=== PATIENT | male | born 1945 | race Caucasian/White ===

== ENCOUNTER 2016-05-19 05:06 | Day surgery (SDC) | payer OTHER ==
[2016-05-18 12:37] VITALS: BMI 29.7
[2016-05-19] MEDS ORDERED: MIDAZOLAM HCL 2 MG/2 ML SINGLE DOSE VIAL ONE ×2 (09:03→09:29)
[2016-05-19] MEDS ORDERED: BUPIVACAINE HCL/PF 0.5% (5MG/ML) 10 ML VIAL ONE (09:15)
[2016-05-19] MEDS ORDERED: CLINDAMYCIN 600 MG PREMIX BAG IVPB ONE (09:31)
[2016-05-19] MEDS ORDERED: BUPIVACAINE HCL/PF 0.5% (5MG/ML) 10 ML VIAL IJ ONE (09:42)
[2016-05-19] MEDS ORDERED: ONDANSETRON 4 MG/2 ML VIAL IVPUSH PRN (10:14)
[2016-05-19] MEDS ORDERED: PROMETHAZINE HCL 25 MG/1 ML VIAL IVPUSH PRN (10:14)
[2016-05-19] MEDS ORDERED: oxyCODONE HCL 5 MG TABLET PO PRN (10:14)
--- NOTE | 2016-05-19 10:20 | HP ---
Admitting History and Physical - Primary Care Physician PCP: David Gill ([employer]) - Admission Chief Complaint: chronic ulceration distal right 2nd toe History of Present Illness: Right 2nd toe is rigidly hammered and patient has suffered from chronic pressure ulceration on the tip of the digit for many months. The wound has been successfully treated with padding and topical wound care and is currently healed. We plan to perform distal amputation electively to prevent pressure wound from recurring. History Source: Medical Record (History deferred to PCP) - Past Medical History Cardiovascular: Yes: HTN, Hyperlipdemia Endocrine: Yes: Diabetes Mellitus (on insulin pump) - Past Surgical History Past Surgical History: Yes: Amputation (tip of right first toe), CABG (in 12/31) - Smoking History Smoking history: Former smoker Have you smoked in the past 12 months: No Aproximately how many cigarettes per day: 4 If you are a former smoker, when did you quit?: 25 YRS AGO - Alcohol/Substance Use Hx Alcohol Use: Yes (occas) History of Substance Use: reports: None - Social History ADL: Independent History of Recent Travel: No Home Medications - Allergies Allergies/Adverse Reactions: Allergies Allergy/AdvReac Type Severity Reaction Status Date / Time Penicillins Allergy Swelling Verified 05/19/16 07:42 Sulfa (Sulfonamide Allergy Swelling Verified 05/19/16 07:42 Antibiotics) - Home Medications Home Medications: Ambulatory Orders Subcutaneous Insulin Pump [Insulin Pump] 1 each MC QID 07/21/11 Atorvastatin Ca [Lipitor] 40 mg PO DAILY 05/12/15 Metoprolol Tartrate [Lopressor -] 25 mg PO BID 06/23/15 Aspirin Coated [Ecotrin -] 81 mg PO DAILY 05/18/16 Clindamycin [Cleocin -] 300 mg PO TID 05/18/16 Ergocalciferol (Vitamin D2) [Vitamin D2] 2,000 unit PO DAILY 05/18/16 Physical Examination Vital Signs: Vital Signs Temperature 96.3 F L 05/19/16 07:38 Pulse Rate 79 05/19/16 07:38 Respiratory Rate 20 05/19/16 07:38 Blood Pressure 161/72 05/19/16 07:38 O2 Sat by Pulse Oximetry (%) 99 05/19/16 07:38 Extremities: Yes: Other (Right 2nd toe is rigidly hammered with chronic cutaneous and naild dystrophy from pressure exerted on these structures. No wound is currently present on the distal aspect of the right 2nd toe.) Peripheral Pulses: Left Doralis Pedis: 2+, Right Dorsalis Pedis: 2+ Assessment/Plan Assessment Right 2nd toe is currently not ulcerated but because of rigid hammering deformity it will reulcerate of not corrected. No cutaneous infection or ulceration is currently present. Plan Distal phalangeal amputation is planned to prevent distal skin damage. I consider this approach to be most conservative while at the same time preventing distal pressure to the toe.
[2016-05-19 10:54] VITALS: TEMP 98.2
--- NOTE | 2016-05-19 10:55 | OP ---
DATE OF OPERATION: 05/19/2016 PREOPERATIVE DIAGNOSIS: Chronic rigid hammertoe, right 2nd, with history of chronic distal toe ulceration. POSTOPERATIVE DIAGNOSIS: Chronic rigid hammertoe, right 2nd, with history of chronic distal toe ulceration. PROCEDURE: Distal amputation of the right 2nd toe at the distal interphalangeal joint on an elective basis. Under fractional anesthesia and a surgical scrub with Betadine scrub and solution x2, the patient was draped using sterile technique. Inspection of the right 2nd toe showed a distal dystrophic nail and skin area from the chronic ulceration that was present previously. Note that there was no erythema, edema, ulceration, or sign of infection at the distal phalanx currently. The proximal interphalangeal joint and the distal interphalangeal joint were rigidly plantarflexed, allowing the toe no range of motion. Following injection of 3 mL of Marcaine 0.5 plain, a curvilinear incision was made around the distal aspect of the toe surrounding the toenail, preserving the plantar fat pad of the digit. The distal phalanx was disarticulated from the middle phalanx using sharp dissection and the entire soft tissue and bony segment, including the distal phalanx, was resected from the toe. The plantar fat pad was carefully preserved, and the plantar flap was reapproximated into a normal anatomic position to cover the amputation site. It was found that the skin flap had to be pulled under slight tension in order to close the wound, so it was decided that a small amount of additional bone could be removed from the distal aspect of the middle phalanx. Using a bone-cutting forceps, this was achieved and then a rongeur was used to round the edges. The wound was copiously irrigated with sterile saline, and then the plantar skin flap was approximated over the distal aspect of the toe and carefully sutured with 3-0 Prolene simple interrupted sutures. The toe now anatomically reduced or should I say the distal skin flap properly placed on the distal aspect of the toe and no excessive bleeding was noted and vascular perfusion to the flap was noted, so an Adaptic and sterile dressing were applied to the toe and the right foot. The patient tolerated surgical procedure well and left the operating room stable, alert, awake, and in no pain. JATINDER OLVERA/[id number]
[2016-05-19 13:00] VITALS: BP 159/94; PULSE 77
--- NOTE | 2016-05-23 13:41 | PATH ---
Surgical Pathology Report Patient Name: MATILDA [place] [facility]. Rec. #: [id number] /Age/Gender: 1945 (Age: 71) / M Account: [id number] Location: [facility] Taken: 05/19/2016 Received: 05/19/2016 Reported: 05/23/2016 Physicians: David Gill M.D. Specimen(s) Received DISTAL PHALANX AMPUTATION RIGHT TOE Clinical History Right foot hammertoe Final Diagnosis DISTAL PHALANX, RIGHT TOE, AMPUTATION: BONE AND CARTILAGE WITH DEGENERATIVE CHANGES. BONE AND SOFT TISSUE AT THE RESECTION MARGIN APPEAR VIABLE. Electronically Signed Khari De La Garza M.D. Gross Description Received in formalin, labeled "distal phalanx amputation right toe" is a 1.9 x 1.4 x 1.1 cm portion of a distal toe amputation specimen. The epidermal surface displays a 1.3 x 0.9 cm garcia unguis. Separately received within the same container are 2 garcia bone fragments averaging 0.7 cm in greatest dimension. Home [facility]osp[facility] Rn sections are submitted in 4 cassettes as follows: 1-bone margin, following decalcification; 2-skin and soft tissue margin; 3-full thickness sections of specimen, following decalcification; 4-separately received bone fragments, following decalcification. 05/22/201605/22/2016
== END 2016-05-19 12:15 | disposition home or self-care (01) ==
LOC: JASU-SURG 05:06
PROVIDERS: ATTEND Podiatrist Foot Surgery
PROC: 0Y6R0Z3 Detachment at Right 2nd Toe, Low, Open Approach (ICD-10-PCS; principal; 2016-05-19 09:00)
DX: M20.41 Other hammer toe(s) (acquired), right foot (principal); E11.622 Type 2 diabetes mellitus with other skin ulcer; L97.519 Non-pressure chronic ulcer of other part of right foot with unspecified severity; Z96.41 Presence of insulin pump (external) (internal); I10 Essential (primary) hypertension
CPT/HCPCS: 73630-TC-RT; 88304-TC; 88311-TC; 94760

== ENCOUNTER 2016-09-20 16:35 | Emergency (ER) | payer OTHER ==
[2016-09-20 16:41] VITALS: BP 149/82; PULSE 99; TEMP 97; BMI 28.8
--- NOTE | 2016-09-20 18:48 | PDOC ---
History of Present Illness - History of Present Illness Initial Comments: 09/20/16 18:42 The patient is a 71 year old male, with a significant past medical history of HTN, DM, CVA, CABG, PVD, and DVT who presents to the emergency department with swelling of right lower extremity. Reports progressive reddening, skin discoloration, and swelling of right lower extremity/ankle of 1 month duration. Currently being treated with antibiotics by Dr. Gill at [facility] for infection of right-sided big toe. Follows Dr. Preston [facility] surgery for PVD. Diagnosed with DVT of right lower extremity by ultrasound 1 month ago. Denies heparin/warfarin anticoagulation. Currently on Aspirin. Reports applying two medicated ointments to right lower leg. Denies calf tenderness, recent traveling, or trauma to leg. Right leg is non weight bearing d/t pain. Reports chronic diabetic neuropathy of BL LE, and denies warm/cold sensations. The patient denies chest pain, shortness of breath, hemoptysis, headache and dizziness. Denies fever, chills, nausea, vomit, diarrhea and constipation. Denies dysuria, frequency, urgency and hematuria. 09/20/16 19:05 <Adiel Stafford - Last Filed: 09/20/16 19:24> <Bam Aviles - Last Filed: 09/21/16 00:55> - General Chief Complaint: Redness To Affected Area Stated Complaint: PCP SENT/RT LEG PAIN Time Seen by Provider: 09/20/16 17:01 Past History - Past Medical History Anemia: No Asthma: No Cancer: No Cardiac Disorders: Yes (CAD) CVA: No COPD: No Dementia: No Diabetes: Yes (iddm on unsulin pump) GI Disorders: No Disorders: No HTN: Yes Hypercholesterolemia: Yes Liver Disease: No Seizures: No Thyroid Disease: No - Surgical History Abdominal Surgery: No Appendectomy: No Cardiac Surgery: Yes (BYPASS 12/31) Cholecystectomy: No Lung Surgery: No Neurologic Surgery: No Orthopedic Surgery: No (Right 1st Toe Debridement) - Psycho/Social/Smoking Cessation Hx Anxiety: No Suicidal Ideation: No Smoking Status: No Smoking History: Former smoker Years of Tobacco Use: 22 Have you smoked in the past 12 months: No Number of Cigarettes Smoked Daily: 4 If you are a former smoker, when did you quit?: 25 YRS Information on smoking cessation initiated: No Hx Alcohol Use: Yes (SOCIAL) Drug/Substance Use Hx: No Substance Use Type: None Hx Substance Use Treatment: No <Adiel Stafford - Last Filed: 09/20/16 19:24> <Bam Aviles - Last Filed: 09/21/16 00:55> - Past Medical History Allergies/Adverse Reactions: Allergies Allergy/AdvReac Type Severity Reaction Status Date / Time Penicillins Allergy Swelling Verified 09/20/16 16:41 Sulfa (Sulfonamide Allergy Swelling Verified 09/20/16 16:41 Antibiotics) Home Medications: Ambulatory Orders Subcutaneous Insulin Pump [Insulin Pump] 1 each MC QID 07/21/11 Atorvastatin Ca [Lipitor] 40 mg PO DAILY 05/12/15 Metoprolol Tartrate [Lopressor -] 25 mg PO BID 06/23/15 Aspirin Coated [Ecotrin -] 81 mg PO DAILY 05/18/16 Clindamycin [Cleocin -] 300 mg PO TID 05/18/16 Review of Systems - Review of Systems Comments:: 09/20/16 18:56 GENERAL/CONSTITUTIONAL: No fever or chills. No weakness. HEAD, EYES, EARS, NOSE AND THROAT: No change in vision. No ear pain or discharge. No sore throat. CARDIOVASCULAR: No chest pain or shortness of breath RESPIRATORY: No cough, wheezing, or hemoptysis. GASTROINTESTINAL: No nausea, vomiting, diarrhea or constipation. GENITOURINARY: No dysuria, frequency, or change in urination. MUSCULOSKELETAL: No joint or muscle swelling or pain. No neck or back pain. Lower right extremity 5/5 strength. SKIN: + bluish/purplish circumferential stasis dermatitis of right lower extremity 2 inches above medial and lateral malleolus extending 4 inches porixmally. Skin is eczematous. Absent drainage and ecchymosis. Palpable dorsal pedal pulses bilaterally. Lower right extremity is TTP, warm, and erythematous. NEUROLOGIC: No headache, vertigo, loss of consciousness, or change in strength. Diminished sensation to pinprick throughout distal BL LE. ENDOCRINE: No increased thirst. No abnormal weight change HEMATOLOGIC/LYMPHATIC: No anemia, easy bleeding, or history of blood clots. ALLERGIC/IMMUNOLOGIC: No hives or skin allergy. <Adiel Stafford - Last Filed: 09/20/16 19:24> *Physical Exam - Vital Signs Last Vital Signs Temp Pulse Resp BP Pulse Ox 97.0 F L 99 H 20 149/82 99 09/20/16 16:37 09/20/16 16:37 09/20/16 16:37 09/20/16 16:37 09/20/16 16:37 <Adiel Stafford - Last Filed: 09/20/16 19:24> - Vital Signs Last Vital Signs Temp Pulse Resp BP Pulse Ox 97.0 F L 99 H 20 149/82 99 09/20/16 16:37 09/20/16 16:37 09/20/16 16:37 09/20/16 16:37 09/20/16 16:37 - Physical Exam Comments: 09/20/16 23:08 EXAMINATION CONSTITUTIONAL: Well-appearing; well-nourished; in no apparent distress HEAD: Normocephalic; atraumatic EYES: PERRL; EOM intact ENMT: External appears normal; normal oropharynx NECK: Supple; non-tender; no cervical lymphadenopathy CARD: Normal S1, S2; no murmurs, rubs, or gallops RESP: Normal chest excursion with respiration; breath sounds clear and equal bilaterally; no wheezes, rhonchi, or rales ABD: Soft, non-distended; non-tender; no palpable organomegaly, no palpable hernias EXT: RLE: + well demarcated area of erythema (approx 46rit0ol) to the distal 1/ 3 of the lower extr, warm to touch, with several plaque like lessions along the periphery of the lession, with +3 pitting edema c/w cellulitis. + stage 3 ulcer to the plantar aspect of the distal phalnge of the right great toe w/o surrounding erythema/purulence. LLE: 2cm plaque like lession to the lateral aspect of mid lower extr; with +2 pitting edema. SKIN: Warm, dry, see above. NEURO: No focal neurological deficiencies. <Bam Aviles - Last Filed: 09/21/16 00:55> ED Treatment Course - RADIOLOGY Radiology Studies Ordered: Category Date Time Status DUPLEX VASCUL US-1 LEG [US] Stat Ultrasound 09/20/16 18:20 Ordered <Adiel Stafford - Last Filed: 09/20/16 19:24> - LABORATORY CBC & Chemistry Diagram: 09/20/16 19:19 09/20/16 19:19 - ADDITIONAL ORDERS Additional order review: Laboratory Results 09/20/16 09/20/16 19:19 19:19 INR 1.04 Sodium 137 Potassium 4.5 Chloride 104 Carbon Dioxide 28 Anion Gap 5 L BUN 24 H D Creatinine 1.2 Creat Clearance w eGFR 59.68 Random Glucose 60 L D Calcium 8.9 Total Bilirubin 1.4 H D AST 21 ALT 19 D Alkaline Phosphatase 85 Total Protein 7.2 Albumin 3.6 09/20/16 19:19 RBC 4.37 MCV 83.4 MCHC 34.0 RDW 12.8 MPV 8.6 Neutrophils % 76.0 D Lymphocytes % 13.2 D Monocytes % 8.9 Eosinophils % 1.4 Basophils % 0.5 - Medications Given in the ED: ED Medications Discontinued Medications Generic Name Dose Route Start Last Admin Trade Name Freq PRN Reason Stop Dose Admin Dalbavancin 1,500 mg/ Dextrose 500 mls @ 1,000 mls/hr 09/20/16 22:14 09/20/16 23:05 IVPB 09/20/16 22:43 1,000 mls/hr ONCE ONE Administration <Bam Aviles - Last Filed: 09/21/16 00:55> Medical Decision Making - Medical Decision Making 09/20/16 19:05 71 yo male with h/o PVD, DVT, DM, CVA, and CABG who presents with redness and swelling of RL extremity Recently dx. with DVT on U/S 1 month ago. ED Course: - CBC - PT/INR - Blood Culture - Venous ultrasound right LE 09/20/16 19:15 <Adiel Stafford - Last Filed: 09/20/16 19:24> *DC/Admit/Observation/Transfer - Attestations Physician Attestion: 09/20/16 19:25 I, Dr. Adiel Stafford, attest that this document has been prepared under my direction and personally reviewed by me in its entirety. I further attest, that it accurately reflects all work, treatment, procedures and medical decision -making performed by me. <Adiel Stafford - Last Filed: 09/20/16 19:24> <aBm Aviles - Last Filed: 09/21/16 00:55> Diagnosis at time of Disposition: Cellulitis Qualifiers: Site of cellulitis: extremity Site of cellulitis of extremity: lower extremity Laterality: right Qualified Code(s): L03.115 - Cellulitis of right lower limb - Discharge Dispostion Disposition: HOME Condition at time of disposition: Stable - Referrals Referrals: Cas Rollins MD [Primary Care Provider] - - Patient Instructions Printed Discharge Instructions: DI for Cellulitis -- Adult
[2016-09-20 20:17] LABS: ALBUMIN 3.6 g/dl (3.4-5.0); ANION GAP 5 (8-16); BILIRUBIN,TOTAL 1.4 mg/dL (0.2-1.0); CALCIUM 8.9 mg/dL (8.5-10.1); CO2 28 mmol/L (21-32); CREATININE 1.2 mg/dL (0.7-1.3); GLUCOSE,RANDOM 60 mg/dL (74-106); SGOT/AST 21 U/L (15-37); SGPT/ALT 19 U/L (12-78); TOT PROT 7.2 g/dl (6.4-8.2)
[2016-09-20 20:18] LABS: ALK PHOS 85 U/L (45-117); INR 1.04 (0.82-1.09); PROTHROMBIN TIME (PATIENT) 11.5 SEC (9.98-11.88)
[2016-09-20 20:29] LABS: BASOPHIL 0.5 % (0-2.0); EOSINOPHIL 1.4 % (0-4.5); MCH 28.3 pg (25.7-33.7); MEAN CELL VOLUME 83.4 fl (80-96); MEAN PLT VOLUME 8.6 fl (7.5-11.1); PLATELET COUNT 226 K/MM3 (134-434); RDW 12.8 % (11.9-15.9); WHITE BLOOD COUNT 7.8 K/mm3 (4.0-10.0)
[2016-09-20] MEDS ORDERED: DALBAVANCIN HCL 1,500 MG in DEXTROSE 5%-WATER - 500 ML IVPB ONE (22:14)
[2016-09-20] MEDS ORDERED: DALBAVANCIN HCL 500 MG VIAL (RESTRICTED TO ID ONLY) IVPB ONE ×2 (22:47→22:49)
--- NOTE | 2016-09-20 23:46 | PDOC ---
Attending Attestation - Resident Resident Name: Adiel Stafford - ED Attending Attestation I have performed the following: I have examined & evaluated the patient, The case was reviewed & discussed with the resident, I agree w/resident's findings & plan, Exceptions are as noted - HPI HPI: 09/20/16 23:44 71-year-old male with history of diabetes and peripheral vascular disease presents with worsening right lower extremity erythema over the past several weeks that has failed outpatient therapy with clindamycin, with associated generalized weakness, malaise, elevated blood sugar despite compliance with hypoglycemic medication regimen and chills. - Physicial Exam PE: 09/20/16 23:45 Patient is awake and alert, nontoxic-appearing, afebrile in the ED. Right lower extremity reveals an approximately 10 x 8 cm area of well demarcated erythema which is warm to touch with several plaque-like lesions along the periphery of the lesion consistent with cellulitis. Right great toe also reveals a 0.5 cm stage III ulceration to the plantar aspect of distal phalanx. - Medical Decision Making 09/20/16 23:46 Patient is a well-appearing 71-year-old male with history diabetes and peripheral vascular disease who presents with right lower extremity edema and erythema. Doppler ultrasound shows no evidence of DVT. CBC/CMP within normal limit. A discussed the case with Dr. Jax jacobsen. We'll administer Fritch's and will discharge with outpatient follow-up.
== END 2016-09-21 00:55 | disposition home or self-care (01) ==
LOC: JER 16:35
DX: L03.115 Cellulitis of right lower limb (principal); I10 Essential (primary) hypertension; E11.9 Type 2 diabetes mellitus without complications; Z86.73 Personal history of transient ischemic attack (TIA), and cerebral infarction without residual deficits; Z95.1 Presence of aortocoronary bypass graft; Z86.718 Personal history of other venous thrombosis and embolism; Z79.4 Long term (current) use of insulin; E78.00 Pure hypercholesterolemia, unspecified
CPT/HCPCS: 36415; 80053; 85025; 85610; 87040; 93971-TC; 99283-25; J0875

== ENCOUNTER 2016-10-04 16:20 | Inpatient (IN) | payer OTHER ==
--- NOTE | 2016-10-04 16:51 | PDOC ---
History of Present Illness <Bam Aviles - Last Filed: 10/04/16 18:38> - History of Present Illness Initial Comments: 10/04/16 17:17 Patient is a 71 year old male with significant medical hx of HTN, DM, CVA, CABG , PVD, and DVT who is presenting to the ED with elevated blood sugar measurements for the past two days. Patient reports having blood sugar measurement of 384 several hours after having a bowl of cereal with a banana this morning. He states that he the same thing happened to him yesterday. Patient notes that he is on an insulin pump and that his sugar read 87 in the ED. Patient began treatment with dalvance ten days ago when he was last seen in the ED for right leg cellulitis. He notes that he recently began clindamycin again in addition for treatment. He reports improvement since his last visit. The patient is followed by Dr. Gill for podiatry and today the patient was x- rayed which revealed erosion of the right toe and he is scheduled for amputation of the toe this Sunday. PCP: Cas Rollins MD Allergies: Penicillins, Sulfa <Gilda Syed - Last Filed: 10/04/16 21:17> - General Chief Complaint: Blood Sugar Problem Stated Complaint: PCP SENT Time Seen by Provider: 10/04/16 16:50 Past History - Past Medical History Anemia: No Asthma: No Cancer: No Cardiac Disorders: Yes (CAD) CVA: No COPD: No Dementia: No Diabetes: Yes (iddm on unsulin pump) GI Disorders: No Disorders: No HTN: Yes Hypercholesterolemia: Yes Liver Disease: No Seizures: No Thyroid Disease: No - Surgical History Abdominal Surgery: No Appendectomy: No Cardiac Surgery: Yes (BYPASS 12/31) Cholecystectomy: No Lung Surgery: No Neurologic Surgery: No Orthopedic Surgery: No (Right 1st Toe Debridement) - Psycho/Social/Smoking Cessation Hx Anxiety: No Suicidal Ideation: No Smoking Status: No Smoking History: Never smoked Years of Tobacco Use: 22 Have you smoked in the past 12 months: No Number of Cigarettes Smoked Daily: 4 If you are a former smoker, when did you quit?: 25 YRS Hx Alcohol Use: No Drug/Substance Use Hx: No Substance Use Type: None Hx Substance Use Treatment: No <Bam Aviles - Last Filed: 10/04/16 18:38> <Gilda Syed - Last Filed: 10/04/16 21:17> - Past Medical History Allergies/Adverse Reactions: Allergies Allergy/AdvReac Type Severity Reaction Status Date / Time Penicillins Allergy Swelling Verified 10/04/16 16:31 Sulfa (Sulfonamide Allergy Swelling Verified 10/04/16 16:31 Antibiotics) Home Medications: Ambulatory Orders Subcutaneous Insulin Pump [Insulin Pump] 1 each MC QID 07/21/11 Atorvastatin Ca [Lipitor] 40 mg PO DAILY 05/12/15 Metoprolol Tartrate [Lopressor -] 25 mg PO BID 06/23/15 Aspirin Coated [Ecotrin -] 81 mg PO DAILY 05/18/16 Clindamycin [Cleocin -] 300 mg PO TID 05/18/16 Bactroban Ointment (For Decolonization) - 1 applic TT BID 10/04/16 Clobetasol Prop 0.05% Top Cr 1 applic TP BID 10/04/16 Review of Systems - Review of Systems Comments:: 10/04/16 17:18 CONSTITUTIONAL: No fever, no chills, no fatigue EYES: No visual changes ENT: No ear pain, no sore throat CARDIOVASCULAR: No chest pain, no palpitations RESPIRATORY: No cough, no SOB GI: No abdominal pain, no nausea, no vomiting, no constipation, no diarrhea GENITOURINARY: No dysuria, no frequency, no hematuria MUSKULOSKELETAL: Right leg cellulitis. No backpain, no joint pain, no myalgias ENDOCRINE: Hyperglycemia SKIN: No rash NEURO: No headache <Gilda Syed - Last Filed: 10/04/16 21:17> *Physical Exam - Vital Signs Last Vital Signs Temp Pulse Resp BP Pulse Ox 98.1 F 84 20 113/50 98 10/04/16 16:27 10/04/16 16:27 10/04/16 16:27 10/04/16 16:27 10/04/16 16:27 - Physical Exam Comments: 10/04/16 18:38 EXTR: Right lower extremity: Minimal erythema to the medial aspect of the distal third of the lower extremity, well demarcated, warm to touch; great toe is erythematous with a stage IV ulceration noted with bone exposed consistent with osteomyelitis; dorsalis pedis and tibialis posterior are dopplerable bilaterally. <Bam Aviles - Last Filed: 10/04/16 18:38> - Vital Signs Last Vital Signs Temp Pulse Resp BP Pulse Ox 98.1 F 84 20 113/50 98 10/04/16 16:27 10/04/16 16:27 10/04/16 16:27 10/04/16 16:27 10/04/16 16:27 - Physical Exam Comments: 10/04/16 17:19 CONSTITUTIONAL: Well-appearing; well-nourished; in no apparent distress HEAD: Normocephalic; atraumatic EYES: PERRL; EOM intact ENMT: External appears normal; normal oropharynx NECK: Supple; non-tender; no cervical lymphadenopathy CARD: Normal S1, S2; no murmurs, rubs, or gallops RESP: Normal chest excursion with respiration; breath sounds clear and equal bilaterally; no wheezes, rhonchi, or rales ABD: Soft, non-distended; non-tender; no palpable organomegaly, no palpable hernias SKIN: Warm, dry, no rash NEURO: No focal neurological deficiencies. <Gilda Syed - Last Filed: 10/04/16 21:17> Heart Score/ECG Review #1 10/04/16 21:17 Normal sinus rhythm at 72 bpm Normal ECG <Gilda Syed - Last Filed: 10/04/16 21:17> ED Treatment Course - LABORATORY CBC & Chemistry Diagram: 10/04/16 17:20 10/04/16 17:20 <Bam Aviles - Last Filed: 10/04/16 18:38> - LABORATORY CBC & Chemistry Diagram: 10/04/16 17:20 10/04/16 18:16 - RADIOLOGY Radiograph Interpretation: 10/04/16 21:16 Vascular Study Impression: No DVT is identified involving either leg. Please see report. Reported By: Dave Chin MD <Gilda Syed - Last Filed: 10/04/16 21:17> Medical Decision Making - Medical Decision Making 10/04/16 18:41 Patient 71-year-old male with history of diabetes and peripheral vascular disease who recently was treated with Dalvance and by mouth clindamycin for suspected right lower externally cellulitis is referred to the ER by Dr. Gill of podiatry for suspected osteomyelitis of right great toe. Patient also complaining of intermittent hyperglycemia with a past several days while being compliant with his diabetic diet and insolent regimen. In the ER, patient is awake and alert, nontoxic-appearing, afebrile. Physical evaluation reveals decreased erythema of the right lower extremity consistent with improving cellulitis and a stage IV ulceration of the right great toe consistent with osteomyelitis. Patient will require admission for IV antibiotics and amputation with podiatry in several days. I discussed the case with Dr. Gastelum of infectious disease. She recommends administration of vancomycin and Levaquin; we 'll consult podiatry as well as vascular surgery. Will admit. <Bam Aviles - Last Filed: 10/04/16 18:38> *DC/Admit/Observation/Transfer - Discharge Dispostion Admit: Yes - Attestations Physician Attestion: 10/04/16 18:38 The documentation was prepared by the scribe under my direct supervision. I have reviewed the documentation which correctly represents the findings, medical decision-making and critical action taken by me. <Bam Aviles - Last Filed: 10/04/16 18:38> - Attestations Scribe Attestion: 10/04/16 17:19 Documentation prepared by Gilda Syed, acting as medical language specialist for Bam Aviles MD. <Gilda Syed - Last Filed: 10/04/16 21:17> Diagnosis at time of Disposition: Toe osteomyelitis, right
[2016-10-04] MEDS ORDERED: VANCOMYCIN 1,500 MG in DEXTROSE 5%-WATER - 500 ML IVPB ONE (17:17)
[2016-10-04] MEDS ORDERED: LEVOFLOXACIN 500 MG IVPB 100 ML IVPB ONE ×2 (17:17→17:27)
[2016-10-04 17:37] LABS: MCH 28.2 pg (25.7-33.7); MCHC 33.5 g/dl (32.0-35.9); MEAN CELL VOLUME 84.1 fl (80-96); MEAN PLT VOLUME 8.9 fl (7.5-11.1); NEUTROPHILS 70.5 % (42.8-82.8); PLATELET COUNT 305 K/MM3 (134-434)
[2016-10-04 18:19] LABS: ALBUMIN 3.6 g/dl (3.4-5.0); ANION GAP 7 (8-16); BILIRUBIN,TOTAL 1.3 mg/dL (0.2-1.0); C-REACTIVE PROTEIN 2.6 MG/DL (0.00-0.3); CALCIUM 9.1 mg/dL (8.5-10.1); CO2 28 mmol/L (21-32); CREATININE 1.3 mg/dL (0.7-1.3); GLUCOSE,RANDOM 57 mg/dL (74-106); SGPT/ALT 19 U/L (12-78); TOT PROT 7.8 g/dl (6.4-8.2)
[2016-10-04 18:20] LABS: ALK PHOS 95 U/L (45-117)
[2016-10-04 18:31] LABS: SGOT/AST 32 U/L (15-37)
[2016-10-04 18:41] LABS: INR 1.04 (0.82-1.09); PROTHROMBIN TIME (PATIENT) 11.5 SEC (9.98-11.88)
[2016-10-04 18:59] LABS: ERYTHROCYTE SEDIMENTATION RATE 52 mm/hr (0-20)
[2016-10-04 19:16] LABS: ALBUMIN 3.5 g/dl (3.4-5.0); ANION GAP 7 (8-16); BILIRUBIN,TOTAL 1.1 mg/dL (0.2-1.0); C-REACTIVE PROTEIN 2.2 MG/DL (0.00-0.3); CO2 28 mmol/L (21-32); CREATININE 1.3 mg/dL (0.7-1.3); GLUCOSE,RANDOM 125 mg/dL (74-106); SGOT/AST 15 U/L (15-37); SGPT/ALT 16 U/L (12-78); TOT PROT 7.3 g/dl (6.4-8.2)
[2016-10-04 19:17] LABS: ALK PHOS 90 U/L (45-117)
[2016-10-04 19:25] VITALS: BMI 29.7
[2016-10-04] MEDS ORDERED: ACETAMINOPHEN 325 MG TABLET (FP) PO PRN (19:47)
[2016-10-04] MEDS: HEPARIN NA (PORCINE) 5,000 UNITS/ML 1ML VIAL SQ SCH (22:22)
[2016-10-04] MEDS: ATORVASTATIN CA 40 MG TABLET (FP) PO SCH (22:23)
[2016-10-04] MEDS: METOPROLOL TARTRATE 25 MG TABLET (FP) PO SCH (22:23)
[2016-10-05 07:29] LABS: INR 1.03 (0.82-1.09); PROTHROMBIN TIME (PATIENT) 11.3 SEC (9.98-11.88)
[2016-10-05 07:30] LABS: BASOPHIL 0.9 % (0-2.0); MCH 28.4 pg (25.7-33.7); MCHC 33.8 g/dl (32.0-35.9); NEUTROPHILS 63.6 % (42.8-82.8); PLATELET COUNT 225 K/MM3 (134-434); WHITE BLOOD COUNT 6.5 K/mm3 (4.0-10.0)
[2016-10-05 07:31] LABS: ACTIVATED PTT 30.1 SECONDS (26.9-34.4)
[2016-10-05 07:43] LABS: ALBUMIN 3.2 g/dl (3.4-5.0); ALK PHOS 81 U/L (45-117); ANION GAP 4 (8-16); BILIRUBIN,TOTAL 0.8 mg/dL (0.2-1.0); CO2 31 mmol/L (21-32); CREATININE 1.1 mg/dL (0.7-1.3); GLUCOSE,RANDOM 111 mg/dL (74-106); SGOT/AST 18 U/L (15-37); SGPT/ALT 17 U/L (12-78); TOT PROT 6.8 g/dl (6.4-8.2)
--- NOTE | 2016-10-05 08:21 | HP ---
Admitting History and Physical - Admission History of Present Illness: 71 year old male with significant medical hx of HTN, DM, CVA, CABG, PVD, and ? DVT who is presenting to the ED with elevated blood sugar measurements for the past two days. Patient reports having blood sugar measurement of 384 several hours after having a bowl of cereal with a banana this morning. He states that he the same thing happened to him yesterday. Patient notes that he is on an insulin pump and that his sugar read 87 in the ED. Patient began treatment with dalvance ten days ago when he was last seen in the ED for right leg cellulitis. He notes that he recently began clindamycin again in addition for treatment. He reports improvement since his last visit. The patient is followed by Dr. Gill for podiatry and today the patient was x- rayed which revealed erosion of the right toe and he is scheduled for amputation of the toe this Sunday. 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: Yes: CVA Cardiovascular: Yes: CAD (-S/P CABG), HTN, Hyperlipdemia, Other (pad) Endocrine: Yes: Diabetes Mellitus (on insulin pump) - Past Surgical History Past Surgical History: Yes: Amputation (tip of right first toe), CABG (in 12/31) - Smoking History Smoking history: Former smoker Have you smoked in the past 12 months: No Aproximately how many cigarettes per day: 4 If you are a former smoker, when did you quit?: 25 YRS - Alcohol/Substance Use Hx Alcohol Use: No History of Substance Use: reports: None - Social History ADL: Independent History of Recent Travel: No Home Medications - Allergies Allergies/Adverse Reactions: Allergies Allergy/AdvReac Type Severity Reaction Status Date / Time Penicillins Allergy Swelling Verified 10/04/16 16:31 Sulfa (Sulfonamide Allergy Swelling Verified 10/04/16 16:31 Antibiotics) - Home Medications Home Medications: Ambulatory Orders Subcutaneous Insulin Pump [Insulin Pump] 1 each MC QID 07/21/11 Atorvastatin Ca [Lipitor] 40 mg PO DAILY 05/12/15 Metoprolol Tartrate [Lopressor -] 25 mg PO BID 06/23/15 Aspirin Coated [Ecotrin -] 81 mg PO DAILY 05/18/16 Clindamycin [Cleocin -] 300 mg PO TID 05/18/16 Bactroban Ointment (For Decolonization) - 1 applic TT BID 10/04/16 Clobetasol Prop 0.05% Top Cr 1 applic TP BID 10/04/16 Physical Examination Vital Signs: Vital Signs Temperature 97.9 F 10/05/16 07:00 Pulse Rate 66 10/05/16 07:00 Respiratory Rate 20 10/05/16 07:00 Blood Pressure 139/65 10/05/16 07:00 O2 Sat by Pulse Oximetry (%) 95 10/04/16 21:00 Cardiovascular: Yes: Regular Rate and Rhythm Respiratory: Yes: Regular, CTA Bilaterally Gastrointestinal: Yes: Normal Bowel Sounds, Soft. No: Tenderness Extremities: Yes: Erythema (OF RIGHT LEG ULCER ON TIP OF TOE--NO DRIANGE) Wound/Incision: Yes: Dressing Removed, Excoriated. No: Draining Labs: CBC, BMP 10/05/16 05:35 Problem List - Problems (1) Toe osteomyelitis, right Assessment/Plan: IV ABX PER ID XRAY RESULTS--MRI PODIATRY/VASCULAR Code(s): M86.9 - OSTEOMYELITIS, UNSPECIFIED (2) Type 2 diabetes mellitus treated with insulin Assessment/Plan: BGM INSULIN ENDO Code(s): E11.9 - TYPE 2 DIABETES MELLITUS WITHOUT COMPLICATIONS Z79.4 - GLASS CUTTER (CURRENT) USE OF INSULIN (3) Arteriosclerotic heart disease (ASHD) Assessment/Plan: CARDIO EKG Code(s): I25.10 - ATHSCL HEART DISEASE OF [place] CORONARY ARTERY W/O ANG PCTRS (4) Hx of CABG Assessment/Plan: ABOVE Code(s): Z95.1 - PRESENCE OF AORTOCORONARY BYPASS GRAFT
[2016-10-05 09:13] LABS: C-REACTIVE PROTEIN 1.9 MG/DL (0.00-0.3)
[2016-10-05] MEDS: METOPROLOL TARTRATE 25 MG TABLET (FP) PO SCH ×2 (09:37→21:33)
[2016-10-05] MEDS: HEPARIN NA (PORCINE) 5,000 UNITS/ML 1ML VIAL SQ SCH ×2 (09:37→21:32)
--- NOTE | 2016-10-05 11:28 | PN ---
Teaching Attending Note Name of Resident: Nabil aMrsh ATTENDING PHYSICIAN STATEMENT I saw and evaluated the patient. I reviewed the resident's note and discussed the case with the resident. I agree with the resident's findings and plan as documented. SUBJECTIVE: Evaluated with resident Chronic infection right great toe for years Has had amputation partial distal great toe 2nd toe Afebrile Poorly controlled DM OBJECTIVE: IDDM Chronic osteo great toe Stasis dermatitis LE ASSESSMENT AND PLAN: No antibiotics currently need Surgical consult for possible amputation of the great toe Stasis Dermatitis treated topically per Dr Rc Laws MD Problem List - Problems (1) Toe osteomyelitis, right Code(s): M86.9 - OSTEOMYELITIS, UNSPECIFIED (2) Type 2 diabetes mellitus treated with insulin Code(s): E11.9 - TYPE 2 DIABETES MELLITUS WITHOUT COMPLICATIONS Z79.4 - ASSISTED (CURRENT) USE OF INSULIN
[2016-10-05 11:33] LABS: URINE APPEARANCE CLEAR; URINE BILIRUBIN NEGATIVE (NEGATIVE); URINE BLOOD NEGATIVE (NEGATIVE); URINE COLOR LTYELLOW; URINE GLUCOSE (UA) 1+ (NEGATIVE); URINE KETONE NEGATIVE (NEGATIVE); URINE LEUK ESTERASE NEGATIVE (NEGATIVE); URINE NITRITE NEGATIVE (NEGATIVE); URINE PROTEIN NEGATIVE (NEGATIVE); URINE UROBILINOGEN NEGATIVE mg/dL (0.2-1.0)
--- NOTE | 2016-10-05 12:03 | CONSULT ---
Consultation: REQUESTING PROVIDER: CONSULT REQUEST: We have been asked to medically evaluate this patient for osteomyelitis and suspected cellulitis. HISTORY OF PRESENT ILLNESS: 71 yo man w/ pmh of DM2, HTN, and PVD who initially presented to ED due to hyperglycemia, currently requiring ID consult for osteomyelitis of R big toe and resolving rash on R LE. Pt currently being followed for chronic ulcer of R 1st digit secondary to PVD from DM2 by his podiatric medicine professor, Dr. Gill. Presented to ED roughly 10 days ago for worsening rash on anterior sandy of a few weeks duration, accompanied by worsening shooting pains to R dorsal hindfoot and calve , as well as mild fever. Pt had been receiving clindamycin as an outpt for rash , prescribed by his television script writer. Received 1 dose of dalvance in ED and discharged, with continuation of clindamycin. Since then, rash has been resolving. Pt endorses using topical clobetasol/bactroban for rash, with significant improvement and resolution of symptoms/improving ambulation. On current admission, recent XR of R foot suggestive of osteomyelitis of distal aspect of 1st digit. Pt endorses discussion with vascular surgeon about "marge procedure" to potential selectively remove infected bone from 1st digit. States that he experiences some chronic pain with ambulation on R foot and has had this condition for "years". Endorses chronic erythema and drainage from dorsal ulcer. Has received partial amputation of distal aspect of 1st and 2nd digit, likely due to PVD. He denies any fever, TAVERAS, chills, other rashes, cough, CP, N/V , abdominal pain, dysuria or diarrhea. No recent travel or sick contacts. Ed course notable for: 1. Vancomycin 1.5g IV once 2. Levaquin 500mg IV 3. Afebrile, normal WBC PMHx CVA CAD HTN HLD DM2 - on insulin pump. W/ peripheral neuropathy, not currently taking any medication. PSHx CABG in 2015 Amputation of 1st and 2nd distal phalanx of R foot Allergies Penicillin - Swelling Sulfa - Swelling Fam Hx non-contributory Social Hx No drug use. Social drinker. 25 year smoker, 4 cigs per day, quit 27 years ago. REVIEW OF SYSTEMS: CONSTITUTIONAL: Absent: fever, chills, diaphoresis, generalized weakness, malaise HEENT: Absent: rhinorrhea, nasal congestion, throat pain, throat swelling CARDIOVASCULAR: Absent: chest pain, syncope, palpitations, irregular heart rate, lightheadedness , peripheral edema RESPIRATORY: Absent: cough, shortness of breath, hemoptysis GASTROINTESTINAL: Absent: abdominal pain, abdominal distension, nausea, vomiting, diarrhea, constipation, melena, hematochezia GENITOURINARY: Absent: dysuria, frequency, urgency, hesitancy, hematuria, flank pain, genital pain MUSCULOSKELETAL: Pain with ambulation due to R big toe infection and paresthesias from R leg rash, chronic ulcer on dorsal aspect of big toe Absent: myalgia, arthralgia SKIN: BL LE rash on anterior shins, chronic erythema diffusely on 1st digit Absent: rash, itching, pallor HEMATOLOGIC/IMMUNOLOGIC: Absent: easy bleeding, easy bruising NEUROLOGIC: Absent: headache, focal weakness or paresthesias, unsteady gait PHYSICAL EXAMINATION CBC, BMP 10/05/16 05:35 10/05/16 05:35 Vital Signs - 24 hr 10/04/16 10/04/16 10/04/16 19:04 19:21 21:00 Temperature Pulse Rate 72 Pulse Rate [ 74 Radial] Respiratory 18 18 Rate Blood Pressure 137/68 Blood Pressure 132/80 [Right Arm] O2 Sat by Pulse 95 100 95 Oximetry (%) 10/04/16 10/05/16 10/05/16 22:00 07:00 10:00 Temperature 98.7 F 97.9 F 98.1 F Pulse Rate 75 66 70 Pulse Rate [ Radial] Respiratory 18 20 18 Rate Blood Pressure 143/72 139/65 136/65 Blood Pressure [Right Arm] O2 Sat by Pulse Oximetry (%) GENERAL: Awake, alert, and fully oriented, in no acute distress. HEAD: Normal with no signs of trauma. EYES: sclera anicteric, conjunctiva clear. No lid lag. LUNGS: Breath sounds equal, clear to auscultation bilaterally. No wheezes, and no crackles. No accessory muscle use. HEART: Regular rate and rhythm, normal S1 and S2 without murmur, rub or gallop. ABDOMEN: Soft, nontender, not distended, normoactive bowel sounds, no guarding, no rebound, no masses. MUSCULOSKELETAL: Normal range of motion at all joints. No bony deformities or tenderness. No CVA tenderness. UPPER EXTREMITIES: 2+ pulses, warm, well-perfused. No cyanosis. No clubbing. Cap refill <2 seconds. No peripheral edema. LOWER EXTREMITIES: BL resolving statis dermatitis on anterior shins, worse on R. Diffuse erythema of 1st digit with draining ulcer on dorsal surface of PIP, now most distal portion of toe. Amputation of DIP of R 1st and 2nd digit. 2+ pulses, warm, well-perfused. No calf tenderness. No peripheral edema. NEUROLOGICAL: Cranial nerves II-XII grossly intact. Intact sensation through LEs. 5/5 strength in all muscle groups. Normal speech. Gait not evaluated. PSYCHIATRIC: Cooperative. Good eye contact. Appropriate mood and affect. SKIN: Warm, dry, normal turgor. BL stasis dermatitis on anterior aspect of LE from midshin to ankle. Laboratory Results - last 24 hr 10/04/16 10/04/16 10/04/16 18:16 18:16 18:16 WBC RBC Hgb Hct MCV MCH MCHC RDW Plt Count MPV Neutrophils % Lymphocytes % Monocytes % Eosinophils % Basophils % ESR INR 1.04 PTT (Actin FS) Sodium 138 Potassium 4.6 Chloride 103 Carbon Dioxide 28 Anion Gap 7 L BUN 26 H Creatinine 1.3 Creat Clearance w eGFR 54.42 Random Glucose 125 H D Hemoglobin A1c % Calcium 9.0 Total Bilirubin 1.1 H AST 15 D ALT 16 Alkaline Phosphatase 90 C-Reactive Protein 2.2 H D Total Protein 7.3 Albumin 3.5 Urine Color Urine Appearance Urine pH Urine Protein Urine Glucose (UA) Urine Ketones Urine Blood Urine Nitrite Urine Bilirubin Urine Urobilinogen Ur Leukocyte Esterase Blood Type O POSITIVE Antibody Screen Negative 10/04/16 10/05/16 10/05/16 20:00 05:35 05:35 WBC 6.5 D RBC 4.22 Hgb 12.0 Hct 35.5 MCV 84.0 MCH 28.4 MCHC 33.8 RDW 13.0 Plt Count 225 D MPV 8.0 D Neutrophils % 63.6 Lymphocytes % 22.1 D Monocytes % 9.4 Eosinophils % 4.0 D Basophils % 0.9 ESR Cancelled INR 1.03 PTT (Actin FS) 30.1 Sodium Potassium Chloride Carbon Dioxide Anion Gap BUN Creatinine Creat Clearance w eGFR Random Glucose Hemoglobin A1c % Calcium Total Bilirubin AST ALT Alkaline Phosphatase C-Reactive Protein Total Protein Albumin Urine Color Urine Appearance Urine pH Urine Protein Urine Glucose (UA) Urine Ketones Urine Blood Urine Nitrite Urine Bilirubin Urine Urobilinogen Ur Leukocyte Esterase Blood Type Antibody Screen 10/05/16 10/05/16 10/05/16 05:35 05:35 08:00 WBC RBC Hgb Hct MCV MCH MCHC RDW Plt Count MPV Neutrophils % Lymphocytes % Monocytes % Eosinophils % Basophils % ESR INR PTT (Actin FS) Sodium 138 Potassium 4.4 Chloride 103 Carbon Dioxide 31 Anion Gap 4 L BUN 22 H Creatinine 1.1 Creat Clearance w eGFR > 60 Random Glucose 111 H Hemoglobin A1c % 9.3 H Calcium 9.0 Total Bilirubin 0.8 D AST 18 ALT 17 Alkaline Phosphatase 81 C-Reactive Protein 1.9 H D Total Protein 6.8 Albumin 3.2 L Urine Color Ltyellow Urine Appearance Clear Urine pH 6.0 Urine Protein Negative Urine Glucose (UA) 1+ H Urine Ketones Negative Urine Blood Negative Urine Nitrite Negative Urine Bilirubin Negative Urine Urobilinogen Negative Ur Leukocyte Esterase Negative Blood Type Antibody Screen 10/05/16 08:55 WBC RBC Hgb Hct MCV MCH MCHC RDW Plt Count MPV Neutrophils % Lymphocytes % Monocytes % Eosinophils % Basophils % ESR INR PTT (Actin FS) Sodium Potassium Chloride Carbon Dioxide Anion Gap BUN Creatinine Creat Clearance w eGFR Random Glucose Hemoglobin A1c % Calcium Total Bilirubin AST ALT Alkaline Phosphatase C-Reactive Protein Cancelled Total Protein Albumin Urine Color Urine Appearance Urine pH Urine Protein Urine Glucose (UA) Urine Ketones Urine Blood Urine Nitrite Urine Bilirubin Urine Urobilinogen Ur Leukocyte Esterase Blood Type Antibody Screen XR of foot (10/04) - Suggestive of osteomyelitis of R 1st digit. CXR (10/04) - unremarkable. No pulmonary disease. Active Medications Generic Name Dose Route Start Last Admin Trade Name Freq PRN Reason Stop Dose Admin Acetaminophen 650 mg 10/04/16 19:47 Tylenol - PO Q4H PRN FEVER OR PAIN Atorvastatin Calcium 40 mg 10/04/16 22:00 10/04/16 22:23 Lipitor - PO 40 mg HS RIO Administration Heparin Sodium (Porcine) 5,000 unit 10/04/16 22:00 10/05/16 09:37 Heparin - SQ 5,000 unit BID ROI Administration Metoprolol Tartrate 25 mg 10/04/16 22:00 10/05/16 09:37 Lopressor - PO 25 mg BID RIO Administration ASSESSMENT/PLAN: Assessment: 71 yo man w/ pmh of DM2, HTN, and PVD who initially presented to ED due to hyperglycemia, currently w/ osteomyelitis of R big toe and resolving rash on R LE. LE extremity rash likely statis dermatitis due to PVD, no evidence of cellulitis or active infectious process. R 1st digit with dorsal ulcer, mild erythema and drainage. Pt appears exasperated with toe and advocating for "Magre procedure". Imaging suggestive of osteomyelitis. Pt non- toxic, afebrile, with no WBC elevation and no infectious symptoms. Will not require abx at this time. Active problem list: Osteomyelitis of distal R 1st digit PVD w/ statis dermatitis of LEs DM2 Hyperglycemia Plan: #Lower extremity rash - Likely statis dermatitis - Will not require abx at this time - Continue topical w/ bactroban/clobetasol - f/u w/ outpt television script writer - Monitor for an infectious sxs's #Osteomyelitis - XR of R foot suggestive of osteomyelitis - Consult vascular surgery on possible selective amputation - Outpt management w/ podiatric medicine professor, Dr. Jairo Marsh MD, PGY1 Plan discussed w/ attending, Dr. Laws Dispo: We will continue to follow the patient. Thank you for this consultative opportunity. Problem List - Problems (1) Toe osteomyelitis, right Code(s): M86.9 - OSTEOMYELITIS, UNSPECIFIED (2) Type 2 diabetes mellitus treated with insulin Code(s): E11.9 - TYPE 2 DIABETES MELLITUS WITHOUT COMPLICATIONS Z79.4 - PSYCHOMETRIC EXAMINER (CURRENT) USE OF INSULIN (3) Peripheral vascular disease Code(s): I73.9 - PERIPHERAL VASCULAR DISEASE, UNSPECIFIED Visit type - Emergency Visit Emergency Visit: No - New Patient This patient is new to me today: Yes Date on this admission: 10/05/16 - Critical Care Critical Care patient: No
--- NOTE | 2016-10-05 14:39 | CON.CARD ---
Consult Consult Specialty:: Cardiology Referred by:: Ayo Reason for Consultation:: preop. cad - History of Present Illness Chief Complaint: Right toe pain History of Present Illness: 71 year old male with a pmhx of htn, dm, cva, pvd, ?DVT on pmd note, and known CAD s/p CABG in 2014 at [facility] (follows with Dr. Anne at [facility]) who presents with elevated glucose levels and noted to have R toe ulcer with concern for osteomyelitis. Patient says that he has not had any cardiac issues since surgery in 2014. No chest pain, dyspnea, or palpitations. No pnd, orthopnea, or edema. No syncope or near syncope. Up until few weeks ago when started having issues with RLE he was able to walk long distances. 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: CVA Cardio/Vascular: Yes: CAD (-S/P CABG), HTN, Hyperlipdemia, Other (pad) Endocrine: Yes: Diabetes Mellitus (on insulin pump) - Past Surgical History Past Surgical History: Yes: Amputation (tip of right first toe), CABG (in 12/31) - Alcohol/Substance Use Hx Alcohol Use: No History of Substance Use: reports: None - Smoking History Smoking history: Former smoker Have you smoked in the past 12 months: No Aproximately how many cigarettes per day: 4 If you are a former smoker, when did you quit?: 25 YRS - Social History ADL: Independent History of Recent Travel: No Home Medications - Allergies Allergies/Adverse Reactions: Allergies Allergy/AdvReac Type Severity Reaction Status Date / Time Penicillins Allergy Swelling Verified 10/04/16 16:31 Sulfa (Sulfonamide Allergy Swelling Verified 10/04/16 16:31 Antibiotics) - Home Medications Home Medications: Ambulatory Orders Subcutaneous Insulin Pump [Insulin Pump] 1 each QID 07/21/11 Atorvastatin Ca [Lipitor] 40 mg PO DAILY 05/12/15 Metoprolol Tartrate [Lopressor -] 25 mg PO BID 06/23/15 Aspirin Coated [Ecotrin -] 81 mg PO DAILY 05/18/16 Clindamycin [Cleocin -] 300 mg PO TID 05/18/16 Bactroban Ointment (For Decolonization) - 1 applic TT BID 10/04/16 Clobetasol Prop 0.05% Top Cr 1 applic TP BID 10/04/16 Vital Signs: Vital Signs Temperature 97.9 F 10/05/16 13:29 Pulse Rate 64 10/05/16 13:29 Respiratory Rate 20 10/05/16 13:29 Blood Pressure 126/60 10/05/16 13:29 O2 Sat by Pulse Oximetry (%) 95 10/05/16 09:00 Constitutional: Yes: No Distress Neck: Yes: Supple Respiratory: Yes: CTA Bilaterally Gastrointestinal: Yes: Normal Bowel Sounds, Soft Cardiovascular: Yes: Regular Rate and Rhythm JVD: No Carotid Bruit: No Heart Sounds: Yes: S1, S2 Murmur: No: Systolic Murmur Extremities: Yes: Other (RLE skin color changes and with R toe ulcer) Edema: No - Other Data Labs, Other Data: CBC, BMP 10/05/16 05:35 10/05/16 05:35 INR, PTT INR 1.03 (0.82-1.09) 10/05/16 05:35 Imaging - Results Chest X-ray: Report Reviewed X-ray: Report Reviewed Problem List - Problems (1) Hx of CABG Code(s): Z95.1 - PRESENCE OF AORTOCORONARY BYPASS GRAFT Assessment/Plan 71 year old male with a pmhx of htn, dm, cva, pvd, ?DVT on pmd note, and known CAD s/p CABG in 2015 at [facility] (follows with Dr. Anne at [facility]) who presents with elevated glucose levels and noted to have R toe ulcer with concern for osteomyelitis. Patient says that he has not had any cardiac issues since surgery in 2015. No chest pain, dyspnea, or palpitations. No pnd, orthopnea, or edema. No syncope or near syncope. Up until few weeks ago when started having issues with RLE he was able to walk long distances. 1) Possible Right Toe Ostemyelitis -Abx as per ID Planned for possible amputation of toe. Patient's cardiac risk factors are htn, dm, cva, pvd, and known CAD s/p CABG in 2015. Patient denies any chest pain, dyspnea, or palpitations. No signs of chf on exam. Up until few weeks ago was walking long distances (until right foot issues). Vitals stable Would continue metoprolol periop EKG is unremarkable sinus rhythm at 72bpm with no ischemic changes. No cardiac contraindications to surgery noted. 2) CAD statin and metoprolol Aspirin on hold presumed for possible surgery and would restart when deemed possible as per surgery.
--- NOTE | 2016-10-05 16:33 | EKG ---
Test Reason : Blood Pressure : / mmHG Vent. Rate : 072 BPM Atrial Rate : 072 BPM P-R Int : 162 ms QRS Dur : 088 ms QT Int : 394 ms P-R-T Axes : 068 062 068 degrees QTc Int : 431 ms NORMAL SINUS RHYTHM NORMAL ECG WHEN COMPARED WITH ECG OF 07-APR-2016 09:32, NO SIGNIFICANT CHANGE WAS FOUND Confirmed by GIL GARZA MD ([id number]) on 10/05/2016 4:32:36 PM Referred By: Confirmed By:GIL GARZA MD
--- NOTE | 2016-10-05 16:35 | EKG ---
Test Reason : Blood Pressure : / mmHG Vent. Rate : 071 BPM Atrial Rate : 071 BPM P-R Int : 162 ms QRS Dur : 092 ms QT Int : 406 ms P-R-T Axes : 068 055 062 degrees QTc Int : 441 ms NORMAL SINUS RHYTHM NORMAL ECG WHEN COMPARED WITH ECG OF 04-OCT-2016 17:42, NO SIGNIFICANT CHANGE WAS FOUND Confirmed by GIL GARZA MD ([id number]) on 10/05/2016 4:35:14 PM Referred By: JAMARCUS PUGA Confirmed By:GIL GARZA MD
[2016-10-05] MEDS: ATORVASTATIN CA 40 MG TABLET (FP) PO SCH (21:33)
--- NOTE | 2016-10-05 22:33 | CONSULT ---
Consult - History of Present Illness History of Present Illness: 71 year old man with infected ulcer of right 1st toe treated by Dr. Gill. He has been followed in my office for bilateral venous stasis with compression and topical steroids. He has had a DVT of a right peroneal vein. He continues to have redness and pain in the left medial ankle. No fever. He is admitted for surgery on the toe. 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: CVA Cardio/Vascular: Yes: CAD (-S/P CABG), HTN, Hyperlipdemia, Other (pad) Endocrine: Yes: Diabetes Mellitus (on insulin pump) - Past Surgical History Past Surgical History: Yes: Amputation (tip of right first toe), CABG (in 12/31) - Alcohol/Substance Use Hx Alcohol Use: No History of Substance Use: reports: None - Smoking History Smoking history: Former smoker Have you smoked in the past 12 months: No Aproximately how many cigarettes per day: 4 If you are a former smoker, when did you quit?: 25 YRS - Social History ADL: Independent History of Recent Travel: No Home Medications - Allergies Allergies/Adverse Reactions: Allergies Allergy/AdvReac Type Severity Reaction Status Date / Time Penicillins Allergy Swelling Verified 10/04/16 16:31 Sulfa (Sulfonamide Allergy Swelling Verified 10/04/16 16:31 Antibiotics) - Home Medications Home Medications: Ambulatory Orders Subcutaneous Insulin Pump [Insulin Pump] 1 each MC QID 07/21/11 Atorvastatin Ca [Lipitor] 40 mg PO DAILY 05/12/15 Metoprolol Tartrate [Lopressor -] 25 mg PO BID 06/23/15 Aspirin Coated [Ecotrin -] 81 mg PO DAILY 05/18/16 Clindamycin [Cleocin -] 300 mg PO TID 05/18/16 Bactroban Ointment (For Decolonization) - 1 applic TT BID 10/04/16 Clobetasol Prop 0.05% Top Cr 1 applic TP BID 10/04/16 Physical Exam Vital Signs: Vital Signs Temperature 97.7 F 10/05/16 18:42 Pulse Rate 72 10/05/16 18:42 Respiratory Rate 20 10/05/16 18:42 Blood Pressure 138/60 10/05/16 18:42 O2 Sat by Pulse Oximetry (%) 95 10/05/16 20:05 Constitutional: Yes: No Distress Eyes: Yes: WNL HENT: Yes: WNL Neck: Yes: WNL, Supple Cardiovascular: Yes: Regular Rate and Rhythm Respiratory: Yes: Regular Gastrointestinal: Yes: Soft Extremities: Yes: Erythema (right medial malleolus) Edema: Yes Edema: LLE: 2+, RLE: 2+ Peripheral Pulses WNL: Yes ([place] posterior tibial bilaterally.) Labs: CBC, BMP 10/05/16 05:35 10/05/16 05:35 Problem List - Problems (1) Venous stasis Assessment/Plan: Chronic venous stasis due to underlying venous insufficiency. Currently his dermatitis is improving with topical steroids. I would continue this regimen. No contraindication to toe surgery but risk of wound infection may be elevated. Code(s): I87.8 - OTHER SPECIFIED DISORDERS OF VEINS
--- NOTE | 2016-10-05 23:43 | CONSULT ---
Consult Consult Specialty:: endocrine Referred by:: dr.annabi rivera Reason for Consultation:: iddm - History of Present Illness Chief Complaint: right toe infection and high sugars History of Present Illness: 71 year old male with significant medical hx of HTN, DM, CVA, CABG, PVD, and ? DVT who is presenting to the ED with elevated blood sugar measurements for the past two days. Patient reports having blood sugar measurement of 384 to as low as 87 denies nausea or vomiting,has had right toe infection with bone erosion, requiring amputation. 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: CVA Cardio/Vascular: Yes: CAD (-S/P CABG), HTN, Hyperlipdemia, Other (pad) Endocrine: Yes: Diabetes Mellitus (on insulin pump) - Past Surgical History Past Surgical History: Yes: Amputation (tip of right first toe), CABG (in 12/31) - Alcohol/Substance Use Hx Alcohol Use: No History of Substance Use: reports: None - Smoking History Smoking history: Former smoker Have you smoked in the past 12 months: No Aproximately how many cigarettes per day: 4 If you are a former smoker, when did you quit?: 25 YRS - Social History ADL: Independent History of Recent Travel: No Home Medications - Allergies Allergies/Adverse Reactions: Allergies Allergy/AdvReac Type Severity Reaction Status Date / Time Penicillins Allergy Swelling Verified 10/04/16 16:31 Sulfa (Sulfonamide Allergy Swelling Verified 10/04/16 16:31 Antibiotics) - Home Medications Home Medications: Ambulatory Orders Subcutaneous Insulin Pump [Insulin Pump] 1 each MC QID 07/21/11 Atorvastatin Ca [Lipitor] 40 mg PO DAILY 05/12/15 Metoprolol Tartrate [Lopressor -] 25 mg PO BID 06/23/15 Aspirin Coated [Ecotrin -] 81 mg PO DAILY 05/18/16 Clindamycin [Cleocin -] 300 mg PO TID 05/18/16 Bactroban Ointment (For Decolonization) - 1 applic TT BID 10/04/16 Clobetasol Prop 0.05% Top Cr 1 applic TP BID 10/04/16 Review of Systems - Review of Systems Constitutional: reports: Lethargy, Weakness Eyes: reports: Blurred Vision HENT: reports: No Symptoms Neck: reports: No Symptoms Cardiovascular: reports: Shortness of Breath Respiratory: reports: Exercise Intolerance, SOB on Exertion Gastrointestinal: reports: No Symptoms Genitourinary: reports: No Symptoms Breasts: reports: No Symptoms Reported Musculoskeletal: reports: Extremity Pain, Muscle Pain, Muscle Cramps Integumentary: reports: Wound Neurological: reports: Unsteady Gait, Weakness Endocrine: reports: Increased Thirst Physical Exam Vital Signs: Vital Signs Temperature 97.3 F L 10/05/16 22:00 Pulse Rate 63 10/05/16 22:00 Respiratory Rate 18 10/05/16 22:00 Blood Pressure 139/63 10/05/16 22:00 O2 Sat by Pulse Oximetry (%) 95 10/05/16 20:05 Constitutional: Yes: Anxious Eyes: Yes: EOM Intact HENT: Yes: Normocephalic Neck: Yes: Trachea Midline Respiratory: Yes: CTA Bilaterally Gastrointestinal: Yes: Normal Bowel Sounds ...Rectal Exam: Yes: Deferred Renal/: Yes: WNL Breast(s): Yes: WNL Musculoskeletal: Yes: Muscle Weakness Edema: No Wound/Incision: Yes: Dressing Dry and Intact Neurological: Yes: Alert, Oriented Psychiatric: Yes: Alert, Oriented Labs: CBC, BMP 10/05/16 05:35 10/05/16 05:35 Problem List - Problems (1) Hyperlipidemia Code(s): E78.5 - HYPERLIPIDEMIA, UNSPECIFIED Qualifiers: Hyperlipidemia type: unspecified hyperlipidemia (2) Hypertension Code(s): I10 - ESSENTIAL (PRIMARY) HYPERTENSION Qualifiers: Hypertension type: essential hypertension Qualified Code(s): I10 - Essential (primary) hypertension (3) Peripheral vascular disease Code(s): I73.9 - PERIPHERAL VASCULAR DISEASE, UNSPECIFIED (4) Toe osteomyelitis, right Code(s): M86.9 - OSTEOMYELITIS, UNSPECIFIED (5) Type 2 diabetes mellitus treated with insulin Code(s): E11.9 - TYPE 2 DIABETES MELLITUS WITHOUT COMPLICATIONS Z79.4 - FDC (CURRENT) USE OF INSULIN Assessment/Plan Current Active Problems Chest pain (Acute) Hyperlipidemia (Acute) Hypertension (Acute) Peripheral vascular disease (Acute) Pre-syncope (Acute) Toe osteomyelitis, right (Acute) Type 2 diabetes mellitus treated with insulin (Acute) Venous stasis (Acute) Abnormal Lab Results 10/05/16 10/05/16 10/05/16 05:35 05:35 08:00 Anion Gap 4 L BUN 22 H Random Glucose 111 H Hemoglobin A1c % 9.3 H C-Reactive Protein 1.9 H D Albumin 3.2 L Urine Glucose (UA) 1+ H Laboratory Results - last 24 hr 10/05/16 10/05/16 10/05/16 05:35 05:35 05:35 WBC 6.5 D RBC 4.22 Hgb 12.0 Hct 35.5 MCV 84.0 MCH 28.4 MCHC 33.8 RDW 13.0 Plt Count 225 D MPV 8.0 D Neutrophils % 63.6 Lymphocytes % 22.1 D Monocytes % 9.4 Eosinophils % 4.0 D Basophils % 0.9 INR 1.03 PTT (Actin FS) 30.1 Sodium 138 Potassium 4.4 Chloride 103 Carbon Dioxide 31 Anion Gap 4 L BUN 22 H Creatinine 1.1 Creat Clearance w eGFR > 60 POC Glucometer Random Glucose 111 H Hemoglobin A1c % Calcium 9.0 Total Bilirubin 0.8 D AST 18 ALT 17 Alkaline Phosphatase 81 C-Reactive Protein 1.9 H D Total Protein 6.8 Albumin 3.2 L Urine Color Urine Appearance Urine pH Ur Specific [place] Urine Protein Urine Glucose (UA) Urine Ketones Urine Blood Urine Nitrite Urine Bilirubin Urine Urobilinogen Ur Leukocyte Esterase 10/05/16 10/05/16 10/05/16 05:35 08:00 08:55 WBC RBC Hgb Hct MCV MCH MCHC RDW Plt Count MPV Neutrophils % Lymphocytes % Monocytes % Eosinophils % Basophils % INR PTT (Actin FS) Sodium Potassium Chloride Carbon Dioxide Anion Gap BUN Creatinine Creat Clearance w eGFR POC Glucometer Random Glucose Hemoglobin A1c % 9.3 H Calcium Total Bilirubin AST ALT Alkaline Phosphatase C-Reactive Protein Cancelled Total Protein Albumin Urine Color Ltyellow Urine Appearance Clear Urine pH 6.0 Ur Specific [place] 1.020 Urine Protein Negative Urine Glucose (UA) 1+ H Urine Ketones Negative Urine Blood Negative Urine Nitrite Negative Urine Bilirubin Negative Urine Urobilinogen Negative Ur Leukocyte Esterase Negative 10/05/16 21:30 WBC RBC Hgb Hct MCV MCH MCHC RDW Plt Count MPV Neutrophils % Lymphocytes % Monocytes % Eosinophils % Basophils % INR PTT (Actin FS) Sodium Potassium Chloride Carbon Dioxide Anion Gap BUN Creatinine Creat Clearance w eGFR POC Glucometer 125 Random Glucose Hemoglobin A1c % Calcium Total Bilirubin AST ALT Alkaline Phosphatase C-Reactive Protein Total Protein Albumin Urine Color Urine Appearance Urine pH Ur Specific [place] Urine Protein Urine Glucose (UA) Urine Ketones Urine Blood Urine Nitrite Urine Bilirubin Urine Urobilinogen Ur Leukocyte Esterase plan: bgm qid on novolog insulin using minimed basal rates 2.3 unit /hr will need tight controll for wound healing
--- NOTE | 2016-10-06 07:46 | PN ---
Physical Exam: SUBJECTIVE: Patient seen by me this AM - No complaints or overnight events. Denies fever, chills, cough, SOB, new rashes, leg pain, abdominal pain, CP, dysuria or diarrhea - Going for surgery at noon today for "Trisha procedure" due to Osteomyelitis of R 1st digit, per XR of foot - Afebrile, no WBC elevation or left shift per 10/05 labs Other updates: - UA negative - BCx's currently negative PM: - Wound culture pending - Gram stain negative for polys or organisms - Went for R big toe amputation. No major complications per OP note. OBJECTIVE: Vital Signs Period Temp Pulse Resp BP Sys/Holman Pulse Ox Last 24 Hr 97.3 F-98.1 F 63-72 18-20 126-139/60-65 95-95 GENERAL: Awake, alert, and fully oriented, in no acute distress. HEAD: Normal with no signs of trauma. EYES: sclera anicteric, conjunctiva clear. No lid lag. LUNGS: Breath sounds equal, clear to auscultation bilaterally. No wheezes, and no crackles. No accessory muscle use. HEART: Regular rate and rhythm, normal S1 and S2 without murmur, rub or gallop. ABDOMEN: Soft, nontender, not distended, normoactive bowel sounds, no guarding, no rebound, no masses. MUSCULOSKELETAL: No CVA tenderness. UPPER EXTREMITIES: 2+ pulses, warm, well-perfused. No cyanosis. No clubbing. Cap refill <2 seconds. No peripheral edema. LOWER EXTREMITIES: BL resolving statis dermatitis on anterior shins, worse on R. Diffuse erythema of 1st digit with draining ulcer on dorsal surface of PIP, now most distal portion of toe. No interval wallpaper remover steam past 24 hours. Amputation of DIP of R 1st and 2nd digit. 2+ pulses, warm, well-perfused. No calf tenderness. No peripheral edema. NEUROLOGICAL: Cranial nerves II-XII grossly intact. Normal speech. Gait not evaluated. PSYCHIATRIC: Cooperative. Good eye contact. Appropriate mood and affect. SKIN: Warm, dry, normal turgor. BL stasis dermatitis on anterior aspect of LE from midshin to ankle. Laboratory Results - last 24 hr CBC, BMP 10/05/16 05:35 10/05/16 05:35 10/05/16 10/05/16 10/05/16 05:35 05:35 05:35 WBC 6.5 D RBC 4.22 Hgb 12.0 Hct 35.5 MCV 84.0 MCH 28.4 MCHC 33.8 RDW 13.0 Plt Count 225 D MPV 8.0 D Neutrophils % 63.6 Lymphocytes % 22.1 D Monocytes % 9.4 Eosinophils % 4.0 D Basophils % 0.9 INR 1.03 PTT (Actin FS) 30.1 Sodium 138 Potassium 4.4 Chloride 103 Carbon Dioxide 31 Anion Gap 4 L BUN 22 H Creatinine 1.1 Creat Clearance w eGFR > 60 POC Glucometer Random Glucose 111 H Hemoglobin A1c % Calcium 9.0 Total Bilirubin 0.8 D AST 18 ALT 17 Alkaline Phosphatase 81 C-Reactive Protein 1.9 H D Total Protein 6.8 Albumin 3.2 L Urine Color Urine Appearance Urine pH Ur Specific [place] Urine Protein Urine Glucose (UA) Urine Ketones Urine Blood Urine Nitrite Urine Bilirubin Urine Urobilinogen Ur Leukocyte Esterase 10/05/16 10/05/16 10/05/16 05:35 08:00 08:55 WBC RBC Hgb Hct MCV MCH MCHC RDW Plt Count MPV Neutrophils % Lymphocytes % Monocytes % Eosinophils % Basophils % INR PTT (Actin FS) Sodium Potassium Chloride Carbon Dioxide Anion Gap BUN Creatinine Creat Clearance w eGFR POC Glucometer Random Glucose Hemoglobin A1c % 9.3 H Calcium Total Bilirubin AST ALT Alkaline Phosphatase C-Reactive Protein Cancelled Total Protein Albumin Urine Color Ltyellow Urine Appearance Clear Urine pH 6.0 Ur Specific [place] 1.020 Urine Protein Negative Urine Glucose (UA) 1+ H Urine Ketones Negative Urine Blood Negative Urine Nitrite Negative Urine Bilirubin Negative Urine Urobilinogen Negative Ur Leukocyte Esterase Negative 10/05/16 21:30 WBC RBC Hgb Hct MCV MCH MCHC RDW Plt Count MPV Neutrophils % Lymphocytes % Monocytes % Eosinophils % Basophils % INR PTT (Actin FS) Sodium Potassium Chloride Carbon Dioxide Anion Gap BUN Creatinine Creat Clearance w eGFR POC Glucometer 125 Random Glucose Hemoglobin A1c % Calcium Total Bilirubin AST ALT Alkaline Phosphatase C-Reactive Protein Total Protein Albumin Urine Color Urine Appearance Urine pH Ur Specific [place] Urine Protein Urine Glucose (UA) Urine Ketones Urine Blood Urine Nitrite Urine Bilirubin Urine Urobilinogen Ur Leukocyte Esterase Microbiology 10/04/16 18:16 Blood - Peripheral Venous Blood Culture - Preliminary NO GROWTH OBTAINED AFTER 24 HOURS, INCUBATION TO CONTINUE FOR 4 DAYS. 10/04/16 18:16 Blood - Peripheral Venous Blood Culture - Preliminary NO GROWTH OBTAINED AFTER 24 HOURS, INCUBATION TO CONTINUE FOR 4 DAYS. Active Medications Generic Name Dose Route Start Last Admin Trade Name Freq PRN Reason Stop Dose Admin Acetaminophen 650 mg 10/04/16 19:47 Tylenol - PO Q4H PRN FEVER OR PAIN Atorvastatin Calcium 40 mg 10/04/16 22:00 10/05/16 21:33 Lipitor - PO 40 mg HS RIO Administration Heparin Sodium (Porcine) 5,000 unit 10/04/16 22:00 10/05/16 21:32 Heparin - SQ 5,000 unit BID RIO Administration Metoprolol Tartrate 25 mg 10/04/16 22:00 10/05/16 21:33 Lopressor - PO 25 mg BID RIO Administration ASSESSMENT/PLAN: Assessment: 71 yo man w/ pmh of DM2, HTN, and PVD who initially presented to ED due to hyperglycemia, currently w/ osteomyelitis of R big toe and resolving rash on R LE. LE extremity rash likely statis dermatitis due to PVD, no evidence of cellulitis or active infectious process. R 1st digit with dorsal ulcer, mild erythema and drainage. Imaging suggestive of osteomyelitis. Pt non- toxic, afebrile, with no WBC elevation and no infectious symptoms. Went for R toe amputation today, uneventful post-op course. Wound stain neg, culture pending. Active problem list: Osteomyelitis of distal R 1st digit PVD w/ statis dermatitis of LEs DM2 Hyperglycemia Plan: #Osteomyelitis - Received R toe amputation for confirmed osteomyelitis per imaging - Outpt management w/ hard candy spinner, Dr. 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 Gastelum Problem List - Problems (1) Toe osteomyelitis, right Code(s): M86.9 - OSTEOMYELITIS, UNSPECIFIED (2) Type 2 diabetes mellitus treated with insulin Code(s): E11.9 - TYPE 2 DIABETES MELLITUS WITHOUT COMPLICATIONS Z79.4 - LONGTERM (CURRENT) USE OF INSULIN (3) Peripheral vascular disease Code(s): I73.9 - PERIPHERAL VASCULAR DISEASE, UNSPECIFIED Visit type - Emergency Visit Emergency Visit: No - New Patient This patient is new to me today: No - Critical Care Critical Care patient: No
--- NOTE | 2016-10-06 08:51 | PN ---
Progress Note, Physician History of Present Illness: NO COMPLAINTS - Current Medication List Current Medications: Active Medications Acetaminophen (Tylenol -) 650 mg PO Q4H PRN PRN Reason: FEVER OR PAIN Atorvastatin Calcium (Lipitor -) 40 mg PO HS [facility] Last Admin: 10/05/16 21:33 Dose: 40 mg Heparin Sodium (Porcine) (Heparin -) 5,000 unit SQ BID [facility] Last Admin: 10/05/16 21:32 Dose: 5,000 unit Metoprolol Tartrate (Lopressor -) 25 mg PO BID [facility] Last Admin: 10/05/16 21:33 Dose: 25 mg - Objective Vital Signs: Vital Signs Temperature 97.5 F L 10/06/16 06:00 Pulse Rate 60 10/06/16 06:00 Respiratory Rate 18 10/06/16 06:00 Blood Pressure 135/67 10/06/16 06:00 O2 Sat by Pulse Oximetry (%) 95 10/05/16 20:05 Cardiovascular: Yes: Regular Rate and Rhythm Respiratory: Yes: Regular, CTA Bilaterally Gastrointestinal: Yes: Normal Bowel Sounds, Soft Labs: CBC, BMP 10/05/16 05:35 10/05/16 05:35 INR, PTT INR 1.03 (0.82-1.09) 10/05/16 05:35 Problem List - Problems (1) Toe osteomyelitis, right Assessment/Plan: NO ABX PER ID XRAY RESULTS--MRI PENDING PODIATRY VASCULAR NOTED Code(s): M86.9 - OSTEOMYELITIS, UNSPECIFIED (2) Type 2 diabetes mellitus treated with insulin Assessment/Plan: BGM INSULIN ENDO Code(s): E11.9 - TYPE 2 DIABETES MELLITUS WITHOUT COMPLICATIONS Z79.4 - TIG WELDER (CURRENT) USE OF INSULIN (3) Arteriosclerotic heart disease (ASHD) Assessment/Plan: CARDIO NOTED EKG NSR Code(s): I25.10 - ATHSCL HEART DISEASE OF [place] CORONARY ARTERY W/O ANG PCTRS (4) Hx of CABG Assessment/Plan: ABOVE Code(s): Z95.1 - PRESENCE OF AORTOCORONARY BYPASS GRAFT
[2016-10-06] MEDS: HEPARIN NA (PORCINE) 5,000 UNITS/ML 1ML VIAL SQ SCH ×2 (10:12→22:17)
[2016-10-06] MEDS: METOPROLOL TARTRATE 25 MG TABLET (FP) PO SCH ×2 (10:13→22:17)
[2016-10-06] MEDS ORDERED: LIDOCAINE 1%/EPI 1:100000 (50 ML MULTI DOSE VIAL) ONE (11:19)
[2016-10-06] MEDS ORDERED: BUPIVACAINE HCL/PF 0.5% (5MG/ML) 10 ML VIAL ONE (11:20)
[2016-10-06] MEDS ORDERED: MIDAZOLAM HCL 2 MG/2 ML SINGLE DOSE VIAL ONE (12:09)
[2016-10-06] MEDS ORDERED: BUPIVACAINE HCL/PF 0.5% (5MG/ML) 10 ML VIAL IJ ONE ×2 (12:40)
[2016-10-06] MEDS ORDERED: LIDOCAINE 1%/EPI 1:100000 (20 ML MULTI DOSE VIAL) INF ONE ×3 (12:40)
[2016-10-06] MEDS ORDERED: PROPOFOL 20 ML ONE (12:51)
[2016-10-06] MEDS ORDERED: ONDANSETRON 4 MG/2 ML VIAL IVPUSH PRN (13:38)
[2016-10-06] MEDS ORDERED: LACTATED RINGERS SOLUTION 1,000 ML IV SCH (13:45)
--- NOTE | 2016-10-06 13:53 | CONSULT ---
Consult Consult Specialty:: Podiatry, David Gill DPM Reason for Consultation:: osteomyelitis of the right hallux - History of Present Illness Chief Complaint: chronic ulceration of the right hallux with bone infection. History of Present Illness: Patient suffered from chronic ulceration inferior to the head of the proximal phalanx of the right hallux for several months. The first metatarsal phalangeal joint is arthritic and stiff and would not dorsiflex. As a result excessive weight bearing pressure was exerted at the ulceration site. Padding and wound care failed to heal the lesion and eventually the distal phalanx became infected. bone erosion on x-ray was observed last week and MRI confirms the diagnosis of distal phalanx osteomyelitis. 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 Cardio/Vascular: Yes: CAD (-S/P CABG), HTN, Hyperlipdemia, Other (pad) Endocrine: Yes: Diabetes Mellitus (on insulin pump) - Past Surgical History Past Surgical History: Yes: Amputation (tip of right first toe), CABG (in 12/31) - Alcohol/Substance Use Hx Alcohol Use: No History of Substance Use: reports: None - Smoking History Smoking history: Former smoker Have you smoked in the past 12 months: No Aproximately how many cigarettes per day: 4 If you are a former smoker, when did you quit?: 25 YRS - Social History ADL: Independent History of Recent Travel: No Home Medications - Allergies Allergies/Adverse Reactions: Allergies Allergy/AdvReac Type Severity Reaction Status Date / Time Penicillins Allergy Swelling Verified 10/04/16 16:31 Sulfa (Sulfonamide Allergy Swelling Verified 10/04/16 16:31 Antibiotics) - Home Medications Home Medications: Ambulatory Orders Subcutaneous Insulin Pump [Insulin Pump] 1 each MC QID 07/21/11 Atorvastatin Ca [Lipitor] 40 mg PO DAILY 05/12/15 Metoprolol Tartrate [Lopressor -] 25 mg PO BID 06/23/15 Aspirin Coated [Ecotrin -] 81 mg PO DAILY 05/18/16 Clindamycin [Cleocin -] 300 mg PO TID 05/18/16 Bactroban Ointment (For Decolonization) - 1 applic TT BID 10/04/16 Clobetasol Prop 0.05% Top Cr 1 applic TP BID 10/04/16 Physical Exam Vital Signs: Vital Signs Temperature 98.2 F 10/06/16 10:00 Pulse Rate 60 10/06/16 10:00 Respiratory Rate 20 10/06/16 10:00 Blood Pressure 133/60 10/06/16 10:00 O2 Sat by Pulse Oximetry (%) 95 10/05/16 20:05 Edema: No (edema is absent for both ) Wound/Incision: Yes: Other (right plantar skin wound is covered with dry escar.) Labs: CBC, BMP 10/05/16 05:35 10/05/16 05:35 Imaging - Results MRI: Report Reviewed (osteomyelitis present proximal phalanx of the right hallux.) Assessment/Plan It has been agreed that amputation of the right hallux with complete resection of the infected proximal phalanx and flap closure would be the most expeditious course of action. Plan right hallux amputation following medical clearance.
[2016-10-06] MEDS ORDERED: SUBCUTANEOUS INSULIN PUMP MC SCH (18:00)
[2016-10-06] MEDS: ATORVASTATIN CA 40 MG TABLET (FP) PO SCH (22:17)
[2016-10-07] MEDS: HEPARIN NA (PORCINE) 5,000 UNITS/ML 1ML VIAL SQ SCH ×2 (10:09→21:20)
[2016-10-07] MEDS: METOPROLOL TARTRATE 25 MG TABLET (FP) PO SCH ×2 (10:09→21:20)
--- NOTE | 2016-10-07 10:11 | OP ---
DATE OF OPERATION: 10/06/2016 PREOPERATIVE DIAGNOSIS: Osteomyelitis of the right hallux. POSTOPERATIVE DIAGNOSIS: Osteomyelitis of the right hallux. PROCEDURE: Amputation of the right hallux with primary flap closure. DESCRIPTION OF PROCEDURE: Under fractional anesthesia and a surgical scrub with Betadine scrub and solution x2, the patient was draped using sterile technique. Inspection of the right hallux showed a dry eschar inferior to the distal aspect of the distal phalanx in the right hallux. It should also be noted that the first metatarsophalangeal joint was rigid and unable to be dorsiflexed, and it should also be noted that on manipulation of the distal aspect of the right hallux, crepitus was noted as in the feeling of pathologic fractures beneath. Using a gentian stuart pen, a proposed surgical incision was drawn out on the hallux, saving the dorsal aspect of the skin to be used as a flap for closure and removing the plantar aspect of the skin where the ulceration was located. Using a number 15 surgical blade, a curvilinear incision was made to bone following the preplanned gentian stuart incision line. The the dorsal flap was lifted from the distal aspect of the hallux and reflected backwards. The first metatarsophalangeal joint was disarticulated using sharp dissection, and then, it was removed along with the plantar soft tissue mass flap from the foot. The wound was inspected. No sign of sinus was noted. There was no purulence coming from the remaining wound or from the resected hallux. There was necrotic tissue noted in the distal aspect of the proximal phalanx and pathologic fracture. The wound was copiously irrigated with sterile saline, and then, the distal metatarsal was cultured for signs of bacterial contamination. The distal aspect of the proximal phalanx of the hallux was also cultured, taking a small piece of bone and putting it into a Culturette. The remaining amputated tissue was sent for tissue pathology. Following copious irrigation of the remaining wound, a flap of tissue was formed from the dorsal skin, and then, this flap was approximated over the amputation site and loosely sutured in place with 4-0 Prolene simple interrupted sutures. A dry sterile dressing was applied to the right foot. The patient tolerated the surgical procedure well and left the operating room, stable, alert, awake, and in no pain. JATINDER OLVERA/[id number]
--- NOTE | 2016-10-07 10:37 | PN ---
Progress Note, Physician - Current Medication List Current Medications: Active Medications Acetaminophen (Tylenol -) 650 mg PO Q4H PRN PRN Reason: FEVER OR PAIN Atorvastatin Calcium (Lipitor -) 40 mg PO HS [facility] Last Admin: 10/06/16 22:17 Dose: 40 mg Heparin Sodium (Porcine) (Heparin -) 5,000 unit SQ BID [facility] Last Admin: 10/07/16 10:09 Dose: 5,000 unit Metoprolol Tartrate (Lopressor -) 25 mg PO BID [facility] Last Admin: 10/07/16 10:09 Dose: 25 mg Non-Formulary Medication (Clobetasol Prop 0.05% Top Cr) 1 applic TP BID [facility] - Objective Vital Signs: Vital Signs Temperature 96.0 F L 10/07/16 06:00 Pulse Rate 60 10/07/16 10:02 Respiratory Rate 20 10/07/16 10:02 Blood Pressure 140/60 10/07/16 10:02 O2 Sat by Pulse Oximetry (%) 97 10/06/16 21:00 Cardiovascular: Yes: Regular Rate and Rhythm Respiratory: Yes: Regular, CTA Bilaterally Gastrointestinal: Yes: Normal Bowel Sounds, Soft Labs: CBC, BMP 10/05/16 05:35 10/05/16 05:35 INR, PTT INR 1.03 (0.82-1.09) 10/05/16 05:35 Problem List - Problems (1) Toe osteomyelitis, right Assessment/Plan: NO ABX PER ID XRAY RESULTS--MRI NOTED PODIATRY --S/P AMPUTATION VASCULAR NOTED Code(s): M86.9 - OSTEOMYELITIS, UNSPECIFIED (2) Type 2 diabetes mellitus treated with insulin Assessment/Plan: BGM INSULIN ENDO Code(s): E11.9 - TYPE 2 DIABETES MELLITUS WITHOUT COMPLICATIONS Z79.4 - GOLD BUYER (CURRENT) USE OF INSULIN (3) Arteriosclerotic heart disease (ASHD) Assessment/Plan: CARDIO NOTED EKG NSR Code(s): I25.10 - ATHSCL HEART DISEASE OF [place] CORONARY ARTERY W/O ANG PCTRS (4) Hx of CABG Assessment/Plan: ABOVE Code(s): Z95.1 - PRESENCE OF AORTOCORONARY BYPASS GRAFT
[2016-10-07] MEDS: CLOBETASOL PROP 0.05% TP SCH (21:20)
[2016-10-07] MEDS: ATORVASTATIN CA 40 MG TABLET (FP) PO SCH (21:20)
[2016-10-08] MEDS: HEPARIN NA (PORCINE) 5,000 UNITS/ML 1ML VIAL SQ SCH ×2 (11:09→22:14)
[2016-10-08] MEDS: METOPROLOL TARTRATE 25 MG TABLET (FP) PO SCH ×2 (11:09→22:14)
[2016-10-08] MEDS: CLOBETASOL PROP 0.05% TP SCH ×4 (11:12→22:14)
--- NOTE | 2016-10-08 11:14 | PN ---
Progress Note, Physician History of Present Illness: NO COMPLAINTS - Current Medication List Current Medications: Active Medications Acetaminophen (Tylenol -) 650 mg PO Q4H PRN PRN Reason: FEVER OR PAIN Atorvastatin Calcium (Lipitor -) 40 mg PO HS [facility] Last Admin: 10/07/16 21:20 Dose: 40 mg Heparin Sodium (Porcine) (Heparin -) 5,000 unit SQ BID [facility] Last Admin: 10/07/16 21:20 Dose: 5,000 unit Metoprolol Tartrate (Lopressor -) 25 mg PO BID [facility] Last Admin: 10/07/16 21:20 Dose: 25 mg Non-Formulary Medication (Clobetasol Prop 0.05% Top Cr) 1 applic TP BID [facility] Last Admin: 10/07/16 21:20 Dose: 1 applic - Objective Vital Signs: Vital Signs Temperature 97.9 F 10/08/16 06:00 Pulse Rate 63 10/08/16 11:03 Respiratory Rate 20 10/08/16 11:03 Blood Pressure 125/58 10/08/16 11:03 O2 Sat by Pulse Oximetry (%) 96 10/07/16 21:00 Cardiovascular: Yes: Regular Rate and Rhythm Respiratory: Yes: Regular, CTA Bilaterally Gastrointestinal: Yes: Normal Bowel Sounds, Soft Wound/Incision: Yes: Dressing Dry and Intact Labs: CBC, BMP 10/05/16 05:35 10/05/16 05:35 INR, PTT INR 1.03 (0.82-1.09) 10/05/16 05:35 Problem List - Problems (1) Toe osteomyelitis, right Assessment/Plan: NO ABX PER ID XRAY RESULTS--MRI NOTED PODIATRY --S/P AMPUTATION---PODIATRYFOLLOW UP VASCULAR NOTED Code(s): M86.9 - OSTEOMYELITIS, UNSPECIFIED (2) Type 2 diabetes mellitus treated with insulin Assessment/Plan: BGM INSULIN ENDO Code(s): E11.9 - TYPE 2 DIABETES MELLITUS WITHOUT COMPLICATIONS Z79.4 - 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
[2016-10-08] MEDS: ATORVASTATIN CA 40 MG TABLET (FP) PO SCH (22:14)
[2016-10-09] MEDS ORDERED: PT OWN MED DRAWER 7, Y5N ONE ×2 (06:49→10:09)
--- NOTE | 2016-10-09 08:23 | DS ---
Physical Examination Vital Signs: Vital Signs Temperature 98 F 10/09/16 06:00 Pulse Rate 66 10/09/16 06:00 Respiratory Rate 18 10/09/16 06:00 Blood Pressure 125/62 10/09/16 06:00 O2 Sat by Pulse Oximetry (%) 95 10/08/16 21:00 Cardiovascular: Yes: Regular Rate and Rhythm Respiratory: Yes: Regular, CTA Bilaterally Gastrointestinal: Yes: Normal Bowel Sounds, Soft Wound/Incision: Yes: Dressing Dry and Intact Labs: CBC, BMP 10/05/16 05:35 10/05/16 05:35 Discharge Summary Reason For Visit: OSTEOMYELITIS OF TOE OF RIGHT FOOT Current Active Problems Chest pain (Acute) Hyperlipidemia (Acute) Hypertension (Acute) Peripheral vascular disease (Acute) Pre-syncope (Acute) Toe osteomyelitis, right (Acute) Type 2 diabetes mellitus treated with insulin (Acute) Venous stasis (Acute) Hospital Course: 71 year old male with significant medical hx of HTN, DM, CVA, CABG, PVD, and ? DVT who is presenting to the ED with elevated blood sugar measurements for the past two days. Patient reports having blood sugar measurement of 384 several hours after having a bowl of cereal with a banana this morning. He states that he the same thing happened to him yesterday. Patient notes that he is on an insulin pump and that his sugar read 87 in the ED. Patient began treatment with dalvance ten days ago when he was last seen in the ED for right leg cellulitis. He notes that he recently began clindamycin again in addition for treatment. He reports improvement since his last visit. The patient is followed by Dr. Gill for podiatry and today the patient was x- rayed which revealed erosion of the right toe and he is scheduled for amputation of the toe this Sunday. 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: CVA Cardiovascular: Yes: CAD (-S/P CABG), HTN, Hyperlipdemia, Other (pad) Endocrine: Yes: Diabetes Mellitus (on insulin pump) - Past Surgical History Past Surgical History: Yes: Amputation (tip of right first toe), CABG (in 12/31) - Smoking History Smoking history: Former smoker Have you smoked in the past 12 months: No - Problems (1) Toe osteomyelitis, right Assessment/Plan: NO ABX PER ID XRAY RESULTS--MRI NOTED PODIATRY --S/P AMPUTATION---PODIATRY FOLLOW UP--DC PLANNING DRESSING CHANGES PER PODIATRY PT VASCULAR NOTED Code(s): M86.9 - OSTEOMYELITIS, UNSPECIFIED (2) Type 2 diabetes mellitus treated with insulin Assessment/Plan: BGM INSULIN ENDO Code(s): E11.9 - TYPE 2 DIABETES MELLITUS WITHOUT COMPLICATIONS Z79.4 - MCC (CURRENT) USE OF INSULIN (3) Arteriosclerotic heart disease (ASHD) Assessment/Plan: CARDIO NOTED EKG NSR Code(s): I25.10 - ATHSCL HEART DISEASE OF [place] CORONARY ARTERY W/O ANG PCTRS (4) Hx of CABG Assessment/Plan: ABOVE Code(s): Z95.1 - PRESENCE OF AORTOCORONARY BYPASS GRAFT - Home Medications Comprehensive Discharge Medication List: Ambulatory Orders Subcutaneous Insulin Pump [Insulin Pump] 1 each MC QID 07/21/11 Atorvastatin Ca [Lipitor] 40 mg PO DAILY 05/12/15 Metoprolol Tartrate [Lopressor -] 25 mg PO BID 06/23/15 Aspirin Coated [Ecotrin -] 81 mg PO DAILY 05/18/16 Clobetasol Prop 0.05% Top Cr 1 applic TP BID 10/04/16
[2016-10-09] MEDS: METOPROLOL TARTRATE 25 MG TABLET (FP) PO SCH (09:56)
[2016-10-09] MEDS: HEPARIN NA (PORCINE) 5,000 UNITS/ML 1ML VIAL SQ SCH (09:57)
[2016-10-09] MEDS: CLOBETASOL PROP 0.05% TP SCH (10:20)
[2016-10-09] MEDS ORDERED: LEVOFLOXACIN 750 MG TABLET PO ONE (14:28)
[2016-10-09] MEDS ORDERED: VANCOMYCIN 1,500 MG in DEXTROSE 5%-WATER - 500 ML IVPB ONE (14:30)
--- NOTE | 2016-10-09 14:46 | PN ---
Physical Exam: SUBJECTIVE: Patient seen by me this AM - Pt to be discharged today. Post-op course unremarkable. - Intra-op wound culture positive for Staph Aureus - Pt doing well with no complaints. No overnight events. - Afebrile, w/ no white count OBJECTIVE: Vital Signs Period Temp Pulse Resp BP Sys/Holman Pulse Ox Last 24 Hr 97.3 F-98.2 F 60-76 18-20 117-139/53-71 95-95 GENERAL: Awake, alert, and fully oriented, in no acute distress. HEAD: Normal with no signs of trauma. EYES: sclera anicteric, conjunctiva clear. No lid lag. LUNGS: Breath sounds equal, clear to auscultation bilaterally. No wheezes, and no crackles. No accessory muscle use. HEART: Regular rate and rhythm, normal S1 and S2 without murmur, rub or gallop. ABDOMEN: Soft, nontender, not distended, normoactive bowel sounds, no guarding, no rebound, no masses. MUSCULOSKELETAL: No CVA tenderness. UPPER EXTREMITIES: 2+ pulses, warm, well-perfused. No cyanosis. No clubbing. Cap refill <2 seconds. No peripheral edema. LOWER EXTREMITIES: BL resolving statis dermatitis on anterior shins, worse on R. Diffuse erythema of 1st digit with draining ulcer on dorsal surface of PIP, now most distal portion of toe. No interval change management facilitator past 24 hours. Amputation of DIP of R 1st and 2nd digit. 2+ pulses, warm, well-perfused. No calf tenderness. No peripheral edema. NEUROLOGICAL: Cranial nerves II-XII grossly intact. Normal speech. Gait not evaluated. PSYCHIATRIC: Cooperative. Good eye contact. Appropriate mood and affect. SKIN: Warm, dry, normal turgor. BL stasis dermatitis on anterior aspect of LE from midshin to ankle. Laboratory Results - last 24 hr CBC, BMP 10/05/16 05:35 10/05/16 05:35 10/08/16 10/09/16 22:20 06:35 POC Glucometer 151 117 Microbiology 10/06/16 13:00 Bone Gram Stain - Final 10/06/16 13:00 Bone Tissue Culture - Preliminary Pending Organism Pending Organism#2 10/06/16 13:00 Bone Anaerobic Culture - Final NO ANAEROBES WERE ISOLATED 10/06/16 13:00 Toe - Right Hallux Gram Stain - Final 10/06/16 13:00 Toe - Right Hallux Wound Culture - Final Staphylococcus Aureus 10/04/16 18:16 Blood - Peripheral Venous Blood Culture - Preliminary NO GROWTH OBTAINED AFTER 96 HOURS, INCUBATION TO CONTINUE FOR 1 DAYS. 10/04/16 18:16 Blood - Peripheral Venous Blood Culture - Preliminary NO GROWTH OBTAINED AFTER 96 HOURS, INCUBATION TO CONTINUE FOR 1 DAYS. Active Medications Generic Name Dose Route Start Last Admin Trade Name Freq PRN Reason Stop Dose Admin Acetaminophen 650 mg 10/04/16 19:47 Tylenol - PO Q4H PRN FEVER OR PAIN Atorvastatin Calcium 40 mg 10/04/16 22:00 10/08/16 22:14 Lipitor - PO 40 mg HS RIO Administration Heparin Sodium (Porcine) 5,000 unit 10/04/16 22:00 10/09/16 09:57 Heparin - SQ 5,000 unit BID RIO Administration Vancomycin HCl 1,500 mg/ 500 mls @ 250 mls/hr 10/09/16 14:30 Dextrose IVPB 10/09/16 16:29 ONCE ONE Protocol Metoprolol Tartrate 25 mg 10/04/16 22:00 10/09/16 09:56 Lopressor - PO 25 mg BID RIO Administration Non-Formulary Medication 1 applic 10/06/16 22:00 10/09/16 10:20 Clobetasol Prop 0.05% Top Cr TP 1 applic BID RIO Administration ASSESSMENT/PLAN: Assessment: 71 yo man w/ pmh of DM2, HTN, and PVD who initially presented to ED due to hyperglycemia, currently w/ osteomyelitis of R big toe and resolving rash on R LE. LE extremity rash likely statis dermatitis due to PVD, no evidence of cellulitis or active infectious process. Pt now s/p amputation of distal 1st digit, w/ unremarkable post-op course. Wound cultures + for Staph Aureus. Pt continues to be non-toxic, afebrile, with no WBC elevation and no infectious symptoms. Pt will receive one dose vanco IV and d/c w/ 7 day course of levaquin due to penicillin allergy. Active problem list: Osteomyelitis of distal R 1st digit PVD w/ statis dermatitis of LEs DM2 Hyperglycemia Plan: #Osteomyelitis - Received R toe amputation for confirmed osteomyelitis per imaging - Wound culture + for MRSA - Single dose Vanc 1.5 g IV today. D/c on Levaquin 500mg PO daily for 7 days - Outpt management w/ silver holloware assembler, Dr. Gill #Lower extremity rash - Likely statis dermatitis - Will not require abx - Continue topical w/ bactroban/clobetasol - f/u w/ outpt retail solar advisor - Monitor for an infectious sxs's Naibl Marsh MD, PGY1 Plan discussed with attendings, Dr. Gastelum and Dr. 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
--- NOTE | 2016-10-09 14:59 | PN ---
Teaching Attending Note Name of Resident: Nabil Marsh ATTENDING PHYSICIAN STATEMENT I saw and evaluated the patient. I reviewed the resident's note and discussed the case with the resident. I agree with the resident's findings and plan as documented. SUBJECTIVE: doing well OBJECTIVE: Vital Signs Period Temp Pulse Resp BP Sys/Holman Pulse Ox Last 24 Hr 97.7 F-98.2 F 64-76 18-20 117-139/61-71 95-95 cor-rrr lungs clear foot bandaged CBC, BMP 10/05/16 05:35 10/05/16 05:35 Microbiology 10/06/16 13:00 Bone Gram Stain - Final 10/06/16 13:00 Bone Tissue Culture - Preliminary Pending Organism Pending Organism#2 10/06/16 13:00 Bone Anaerobic Culture - Final NO ANAEROBES WERE ISOLATED 10/06/16 13:00 Toe - Right Hallux Gram Stain - Final 10/06/16 13:00 Toe - Right Hallux Wound Culture - Final Staphylococcus Aureus 10/04/16 18:16 Blood - Peripheral Venous Blood Culture - Preliminary NO GROWTH OBTAINED AFTER 96 HOURS, INCUBATION TO CONTINUE FOR 1 DAYS. 10/04/16 18:16 Blood - Peripheral Venous Blood Culture - Preliminary NO GROWTH OBTAINED AFTER 96 HOURS, INCUBATION TO CONTINUE FOR 1 DAYS. ASSESSMENT AND PLAN: s/p amputation- D/W Dr Laws who originally saw patient and who spoke with Dr Gill today-no plans for correction antibiotics he has pen allergy (blows up) and sulfa allergy plan for po antibiotics- levaquin due to above allergies for one week oral levaquin 500 daily for 7 days with close outpt podiatric f/u vancomycin iv today awaiting podiatry f/u
[2016-10-09 15:28] VITALS: TEMP 98.1
--- NOTE | 2016-10-09 16:02 | PATH ---
Surgical Pathology Report Patient Name: [facility]. Rec. #: [id number] /Age/Gender: 1945 (Age: 71) / M Account: [id number] Location: [address] [place] [address]/[facility] Taken: 10/06/2016 Received: 10/06/2016 Reported: 10/09/2016 Physicians: David Gill M.D. Specimen(s) Received RIGHT BIG TOE WITH TISSUE AND SKIN Clinical History Osteomyelitis right foot big toe Final Diagnosis SKIN AND SOFT TISSUE WITH BONE, RIGHT GREAT TOE, EXCISION: SKIN WITH ULCERATION, NECROSIS OF UNDERLYING SOFT TISSUE. BONE WITH ACUTE OSTEOMYELITIS PRESENT. Comment: The specimen was received in multiple pieces, and evaluation of the margins is not possible. The recommend correlation with clinical findings and followup as clinically indicated. Electronically Signed Mahesh Escobedo M.D. Gross Description Received in formalin labeled "right big toe with tissue and skin," is a 3.2 x 3.0 x 1.6 cm garcia portion of skin and underlying soft tissue. The epidermal surface displays a 2.2 x 1.9 cm ulcerated lesion at 0.8 cm from the closest skin and soft tissue margin. Separately received within the same container is a 3.5 x 2.4 x 2.4 cm garcia, irregular portion of bone. The bone displays smooth articular cartilage at one end. The opposing end displays garcia, trabecular, jagged bone. Also received within the same container is a 2.5 x 1.5 x 0.5 cm undesignated portion of soft tissue. Clinical Psychologist Licensed sections are submitted in 5 cassettes as follows: 1-skin lesion with underlying soft tissue; 2-skin and soft tissue margin; 3-bone margin with smooth articular cartilage, following decalcification; 4-bone margin with jagged trabecular bone, following decalcification; 5-separately received portion of soft tissue. /10/06/201610/06/2016
[2016-10-09] MEDS ORDERED: CEPHALEXIN MONOHYDRATE 500 MG CAPSULE (UD) PO SCH (18:00)
--- NOTE | 2016-10-09 19:49 | CONSULT ---
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 Cardio/Vascular: Yes: CAD (-S/P CABG), HTN, Hyperlipdemia, Other (pad) Endocrine: Yes: Diabetes Mellitus (on insulin pump) - Past Surgical History Past Surgical History: Yes: Amputation (tip of right first toe), CABG (in 12/31) - Alcohol/Substance Use Hx Alcohol Use: No History of Substance Use: reports: None - Smoking History Smoking history: Former smoker Have you smoked in the past 12 months: No Aproximately how many cigarettes per day: 4 If you are a former smoker, when did you quit?: 25 YRS - Social History ADL: Independent History of Recent Travel: No Home Medications - Allergies Allergies/Adverse Reactions: Allergies Allergy/AdvReac Type Severity Reaction Status Date / Time Penicillins Allergy Swelling Verified 10/04/16 16:31 Sulfa (Sulfonamide Allergy Swelling Verified 10/04/16 16:31 Antibiotics) - Home Medications Home Medications: Ambulatory Orders Subcutaneous Insulin Pump [Insulin Pump] 1 each MC QID 07/21/11 Atorvastatin Ca [Lipitor] 40 mg PO DAILY 05/12/15 Metoprolol Tartrate [Lopressor -] 25 mg PO BID 06/23/15 Aspirin Coated [Ecotrin -] 81 mg PO DAILY 05/18/16 Clobetasol Prop 0.05% Top Cr 1 applic TP BID 10/04/16 Physical Exam Vital Signs: Vital Signs Temperature 98.1 F 10/09/16 15:26 Pulse Rate 59 L 10/09/16 15:26 Respiratory Rate 20 10/09/16 15:26 Blood Pressure 131/54 10/09/16 15:26 O2 Sat by Pulse Oximetry (%) 95 10/09/16 09:00 Wound/Incision: Yes: Other (Right Hallux amputation flap is intact with no dehiscence, erythema, edema, drainage, or local temp increase.) Labs: CBC, BMP 10/05/16 05:35 10/05/16 05:35 Assessment/Plan Assessment 3 days post right hallux amputation for osteomyelitis of the distal aspect of the proximal phalanx. No adverse signs or symptoms noted in the patient. Tissue culture of the first metatarsal head and surrounding soft tissue was negative following complete amputation of the hallux. Plan Ok for discharge pending medical clearance by Dr. Rollins. Rx Levaquin 500mg daily. I will follow the patient in my office on Sunday. David Gill DPM.
[2016-10-09 19:55] VITALS: BP 153/86; PULSE 67
== END 2016-10-09 20:22 | disposition home or self-care (01) | DRG 617 ==
LOC: JER 16:20 → JERBED 17:32 → J5S 19:42
PROVIDERS: ADMIT Family Medicine; ATTEND Family Medicine
PROC: 0HRMX74 Replacement of Right Foot Skin with Autologous Tissue Substitute, Partial Thickness, External Approach (ICD-10-PCS; 2016-10-06)
PROC: 0Y6P0Z2 Detachment at Right 1st Toe, Mid, Open Approach (ICD-10-PCS; principal; 2016-10-06 12:00)
DX: E11.69 Type 2 diabetes mellitus with other specified complication (principal); M86.8X8 Other osteomyelitis, other site; I10 Essential (primary) hypertension; I25.10 Atherosclerotic heart disease of native coronary artery without angina pectoris; E11.65 Type 2 diabetes mellitus with hyperglycemia; E11.51 Type 2 diabetes mellitus with diabetic peripheral angiopathy without gangrene; I87.8 Other specified disorders of veins; E11.621 Type 2 diabetes mellitus with foot ulcer; Z88.0 Allergy status to penicillin; Z87.891 Personal history of nicotine dependence; Z86.718 Personal history of other venous thrombosis and embolism; Z95.1 Presence of aortocoronary bypass graft; Z86.73 Personal history of transient ischemic attack (TIA), and cerebral infarction without residual deficits; Z89.421 Acquired absence of other right toe(s)
CPT/HCPCS: 36415; 71010-TC; 73630-TC-RT; 73721-RT-TC; 80053; 81003; 83036; 85025; 85610; 85651; 85730; 86140; 86850; 86900; 86901; 87040; 87070; 87075; 87186; 87205; 88304-TC; 88311-TC; 93005; 93010; 93970-TC; 94760; 97116-GP; 97161-GP; 99283-25; J1644

== ENCOUNTER 2018-07-19 15:20 | Observation (INO) | payer OTHER ==
--- NOTE | 2018-07-19 16:00 | PDOC ---
History of Present Illness - General Chief Complaint: CVA/TIA Stated Complaint: numbess Time Seen by Provider: 07/19/18 15:31 History Source: Patient Exam Limitations: No Limitations - History of Present Illness Initial Comments: 07/19/18 15:56 Pt is a 73yo M with CAD s/p bypass 2014, IDDM with pump and retinopathy, HTN, HLD presenting to ED with complaints of R sided numbness x2 hours. Pt states it started out with him having tunnel vision which he usually gets when his glucose is low but then he started to have numbness on the R side of his face and body. The vision resolved but he continues to have a feeling of numbness. He has never had a stroke before but states he was told by his previous neurologist that he has had "many TIAs". He also endorses slight headache. Denies head trauma, syncope, back pain, chest pain, sob, fevers, chills, recent illnesses, abdominal pain, n/v/d, urinary symptoms, dizziness, confusion. Pt states that he walked here and did not have a problem doing so. Not on ACs. PMD: Ayo Cards: Yun Shawm: Temo PMH: see hpi PSH: see hpi Meds: see med rec Allergies: PCN, Sulfa Past History - Past Medical History Allergies/Adverse Reactions: Allergies Allergy/AdvReac Type Severity Reaction Status Date / Time Penicillins Allergy Swelling Verified 07/19/18 15:24 Sulfa (Sulfonamide Allergy Swelling Verified 07/19/18 15:24 Antibiotics) Home Medications: Ambulatory Orders Subcutaneous Insulin Pump [Insulin Pump] 1 each MC QID 07/21/11 Atorvastatin Ca [Lipitor] 40 mg PO DAILY 05/12/15 Metoprolol Tartrate [Lopressor -] 25 mg PO BID 06/23/15 Aspirin Coated [Ecotrin -] 81 mg PO DAILY 05/18/16 Clobetasol Prop 0.05% Top Cr 1 applic TP BID 10/04/16 Anemia: No Asthma: No Cancer: No Cardiac Disorders: Yes (CAD) CVA: No COPD: No Dementia: No 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) GI Disorders: No Disorders: No HTN: Yes Hypercholesterolemia: Yes Liver Disease: No Seizures: No Thyroid Disease: No - Surgical History Abdominal Surgery: No Appendectomy: No Cardiac Surgery: Yes (BYPASS 12/31) Cholecystectomy: No Lung Surgery: No Neurologic Surgery: No Orthopedic Surgery: No (Right 1st Toe Debridement) - Suicide/Smoking/Psychosocial Hx Smoking Status: No Smoking History: Never smoked Years of Tobacco Use: 22 Have you smoked in the past 12 months: No Number of Cigarettes Smoked Daily: 4 If you are a former smoker, when did you quit?: 25 YRS Information on smoking cessation initiated: No Hx Alcohol Use: No Drug/Substance Use Hx: No Substance Use Type: None Hx Substance Use Treatment: No Review of Systems - Review of Systems Constitutional: No: Symptoms Reported HEENTM: Yes: See HPI. No: Blurred Vision, Double Vision Respiratory: No: Cough, Shortness of Breath, Wheezing Cardiac (ROS): No: Chest Pain, Lightheadedness, Palpitations, Syncope ABD/GI: No: Constipated, Diarrhea, Nausea, Vomiting, Abdominal cramping : No: Burning, Dysuria, Flank Pain Musculoskeletal: No: Back Pain, Joint Pain, Muscle Weakness, Neck Pain Integumentary: No: Symptoms Reported Neurological: Yes: Headache, Numbness, Paresthesia. No: Seizure, Tingling, Weakness, Ataxia, Dizziness *Physical Exam - Vital Signs Last Vital Signs Temp Pulse Resp BP Pulse Ox 98.0 F 88 16 167/77 100 07/19/18 15:26 07/19/18 15:26 07/19/18 15:26 07/19/18 15:26 07/19/18 15:26 - Physical Exam General Appearance: Yes: Nourished, Appropriately Dressed. No: Apparent Distress HEENT: positive: EOMI, ELIE, Normal ENT Inspection Neck: positive: Trachea midline, Supple. negative: Lymphadenopathy (R), Lymphadenopathy (L) Respiratory/Chest: positive: Lungs Clear, Normal Breath Sounds Cardiovascular: positive: Regular Rhythm, Regular Rate, S1, S2 Vascular Pulses: Carotid (R): 2+, Carotid (L): 2+, Dorsalis-Pedis (R): 2+, Doralis-Pedis (L): 2+ Gastrointestinal/Abdominal: positive: Normal Bowel Sounds, Soft. negative: Tender Musculoskeletal: negative: CVA Tenderness Extremity: positive: Normal Capillary Refill. negative: Pedal Edema, Swelling, Calf Tenderness Integumentary: positive: Normal Color, Dry, Warm Neurologic: positive: multimedia coordinator II-XII NML intact, Fully Oriented, Alert, Normal Mood/ Affect, Normal Response, Motor Strength 5/5 NIH Stroke Scale - Last Known Well Date/Time & Onset Date Last Known Well: 07/19/18 Time Last Known Well: 02:00 - Initial Evaluation Level of consciousness: Alert Ask patient the month and their age: Answers both correctly Ask patient to open & close eyes; make fist and let go: Obeys both correctly Best gaze (horizontal eye movement): Normal Visual field testing: No visual field loss Facial paresis (Show teeth/raise eyebrows/close eyes tight): Normal symmetrical movement Motor Function: Left Arm: Normal Motor Function: Right Arm: Normal (extends arm 90 (or 45) degrees for 10 seconds without drift Motor Function: Left Leg: Normal (extends leg 30 degrees for 5 seconds without drift) Motor Function: Right Leg: Normal (extends leg 30 degrees for 5 seconds without drift) Limb Ataxia: No ataxia Sensory(Use pinprick test arms,legs,trunk,face/side to side): Normal Best language (Describe picture, name items, read sentences): No Aphasia Dysarthria (read several words): Normal articulation Extinction and Inattention: No abnormality - Total Score NIH Stroke Scale Score: 0 Critical Care Time/MDM Note - Medical Decision Making Note: 07/19/18 16:00 Pt is a 73yo M with CAD s/p bypass 2015, IDDM with pump and retinopathy, HTN, HLD presenting to ED with complaints of R sided numbness x2 hours. Pt states it started out with him having tunnel vision which he usually gets when his glucose is low but then he started to have numbness on the R side of his face and body. The vision resolved but he continues to have a feeling of numbness. He has never had a stroke before but states he was told by his previous neurologist that he has had "many TIAs". He also endorses slight headache. Denies head trauma, syncope, back pain, chest pain, sob, fevers, chills, recent illnesses, abdominal pain, n/v/d, urinary symptoms, dizziness, confusion. Pt states that he walked here and did not have a problem doing so. Not on ACs. Vitals: wnl PE: normal. NIHSS 0 Ddx includes but not limited to cva, tia, neuropathy, lyme, electrolyte/ metabolic abnormality, arrhythmia, intracranial bleed, malignancy -labs -ekg, ct head -asa labs wnl. EKG: nonspecific TWF/q wave in III. nsr CT head: chronic microvascular infarct, no new bleed or infarct. due to r sided distribution of paresthesia and h/o multiple TIAs will admit pt for obs. pt endorsed to hospitalist. *DC/Admit/Observation/Transfer Diagnosis at time of Disposition: Paresthesias - Discharge Dispostion Condition at time of disposition: Good Decision to Admit order: Yes - Referrals Referrals: Cas Rollins MD [Primary Care Provider] - - Patient Instructions - Post Discharge Activity
--- NOTE | 2018-07-19 16:13 | PDOC ---
Attending Attestation - Resident Resident Name: Lizbeth Martinez - ED Attending Attestation I have performed the following: I have examined & evaluated the patient, The case was reviewed & discussed with the resident, I agree w/resident's findings & plan - HPI HPI: 07/19/18 16:11 73yo M with CAD s/p bypass 2014, IDDM with pump and retinopathy, HTN, HLD, TIA presenting to ED with complaints of R sided facial numbness, that also involved his body x2 hours, a/w tunnel vision that has since resolved - which he attributed to low sugar, he drank juice and felt better. ambulatory, no gait instability. mild headache, no dizziness, no falls, AMS or hearing changes, vomiting.. Not on ACs, compliant with meds similar presentations previously, which were attributed to TIAs.. 07/19/18 17:23 - Physicial Exam PE: 07/19/18 16:18 Agree with the resident's HPI and PE as documented in the electronic medical record. NAD, well appearing, PERRL, EOMI, nl conjunctiva, anicteric; neck supple. lungs clear, RRR, abdomen soft nontender. SINGH x4, no focal neuro deficits. No peripheral edema. normal color for ethnicity, WWP. Alert, oriented to person time and place. CN II-XII grossly intact. Strength prox and distally 5/5 throughout. Sensation grossly intact to light touch. SINGH x4. No cerebellar signs, no dysmetria, bilateral finger to nose and heel to sandy equal and symmetric. Speech clear. 07/19/18 16:52 - Medical Decision Making 07/19/18 16:18 See HPI for details Vital signs reviewed, wnl. DDX CVA, neuropathy, [place]'s palsy, metabolic derangements, electrolyte abnormalities, infection. Prior notes reviewed, including admissions, discharges and consultations. laboratory results and imaging reviewed, basic labs and lytes wnl, Cardiac panel_neg trop EKG normal sinus rhythm, no interval abnormalities, narrow QRS, ST and T wave segments and morphology normal. Nonspecific T wave abnormalities in III only - changed from prior. 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 NIHSS zero on my assessment - no objective findings, only subjective facial paresthesia, now resolving symptoms, not candidate for TPA. admit for TIA/stroke workup, neuro cs 07/19/18 17:25 07/19/18 17:27 Heart Score/ECG Review #1 ECG reviewed & interpreted by me at: 15:25 General ECG Interpretation: Sinus Rhythm, Normal Rate, Normal Intervals Compared to previous ECG there are: Changes noted 07/19/18 16:12 nonspecific TWF/q wave in III
[2018-07-19 16:24] LABS: ALBUMIN 3.9 g/dl (3.4-5.0); ALK PHOS 70 U/L (45-117); ANION GAP 4 MMOL/L (8-16); BLOOD UREA NITROGEN 25 mg/dL (7-18); CHLORIDE 106 mmol/L (98-107); CHOLESTEROL 165 mg/dL (50-200); CO2 28 mmol/L (21-32); CREATININE 1.2 mg/dL (0.55-1.3); GLUCOSE,RANDOM 201 mg/dL (74-106); HDL CHOLESTEROL 40 mg/dL (40-60); POTASSIUM 4.1 mmol/L (3.5-5.1); SGOT/AST 18 U/L (15-37); SGPT/ALT 22 U/L (13-61); SODIUM 139 mmol/L (136-145); TOT PROT 7.2 g/dl (6.4-8.2); TRIGLYCERIDES 137 mg/dL (0-150)
[2018-07-19 16:27] LABS: BASO % 0.6 % (0-2.0); EOS % 2.7 % (0-4.5); HEMATOCRIT 40.9 % (35.4-49); HEMOGLOBIN 13.3 GM/dL (11.7-16.9); LYMPH % 18.7 % (8-40); MCHC 32.6 g/dl (32.0-35.9); MEAN PLT VOLUME 9.3 fl (7.5-11.1); MONO % 9.9 % (3.8-10.2); NEUT % 68.1 % (42.8-82.8); PLATELET COUNT 162 K/MM3 (134-434); RBC 4.76 M/mm3 (4.00-5.60); RDW 13.2 % (11.9-15.9); WHITE BLOOD COUNT 5.5 K/mm3 (4.0-10.0)
[2018-07-19 16:51] LABS: INR 0.98 (0.83-1.09); PROTHROMBIN TIME (PATIENT) 11.6 SEC (9.7-13.0)
[2018-07-19] MEDS ORDERED: ASPIRIN COATED 81 MG TABLET.EC PO ONE (17:40)
[2018-07-19] MEDS ORDERED: ASPIRIN 81 MG CHEWABLE TABLETS ONE (18:50)
--- NOTE | 2018-07-19 20:13 | HP ---
CHIEF COMPLAINT: right facial, upper extremity PCP: Ayo HISTORY OF PRESENT ILLNESS: 73yo man with right sided facial numbness and right upper extremity numbness which started about 1pm on 07/19 and lasted less than 1 hr. Started suddenly, not associated with any exertion. Patient reported fingerstick of 188mg/dl around the time symptoms started. Mild headache+ which is now resolved. ER course was notable for: (1) head ct (2) ekg (3) Recent Travel: no PAST MEDICAL HISTORY: CAD s/p bypass 2014, IDDM with pump,retinopathy, HTN, HLD , prior TIA episode PAST SURGICAL HISTORY: CABG, right hallux amputation Social History: Smoking: quit 30 years ago Alcohol: no Drugs: no Family History: mother with DM Allergies Penicillins Allergy (Verified 07/19/18 15:24) Swelling Sulfa (Sulfonamide Antibiotics) Allergy (Verified 07/19/18 15:24) Swelling HOME MEDICATIONS: Home Medications Medication Instructions Recorded Subcutaneous Insulin Pump [Insulin 1 each MC QID 07/21/11 Pump] Atorvastatin Ca [Lipitor] 40 mg PO DAILY 05/12/15 Metoprolol Tartrate [Lopressor -] 25 mg PO BID 06/23/15 Aspirin Coated [Ecotrin -] 81 mg PO DAILY 05/18/16 Clobetasol Prop 0.05% Top Cr 1 applic TP BID 10/04/16 REVIEW OF SYSTEMS CONSTITUTIONAL: Absent: fever, chills, diaphoresis, generalized weakness, malaise, loss of appetite, weight change HEENT: Absent: rhinorrhea, nasal congestion, throat pain, throat swelling, difficulty swallowing, mouth swelling, ear pain, eye pain, visual changes CARDIOVASCULAR: Absent: chest pain, syncope, palpitations, irregular heart rate, lightheadedness , peripheral edema RESPIRATORY: Absent: cough, shortness of breath, dyspnea with exertion, orthopnea, wheezing, stridor, hemoptysis GASTROINTESTINAL: Absent: abdominal pain, abdominal distension, nausea, vomiting, diarrhea, constipation, melena, hematochezia GENITOURINARY: Absent: dysuria, frequency, urgency, hesitancy, hematuria, flank pain, genital pain MUSCULOSKELETAL: Absent: myalgia, arthralgia, joint swelling, back pain, neck pain SKIN: Absent: rash, itching, pallor HEMATOLOGIC/IMMUNOLOGIC: Absent: easy bleeding, easy bruising, lymphadenopathy, frequent infections ENDOCRINE: Absent: unexplained weight gain, unexplained weight loss, heat intolerance, cold intolerance NEUROLOGIC: Absent: focal weakness or paresthesias, dizziness, unsteady gait, seizure, mental status changes, bladder or bowel incontinence present- right face, upper extremity numbness, headache, PSYCHIATRIC: Absent: anxiety, depression, suicidal or homicidal ideation, hallucinations. PHYSICAL EXAMINATION Vital Signs - 24 hr 07/19/18 07/19/18 15:26 18:58 Temperature 98.0 F 98.1 F Pulse Rate 88 Pulse Rate [ 73 Apical] Respiratory 16 20 Rate Blood Pressure 167/77 Blood Pressure 149/70 [Right Arm] O2 Sat by Pulse 100 97 Oximetry (%) GENERAL: Awake, alert, and fully oriented, in no acute distress. HEAD: Normal with no signs of trauma. EYES: Pupils equal, round and reactive to light, extraocular movements intact, sclera anicteric, conjunctiva clear. No lid lag. EARS, NOSE, THROAT: Ears normal, nares patent, oropharynx clear without exudates. Moist mucous membranes. NECK: Normal range of motion, supple without lymphadenopathy, JVD, or masses. LUNGS: Breath sounds equal, clear to auscultation bilaterally. No wheezes, and no crackles. No accessory muscle use. HEART: Regular rate and rhythm, normal S1 and S2 without murmur, rub or gallop. ABDOMEN: Soft, nontender, not distended, insulin pump in place MUSCULOSKELETAL: Normal range of motion at all joints. No bony deformities or tenderness. No CVA tenderness. UPPER EXTREMITIES: 2+ pulses, warm, well-perfused. No cyanosis. No clubbing. No peripheral edema. LOWER EXTREMITIES: right hallux s/p amputation, right lateral erythematous leg rash NEUROLOGICAL: Cranial nerves II-XII intact. Normal speech. No focal neuro deficits noted PSYCHIATRIC: Cooperative. Good eye contact. Appropriate mood and affect. SKIN: Warm, dry, normal turgor, no rashes or lesions noted, normal capillary refill. Laboratory Results - last 24 hr 07/19/18 07/19/18 07/19/18 15:36 15:46 15:46 WBC 5.5 RBC 4.76 Hgb 13.3 Hct 40.9 MCV 86.0 MCH 28.0 MCHC 32.6 RDW 13.2 Plt Count 162 MPV 9.3 Absolute Neuts (auto) 3.7 Neutrophils % 68.1 Lymphocytes % 18.7 Monocytes % 9.9 Eosinophils % 2.7 Basophils % 0.6 Nucleated RBC % 0 PT with INR 11.60 INR 0.98 Sodium Potassium Chloride Carbon Dioxide Anion Gap BUN Creatinine Creat Clearance w eGFR POC Glucometer 193 Random Glucose Calcium Total Bilirubin AST ALT Alkaline Phosphatase Creatine Kinase Troponin I Total Protein Albumin Triglycerides Cholesterol Total LDL Cholesterol HDL Cholesterol 07/19/18 15:46 WBC RBC Hgb Hct MCV MCH MCHC RDW Plt Count MPV Absolute Neuts (auto) Neutrophils % Lymphocytes % Monocytes % Eosinophils % Basophils % Nucleated RBC % PT with INR INR Sodium 139 Potassium 4.1 Chloride 106 Carbon Dioxide 28 Anion Gap 4 L BUN 25 H Creatinine 1.2 Creat Clearance w eGFR 59.35 POC Glucometer Random Glucose 201 H Calcium 9.0 Total Bilirubin 1.0 AST 18 ALT 22 Alkaline Phosphatase 70 Creatine Kinase 105 Troponin I < 0.02 Total Protein 7.2 Albumin 3.9 Triglycerides 137 Cholesterol 165 Total LDL Cholesterol 106 H HDL Cholesterol [address] reviewed ekg reviewed ASSESSMENT/PLAN: #Right facial, upper extremity numbness (now resolved)- likely TIA- head CT was wnl -tele-obs -bed rest -NPO -echo -carotid doppler u/s b/l -ASA -statin -moderate dose -speech and swallow eval -neuro eval #DM -uncontrolled, with retinopathy, insulin dependent -NPO for now -insulin pump is currently on hold as pt is npo -a1c #HTN-uncontrolled -c/w metoprolol home dose, titrate as needed dvt ppx -heparin sc Visit type - Emergency Visit Emergency Visit: Yes ED Registration Date: 07/19/18 Care time: The patient presented to the Emergency Department on the above date and was hospitalized for further evaluation of their emergent condition. - New Patient This patient is new to me today: Yes Date on this admission: 07/19/18 - Critical Care Critical Care patient: No
[2018-07-19 21:33] LABS: URINE APPEARANCE CLEAR; URINE BILIRUBIN NEGATIVE (NEGATIVE); URINE COLOR YELLOW; URINE GLUCOSE (UA) TRACE (NEGATIVE); URINE KETONE NEGATIVE (NEGATIVE); URINE LEUK ESTERASE NEGATIVE (NEGATIVE); URINE NITRITE NEGATIVE (NEGATIVE); URINE PROTEIN NEGATIVE (NEGATIVE)
[2018-07-19] MEDS: HEPARIN NA (PORCINE) 5,000 UNITS/ML 1ML VIAL SQ SCH (21:56)
[2018-07-19] MEDS: METOPROLOL TARTRATE 25 MG TABLET (FP) PO SCH (21:56)
[2018-07-19] MEDS ORDERED: INSULIN SLIDING SCALE (NOVOLOG) 1 VIAL SQ SCH (22:00)
[2018-07-19] MEDS ORDERED: ATORVASTATIN CA 40 MG TABLET (FP) PO SCH (22:00)
[2018-07-19 22:24] VITALS: BMI 29.7
[2018-07-20 08:13] LABS: BASO % 0.8 % (0-2.0); EOS % 3.8 % (0-4.5); HEMATOCRIT 38.5 % (35.4-49); HEMOGLOBIN 12.9 GM/dL (11.7-16.9); LYMPH % 28.1 % (8-40); MCH 28.6 pg (25.7-33.7); MCHC 33.6 g/dl (32.0-35.9); MEAN CELL VOLUME 85.2 fl (80-96); MEAN PLT VOLUME 9.1 fl (7.5-11.1); MONO % 9.8 % (3.8-10.2); NEUT % 57.5 % (42.8-82.8); PLATELET COUNT 153 K/MM3 (134-434); RBC 4.51 M/mm3 (4.00-5.60); RDW 13.3 % (11.9-15.9)
[2018-07-20 08:17] LABS: ANION GAP 6 MMOL/L (8-16); BLOOD UREA NITROGEN 20 mg/dL (7-18); CALCIUM 8.8 mg/dL (8.5-10.1); CHLORIDE 106 mmol/L (98-107); CHOLESTEROL 153 mg/dL (50-200); CO2 27 mmol/L (21-32); CREATININE 0.9 mg/dL (0.55-1.3); GLUCOSE,RANDOM 168 mg/dL (74-106); HDL CHOLESTEROL 37 mg/dL (40-60); MAGNESIUM 2.2 mg/dL (1.8-2.4); POTASSIUM 4.4 mmol/L (3.5-5.1); SODIUM 138 mmol/L (136-145); TRIGLYCERIDES 119 mg/dL (0-150)
--- NOTE | 2018-07-20 08:28 | EKG ---
Test Reason : Blood Pressure : / mmHG Vent. Rate : 077 BPM Atrial Rate : 077 BPM P-R Int : 174 ms QRS Dur : 088 ms QT Int : 366 ms P-R-T Axes : 071 055 056 degrees QTc Int : 414 ms NORMAL SINUS RHYTHM POSSIBLE LEFT ATRIAL ENLARGEMENT BORDERLINE ECG WHEN COMPARED WITH ECG OF 05-OCT-2016 09:14, NO SIGNIFICANT CHANGE WAS FOUND Confirmed by NICHOLAS KAT, ELIAS ([id number]) on 07/20/2018 8:28:32 AM Referred By: Confirmed By:ELIAS PETERSON MD
[2018-07-20] MEDS: METOPROLOL TARTRATE 25 MG TABLET (FP) PO SCH (09:45)
[2018-07-20] MEDS: HEPARIN NA (PORCINE) 5,000 UNITS/ML 1ML VIAL SQ SCH (09:45)
[2018-07-20] MEDS ORDERED: ASPIRIN COATED 81 MG TABLET.EC PO SCH (10:00)
--- NOTE | 2018-07-20 10:54 | PN ---
Progress Note, Physician - Current Medication List Current Medications: Active Medications Aspirin (Ecotrin -) 81 mg PO DAILY [facility] Last Admin: 07/20/18 09:45 Dose: 81 mg Atorvastatin Calcium (Lipitor -) 40 mg PO HS [facility] Last Admin: 07/19/18 21:56 Dose: 40 mg Heparin Sodium (Porcine) (Heparin -) 5,000 unit SQ BID [facility] Last Admin: 07/20/18 09:45 Dose: 5,000 unit Metoprolol Tartrate (Lopressor -) 25 mg PO BID [facility] Last Admin: 07/20/18 09:45 Dose: 25 mg - Objective Vital Signs: Vital Signs Temperature 97.6 F 07/20/18 09:51 Pulse Rate 61 07/20/18 09:51 Respiratory Rate 20 07/20/18 09:51 Blood Pressure 141/72 07/20/18 09:51 O2 Sat by Pulse Oximetry (%) 97 07/20/18 04:14 Labs: CBC, BMP 07/20/18 06:00 07/20/18 06:00 INR, PTT INR 0.98 (0.83-1.09) 07/19/18 15:46
--- NOTE | 2018-07-20 11:45 | PN ---
Progress Note, Physician - Current Medication List Current Medications: Active Medications Aspirin (Ecotrin -) 81 mg PO DAILY [facility] Last Admin: 07/20/18 09:45 Dose: 81 mg Atorvastatin Calcium (Lipitor -) 40 mg PO HS [facility] Last Admin: 07/19/18 21:56 Dose: 40 mg Heparin Sodium (Porcine) (Heparin -) 5,000 unit SQ BID [facility] Last Admin: 07/20/18 09:45 Dose: 5,000 unit Metoprolol Tartrate (Lopressor -) 25 mg PO BID [facility] Last Admin: 07/20/18 09:45 Dose: 25 mg Non-Formulary Medication (Subcutaneous Insulin Pump [Insulin Pump]) 1 each QID [facility] - Objective Vital Signs: Vital Signs Temperature 97.6 F 07/20/18 09:51 Pulse Rate 61 07/20/18 09:51 Respiratory Rate 20 07/20/18 09:51 Blood Pressure 141/72 07/20/18 09:51 O2 Sat by Pulse Oximetry (%) 97 07/20/18 04:14 Labs: CBC, BMP 07/20/18 06:00 07/20/18 06:00 INR, PTT INR 0.98 (0.83-1.09) 07/19/18 15:46 Problem List - Problems (1) TIA (transient ischemic attack) Assessment/Plan: Right facial, upper extremity numbness (now resolved)- likely TIA- head CT was wnl -tele-obs -echo -carotid doppler u/s b/l no sig stenosis -ASA -statin -moderate dose -neuro eval Code(s): G45.9 - TRANSIENT CEREBRAL ISCHEMIC ATTACK, UNSPECIFIED Qualifiers: Transient cerebral ischemia type: unspecified Qualified Code(s): G45.9 - Transient cerebral ischemic attack, unspecified (2) Diabetes Assessment/Plan: -uncontrolled, with retinopathy, insulin dependent -insulin pump per endo -diabetic diet -a1c -8 Code(s): E11.9 - TYPE 2 DIABETES MELLITUS WITHOUT COMPLICATIONS
[2018-07-20] MEDS ORDERED: SUBCUTANEOUS INSULIN PUMP MC SCH (14:00)
--- NOTE | 2018-07-20 15:05 | CONSULT ---
Consult - text type - Consultation Consultation Note: NEUROLOGY CONSULTATION is greatly appreciated: Events reviewed, patient examined. Discussed with his and daughter. 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 Long H/O DM -controlled with pump (Albert Gaviria) and complicated by peripheral neuropathy, s/p great toe amputation and retinopathy (Otf Starks). ASHD s/p CABG x4 2015. Since CABG has had about 12 episodes of "Tunnel vision" lasting 10-15 mins and attributed to hypoglycemia. Meds include: Subcutaneous Insulin Pump; Atorvastatin Ca; Metoprolol 25 mg PO BID; and Aspirin Coated [Ecotrin -] 81 mg. Yesterday developed typical, stereotyped tunnel vision (but BG was 188 mg%) associated with right racial numbness and mild right sided headache. Walked to the ED. All aymptoms resolved before CT scan. + FH of migraine TAVERAS's in his son (and apparently not in his ex-). CT of head (reviewed): Scattered microvasular changes Carotid duplex doppler: No significant hemodynamic changes HEATHER: No bruits. Cor reg. Atrophic skin changes for caves/shins. S/p toe amputation NEURO: MS/speech: Normal CN II-XII: normal. Fundi not examined Motor: No drift or tdremor. Normal strength and bulk. Normal reflexes except absent AJ's. Coord: No FTN dystaxia Sensory: Decreased vib to lower calf. Romberg +/- Gait: Normal IMP: Non-focal neurological exam sig for moderately severe diabetic peripheral neuropathy. Cannot r/o TIA but doubt. Suspect Migraine penomenon a more likely explanation of yesterday's symptoms. Suggest: Increase metoprolol to 50 mg BID for migraine prophylaxis. Continue ASA 81 mg. Check ESR, CRP, B12 Neuro f/u as out patient. Thank you very much, Yakov King MD
[2018-07-20 16:11] VITALS: BP 131/71; PULSE 83; TEMP 98.3
--- NOTE | 2018-07-20 16:31 | DS ---
Physical Examination Vital Signs: Vital Signs Temperature 98.3 F 07/20/18 14:00 Pulse Rate 83 07/20/18 14:00 Respiratory Rate 20 07/20/18 14:00 Blood Pressure 131/71 07/20/18 14:00 O2 Sat by Pulse Oximetry (%) 97 07/20/18 04:14 Labs: CBC, BMP 07/20/18 06:00 07/20/18 06:00 Discharge Summary Reason For Visit: PARESTHESIA; TANSIENT CEREBRAL ISCHEMIA Current Active Problems Paresthesias (Acute) TIA (transient ischemic attack) (Acute) Condition: Good - Instructions Referrals: Elijah Gaviria MD [Staff Physician] - 1 Week Disposition: HOME - Home Medications Comprehensive Discharge Medication List: Ambulatory Orders Subcutaneous Insulin Pump [Insulin Pump] 1 each MC QID 07/21/11 Atorvastatin Ca [Lipitor] 40 mg PO DAILY 05/12/15 Metoprolol Tartrate [Lopressor -] 25 mg PO BID 06/23/15 Aspirin Coated [Ecotrin -] 81 mg PO DAILY 05/18/16
--- NOTE | 2018-07-20 17:33 | CONSULT ---
Consult Consult Specialty:: endocrine Referred by:: dr.annabi rivera Reason for Consultation:: dm2 - History of Present Illness Chief Complaint: numbness face labile sugars History of Present Illness: 73yo man with pmh dm2,insulin requiring has history labile blood sugars on insulin pump,and cgms unit found himself with right sided facial numbness and right upper extremity numbness which started about 1pm on 07/19 and lasted less than 1 hr. Started suddenly, not associated with any exertion. Patient reported fingerstick of 188mg/dl around the time symptoms started. Mild headache+ which resolved spontaneously,he did have slight headache earlier.denies cp cough fever or chills. 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: Yes: CVA Cardio/Vascular: Yes: CAD (-S/P CABG), HTN, Hyperlipdemia, Other (pad) Endocrine: Yes: Diabetes Mellitus (on insulin pump) - Past Surgical History Past Surgical History: Yes: Amputation (tip of right first toe), CABG (in 12/31) - Alcohol/Substance Use Hx Alcohol Use: No History of Substance Use: reports: None - Smoking History Smoking history: Former smoker Have you smoked in the past 12 months: No Aproximately how many cigarettes per day: 80 If you are a former smoker, when did you quit?: years ago - Social History ADL: Independent History of Recent Travel: No Home Medications - Allergies Allergies/Adverse Reactions: Allergies Allergy/AdvReac Type Severity Reaction Status Date / Time Penicillins Allergy Swelling Verified 07/19/18 15:24 Sulfa (Sulfonamide Allergy Swelling Verified 07/19/18 15:24 Antibiotics) - Home Medications Home Medications: Ambulatory Orders Subcutaneous Insulin Pump [Insulin Pump] 1 each MC QID 07/21/11 Atorvastatin Ca [Lipitor] 40 mg PO DAILY 05/12/15 Metoprolol Tartrate [Lopressor -] 25 mg PO BID 06/23/15 Aspirin Coated [Ecotrin -] 81 mg PO DAILY 05/18/16 Review of Systems - Review of Systems Constitutional: reports: Lethargy, Weakness Eyes: reports: No Symptoms HENT: reports: No Symptoms Neck: reports: No Symptoms Cardiovascular: reports: Shortness of Breath Respiratory: reports: Exercise Intolerance, SOB on Exertion Gastrointestinal: reports: Constipation Breasts: reports: No Symptoms Reported Musculoskeletal: reports: Muscle Pain, Muscle Cramps, Muscle Weakness Integumentary: reports: No Symptoms Neurological: reports: Numbness, Weakness Physical Exam Vital Signs: Vital Signs Temperature 98.3 F 07/20/18 14:00 Pulse Rate 83 07/20/18 14:00 Respiratory Rate 20 07/20/18 14:00 Blood Pressure 131/71 07/20/18 14:00 O2 Sat by Pulse Oximetry (%) 97 07/20/18 04:14 Constitutional: Yes: Calm Eyes: Yes: EOM Intact HENT: Yes: Normocephalic Neck: Yes: Trachea Midline Cardiovascular: Yes: Regular Rate and Rhythm Respiratory: Yes: CTA Bilaterally Gastrointestinal: Yes: Normal Bowel Sounds ...Rectal Exam: Yes: Deferred Renal/: Yes: WNL Breast(s): Yes: WNL Musculoskeletal: Yes: WNL Extremities: Yes: WNL Edema: Yes Edema: LLE: Trace, RLE: Trace Integumentary: Yes: WNL Neurological: Yes: Alert, Oriented, Numbness, Tingling Labs: CBC, BMP 07/20/18 06:00 07/20/18 06:00 Problem List - Problems (1) Paresthesias Code(s): R20.2 - PARESTHESIA OF SKIN (2) TIA (transient ischemic attack) Code(s): G45.9 - TRANSIENT CEREBRAL ISCHEMIC ATTACK, UNSPECIFIED Qualifiers: Transient cerebral ischemia type: unspecified Qualified Code(s): G45.9 - Transient cerebral ischemic attack, unspecified (3) Arteriosclerotic heart disease (ASHD) Code(s): I25.10 - ATHSCL HEART DISEASE OF [place] CORONARY ARTERY W/O ANG PCTRS (4) Cellulitis Code(s): L03.90 - CELLULITIS, UNSPECIFIED Qualifiers: Site of cellulitis: extremity Site of cellulitis of extremity: lower extremity Laterality: right Qualified Code(s): L03.115 - Cellulitis of right lower limb (5) Cerebrovascular accident (CVA) Code(s): I63.9 - CEREBRAL INFARCTION, UNSPECIFIED (6) Chest congestion Code(s): R09.89 - OTH SYMPTOMS AND SIGNS INVOLVING THE CIRC AND RESP SYSTEMS (7) Chest pain Code(s): R07.9 - CHEST PAIN, UNSPECIFIED Qualifiers: Chest pain type: unspecified Qualified Code(s): R07.9 - Chest pain, unspecified (8) Diabetes Code(s): E11.9 - TYPE 2 DIABETES MELLITUS WITHOUT COMPLICATIONS Assessment/Plan Current Active Problems dm 2 neuropathy \htn ashd,cad hld Paresthesias (Acute) TIA (transient ischemic attack) (Acute) Abnormal Lab Results 07/20/18 07/20/18 06:00 06:00 Anion Gap 6 L BUN 20 H Random Glucose 168 H Hemoglobin A1c % 8.0 H HDL Cholesterol 37 L Laboratory Results - last 24 hr 07/19/18 07/19/18 07/20/18 20:13 21:23 05:10 WBC RBC Hgb Hct MCV MCH MCHC RDW Plt Count MPV Absolute Neuts (auto) Neutrophils % Lymphocytes % Monocytes % Eosinophils % Basophils % Nucleated RBC % Sodium Potassium Chloride Carbon Dioxide Anion Gap BUN Creatinine Creat Clearance w eGFR POC Glucometer 129 165 Random Glucose Hemoglobin A1c % Calcium Magnesium Triglycerides Cholesterol Total LDL Cholesterol HDL Cholesterol Urine Color Yellow Urine Appearance Clear Urine pH 6.0 Ur Specific [place] 1.022 Urine Protein Negative Urine Glucose (UA) Trace Urine Ketones Negative Urine Blood Negative Urine Nitrite Negative Urine Bilirubin Negative Urine Urobilinogen 1.0 Ur Leukocyte Esterase Negative 07/20/18 07/20/18 07/20/18 06:00 06:00 06:00 WBC 5.0 RBC 4.51 Hgb 12.9 Hct 38.5 MCV 85.2 MCH 28.6 MCHC 33.6 RDW 13.3 Plt Count 153 MPV 9.1 Absolute Neuts (auto) 2.9 Neutrophils % 57.5 Lymphocytes % 28.1 D Monocytes % 9.8 Eosinophils % 3.8 Basophils % 0.8 Nucleated RBC % 0 Sodium 138 Potassium 4.4 Chloride 106 Carbon Dioxide 27 Anion Gap 6 L BUN 20 H Creatinine 0.9 Creat Clearance w eGFR 82.72 POC Glucometer Random Glucose 168 H Hemoglobin A1c % 8.0 H Calcium 8.8 Magnesium 2.2 Triglycerides 119 Cholesterol 153 Total LDL Cholesterol 99 HDL Cholesterol 37 L Urine Color Urine Appearance Urine pH Ur Specific [place] Urine Protein Urine Glucose (UA) Urine Ketones Urine Blood Urine Nitrite Urine Bilirubin Urine Urobilinogen Ur Leukocyte Esterase plan: bgm using cgms plavix 75mg daily vitamin bcomplex on omnipod insulin infusion
[2018-07-21] MEDS ORDERED: CLOPIDOGREL BISULFATE 75 MG TABLET (FP) PO SCH (10:00)
[2018-07-21] MEDS ORDERED: VITAMIN B COMP W-C 1 EA TABLET PO SCH (10:00)
== END 2018-07-20 18:52 | disposition home or self-care (01) ==
LOC: JER 15:20 → JERBED 17:36 → INTOOBSV 17:36 → J4S 21:21
PROVIDERS: ADMIT Family Medicine; ATTEND Family Medicine
PROC: 3E013GC Introduction of Other Therapeutic Substance into Subcutaneous Tissue, Percutaneous Approach (ICD-10-PCS; principal; 2018-07-19)
DX: G45.9 Transient cerebral ischemic attack, unspecified (principal); R20.0 Anesthesia of skin; I10 Essential (primary) hypertension; E78.5 Hyperlipidemia, unspecified; I25.10 Atherosclerotic heart disease of native coronary artery without angina pectoris; E11.319 Type 2 diabetes mellitus with unspecified diabetic retinopathy without macular edema; E11.42 Type 2 diabetes mellitus with diabetic polyneuropathy; E11.65 Type 2 diabetes mellitus with hyperglycemia; Z96.41 Presence of insulin pump (external) (internal); Z95.1 Presence of aortocoronary bypass graft; Z88.0 Allergy status to penicillin; Z88.2 Allergy status to sulfonamides
CPT/HCPCS: 36415; 70450-TC; 80048; 80053; 80061; 81003; 82465; 82550; 82962; 83036; 83718; 83721; 83735; 84478; 84484; 85025; 85610; 93005; 93010; 93880-TC; 99285-25; G0378; J1644

== ENCOUNTER 2018-08-09 15:51 | Inpatient (IN) | payer OTHER | END 2018-08-12 14:49 | disposition home health service (06) | LOC: JER 15:51 → JERBED 16:44 → J4S 20:39 ==

== ENCOUNTER 2019-04-28 09:01 | Inpatient (IN) | payer OTHER ==
[2019-04-28 09:14] VITALS: BMI 30.5
--- NOTE | 2019-04-28 09:33 | PDOC ---
History of Present Illness - History of Present Illness Initial Comments: The pt is a 74M w/ a history of DM and previous CVA (residual left peripheral vision deficit) who presents for evaluation of 3 days of LUE numbness/tingling, trouble with LUE coordination, L ant thigh numbness, and trouble with balance. The pt states his symptoms have been constant since they started. He denies any head/neck trauma, fevers, previous neck surgery, or ever having had this happen before. Pt takes ASA/Plavix since previous stroke and has been compliant with meds. Denies fevers/chills, vision changes, chest pain, trouble breathing, abdominal pain, N/V/C/D, dysuria, difficulty urinating Denies falls 04/28/19 10:16 <Stevo Watt - Last Filed: 04/29/19 13:29> <Sean Casper - Last Filed: 05/01/19 19:51> - General Chief Complaint: CVA/TIA Stated Complaint: LT ARM NUMBNESS NIH Stroke Scale - Last Known Well Date/Time & Onset Date Last Known Well: 04/25/19 Time Last Known Well: 10:00 - Initial Evaluation Level of consciousness: Alert Ask patient the month and their age: Answers both correctly Ask patient to open & close eyes; make fist and let go: Obeys both correctly Best gaze (horizontal eye movement): Normal Visual field testing: Complete hemianopia (from prior CVA) Facial paresis (Show teeth/raise eyebrows/close eyes tight): Normal symmetrical movement Motor Function: Left Arm: Normal Motor Function: Right Arm: Normal (extends arm 90 (or 45) degrees for 10 seconds without drift Motor Function: Left Leg: Normal (extends leg 30 degrees for 5 seconds without drift) Motor Function: Right Leg: Normal (extends leg 30 degrees for 5 seconds without drift) Limb Ataxia: Present in one limb Sensory(Use pinprick test arms,legs,trunk,face/side to side): Mild to moderate decrease in sensation (L thigh deminished snseation) Best language (Describe picture, name items, read sentences): No Aphasia Dysarthria (read several words): Normal articulation Extinction and Inattention: No abnormality - Total Score NIH Stroke Scale Score: 4 <Sean Casper - Last Filed: 05/01/19 19:51> Past History - Past Medical History Anemia: No Asthma: No Cancer: No Cardiac Disorders: Yes (CAD) CVA: Yes (told by his neuro many "mini strokes") COPD: No Dementia: No 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) GI Disorders: No Disorders: No HTN: Yes Hypercholesterolemia: Yes Liver Disease: No Seizures: No Thyroid Disease: No - Surgical History Abdominal Surgery: No Appendectomy: No Cardiac Surgery: Yes (BYPASS 12/31) Cholecystectomy: No Lung Surgery: No Neurologic Surgery: No Orthopedic Surgery: No (1st R toe amp; 1st L toe debride) - Psycho Social/Smoking Cessation Hx Smoking Status: No Smoking History: Never smoked Years of Tobacco Use: 22 Have you smoked in the past 12 months: No Number of Cigarettes Smoked Daily: 80 If you are a former smoker, when did you quit?: years ago Hx Alcohol Use: No Drug/Substance Use Hx: No Substance Use Type: None Hx Substance Use Treatment: No <Stevo Watt - Last Filed: 04/29/19 13:29> <Sean Casper - Last Filed: 05/01/19 19:51> - Past Medical History Allergies/Adverse Reactions: Allergies Allergy/AdvReac Type Severity Reaction Status Date / Time Penicillins Allergy Swelling Verified 04/28/19 09:10 Sulfa (Sulfonamide Allergy Swelling Verified 04/28/19 09:10 Antibiotics) Home Medications: Ambulatory Orders Subcutaneous Insulin Pump [Insulin Pump] 1 each MC QID 07/21/11 Metoprolol Tartrate [Lopressor -] 25 mg PO BID 06/23/15 Cholecalciferol (Vitamin D3) [Vitamin D3] 50,000 unit PO WEEKLY 08/09/18 Atorvastatin Ca [Lipitor] 80 mg PO HS #30 tablet 08/12/18 Aspirin/Dipyridamole [Aggrenox -] 1 combo PO BID #60 capsule 05/01/19 Metoprolol Tartrate [Lopressor -] 25 mg PO BID #60 tablet 05/01/19 Review of Systems - Review of Systems Able to Perform ROS?: Yes Comments:: GENERAL/CONSTITUTIONAL: No fever or chills HEAD, EYES, EARS, NOSE AND THROAT: No change in vision. No change in hearing. No sore throat CARDIOVASCULAR: No chest pain or shortness of breath RESPIRATORY: Denies cough, hemoptysis GASTROINTESTINAL: No nausea, vomiting, diarrhea or constipation GENITOURINARY: No dysuria, frequency, or change in urination MUSCULOSKELETAL: No joint or muscle swelling or pain. No neck or back pain SKIN: No rash NEUROLOGIC: per HPI ENDOCRINE: No increased thirst. No abnormal weight change HEMATOLOGIC/LYMPHATIC: No anemia, easy bleeding, or history of blood clots ALLERGIC/IMMUNOLOGIC: No hives or skin allergy 04/28/19 09:33 Is the patient limited Vincentian proficient: No <Stevo Watt - Last Filed: 04/29/19 13:29> *Physical Exam - Vital Signs Last Vital Signs Temp Pulse Resp BP Pulse Ox 98.5 F 65 17 137/60 100 04/28/19 09:10 04/28/19 09:10 04/28/19 09:10 04/28/19 09:10 04/28/19 09:10 - Physical Exam GENERAL: Awake, alert, and oriented to person/place/time, in no acute distress HEAD: No signs of trauma, normoc ephalic, atraumatic EYES: PERRLA, EOMI, sclera anicteric, conjunctiva clear ENT: Hearing grossly normal, nares patent, oropharynx clear without exudates. No uvular deviation. Moist mucosa LUNGS: No distress, speaks in full sentences, clear to auscultation bilaterally HEART: Regular rate and rhythm, normal S1 and S2, no murmurs appreciated, peripheral pulses normal and equal bilaterally ABDOMEN: Soft, nontender, normoactive bowel sounds. No guarding, no rebound EXTREMITIES: Normal inspection, Normal range of motion, no edema. No clubbing or cyanosis NEUROLOGICAL: Decreased sensation to light touch over left lateral upper arm, dorsal forearm, and anterior left thigh; abn finger to nose LUE; strength 5/5 in BUE/BLE SKIN: Warm, Dry 04/28/19 09:33 <Stevo Watt - Last Filed: 04/29/19 13:29> - Vital Signs Last Vital Signs Temp Pulse Resp BP Pulse Ox 97.8 F 75 18 159/79 95 05/01/19 09:55 05/01/19 09:55 05/01/19 09:55 05/01/19 09:55 05/01/19 09:46 <Sean Casper - Last Filed: 05/01/19 19:51> ED Treatment Course - LABORATORY CBC & Chemistry Diagram: 04/29/19 05:35 04/29/19 05:35 <Stevo Watt - Last Filed: 04/29/19 13:29> - LABORATORY CBC & Chemistry Diagram: 04/29/19 05:35 04/29/19 05:35 - ADDITIONAL ORDERS Additional order review: 04/29/19 04/28/19 05:35 09:55 RBC 4.51 4.77 MCV 85.9 85.7 MCHC 34.4 33.7 RDW 12.9 12.9 MPV 9.1 9.1 Neutrophils % 66.2 Lymphocytes % 20.4 Monocytes % 9.4 Eosinophils % 3.1 Basophils % 0.9 - Medications Given in the ED: ED Medications Discontinued Medications Generic Name Dose Route Start Last Admin Trade Name Freq PRN Reason Stop Dose Admin Atorvastatin Calcium 80 mg 04/28/19 22:00 04/30/19 21:00 Lipitor - PO 80 mg HS RIO Administration Dipyridamole/Aspirin 1 combo 04/28/19 22:00 05/01/19 09:43 Aggrenox - PO 1 combo BID RIO Administration Metoprolol Tartrate 25 mg 04/30/19 22:00 05/01/19 09:10 Lopressor - PO 25 mg BID RIO Administration <Sean Casper - Last Filed: 05/01/19 19:51> Medical Decision Making - Medical Decision Making The pt is a 74M w/ a history of DM and previous CVA (residual left peripheral vision deficit) who presents for evaluation of 3 days of LUE numbness/tingling, trouble with LUE coordination, L ant thigh numbness, and trouble with balance. ED Course Labs sent ECG CTA head and neck ECG w/ sinus bradycarida; HR 55; no KENDRICK CTA head and neck w/o acute abn No leukocytosis No anemia Lytes unremkarable No YVONNE Trop I neg Plan for admission for further evaluation to r/o stroke 04/29/19 13:31 <Stevo Watt - Last Filed: 04/29/19 13:29> Discharge - Discharge Information Problems reviewed: Yes - Admission Yes <Stevo Watt - Last Filed: 04/29/19 13:29> <Sean Casper - Last Filed: 05/01/19 19:51> - Discharge Information Clinical Impression/Diagnosis: Paresthesia, Hx of CABG Cerebrovascular accident (CVA) Qualifiers: CVA mechanism: unspecified Qualified Code(s): I63.9 - Cerebral infarction, unspecified Condition: Good Disposition: HOME
[2019-04-28 10:07] LABS: BASO % 0.9 % (0-2.0); EOS % 3.1 % (0-4.5); HEMATOCRIT 40.9 % (35.4-49); HEMOGLOBIN 13.8 GM/dL (11.7-16.9); LYMPH % 20.4 % (8-40); MCH 28.9 pg (25.7-33.7); MCHC 33.7 g/dl (32.0-35.9); MEAN CELL VOLUME 85.7 fl (80-96); MEAN PLT VOLUME 9.1 fl (7.5-11.1); MONO % 9.4 % (3.8-10.2); NEUT % 66.2 % (42.8-82.8); PLATELET COUNT 182 K/MM3 (134-434); RBC 4.77 M/mm3 (4.00-5.60); RDW 12.9 % (11.9-15.9)
--- NOTE | 2019-04-28 10:26 | PDOC ---
Documentation entered by Lucas Werner SCRIBE, acting as scribe for Sean Casper MD. Sean Casper MD: This documentation has been prepared by the Alphonso patten Nirvannie, SCRIBE, under my direction and personally reviewed by me in its entirety. I confirm that the documentation accurately reflects all work, treatment, procedures, and medical decision making performed by me. Attending Attestation - Resident Resident Name: [email or web address] - ED Attending Attestation I have performed the following: I have examined & evaluated the patient, The case was reviewed & discussed with the resident, I agree w/resident's findings & plan, Exceptions are as noted - HPI HPI: 04/28/19 10:17 The patient is a 74 year old male, with a significant past medical history of mca cva (on plavix), htn, hld, iddm,s/p bypass (15) who presents to the emergency department with 3 days of posterior left-sided neck pain with radiation to the left arm and gait ataxia. Patient notes associated left arm paresthesias and weakness with associated tingling sensation to the anterior thigh. Patient denies any recent trauma to the extremities, neck, or back. Denies any other symptoms including chest pain, shortness of breath, palpitations, lightheadedness, new visual changes, fever, chills, cough, nausea , vomiting, lower back pain. Allergies: PCN, Sulfa Past surgical history: None reported. Social History: Nonsmoker. Denies EtOH use and recreational drug use. Primary Care Physician:Dr. Rollins [place] Police Lieutenant: Dr. Malcolm Horse Identifier: Dr. Plascencia - Physicial Exam PE: 04/28/19 10:20 GENERAL: The patient is awake, alert, and fully oriented, Nontoxic - in no acute distress. HEAD: Normocephalic, atraumatic.c EYES: extraocular movements intact, sclera anicteric, conjunctiva clear. ENT: Normal voice, Moist mucous membranes. NECK: Normal range of motion, supple, no focal midline, paracervical parathoracic tenderness. No areas of induration LUNGS: Breath sounds equal, clear to auscultation bilaterally. No wheezes, no rhonchi, no rales. HEART: Regular rate and rhythm, normal S1 and S2 without murmur, rub or gallop. ABDOMEN: Soft, nontender, insulin pump in place, no guarding, no rebound. No CVA tenderness EXTREMITIES: Normal range of motion, no edema. PSYCH: Normal mood, normal affect. SKIN: Warm, Dry, normal turgor, NEURO: Mental status: The patient is oriented x3. Cranial nerves: Cranial nerves II through XII are intact, left hemianopsia Motor: The upper extremities are 5 over 5 in all muscle groups. The lower extremities are 5 over 5 in all muscle groups. Negative pronator drift Sensation: Sensation intact throughout except for on the lateral aspect of left thigh Cerebellar: Abnormal pbazbs-[id number] on left upper extremity, normal rapid alternating movements, normal heel-to-toe. Strength symmetric in upper and lower extremities. Reflexes: 2+ and symmetric in the upper and lower extremities. Gait: Deferred - Medical Decision Making 04/28/19 10:03 74y M hx of MCA cva on plavix (no residual weaknesS) presents with 3 days of L posterior neck pain radiating down his shoulder and L sided arm weakness/ tingling on lateral/dorsal aspect associated with tingling on his anterior thigh /imbalance. Denies any recent trauama/falls/injuries/manipulation. The patient's physical exam is notable for abnormal finger-nose in the left upper extremity as well as a decrease sensation on the left lateral thigh. Concern for possible CVA, consider dissection The patient does note he is compliant with his aspirin and Plavix. Will obtain blood work, CT/CTA Heart Score/ECG Review - ECG Impressions Comment:: 04/28/19 14:19 Twelve-lead EKG was performed and reviewed by me. There is normal sinus rhythm with a rate of 55 The axis is normal. Sinus bradycardia
[2019-04-28 10:29] LABS: INR 0.96 (0.83-1.09); PROTHROMBIN TIME (PATIENT) 11.3 SEC (9.7-13.0)
[2019-04-28 10:42] LABS: ALBUMIN 3.8 g/dl (3.4-5.0); ALK PHOS 82 U/L (45-117); ANION GAP 5 MMOL/L (8-16); BILIRUBIN,TOTAL 1.4 mg/dL (0.2-1); BLOOD UREA NITROGEN 19.8 mg/dL (7-18); CALCIUM 8.9 mg/dL (8.5-10.1); CHLORIDE 106 mmol/L (98-107); CHOLESTEROL 124 mg/dL (50-200); CO2 30 mmol/L (21-32); CREATININE 1.2 mg/dL (0.55-1.3); GLUCOSE,RANDOM 209 mg/dL (74-106); HDL CHOLESTEROL 46 mg/dL (40-60); LDL CHOLESTEROL (ONLY SJRH) 64 mg/dL (5-100); POTASSIUM 4.4 mmol/L (3.5-5.1); SGOT/AST 18 U/L (15-37); SGPT/ALT 26 U/L (13-61); SODIUM 140 mmol/L (136-145); TRIGLYCERIDES 94 mg/dL (0-150)
--- NOTE | 2019-04-28 14:55 | EKG ---
Test Reason : Blood Pressure : / mmHG Vent. Rate : 055 BPM Atrial Rate : 055 BPM P-R Int : 162 ms QRS Dur : 088 ms QT Int : 438 ms P-R-T Axes : 017 038 045 degrees QTc Int : 419 ms SINUS BRADYCARDIA SEPTAL INFARCT , AGE UNDETERMINED ABNORMAL ECG WHEN COMPARED WITH ECG OF 09-AUG-2018 16:36, NO SIGNIFICANT CHANGE WAS FOUND Confirmed by Alexey Bro ([id number]) on 04/28/2019 2:55:06 PM Referred By: Confirmed By:Alexey Bro
--- NOTE | 2019-04-28 14:57 | CON.NEURO ---
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 Patient was stabilized in the emergency room the patient decision was done to rule out posterior circulation CVA. 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 Cardio/Vascular: Yes: CAD (-S/P CABG), HTN, Hyperlipdemia, Other (pad) Endocrine: Yes: Diabetes Mellitus (on insulin pump) - Past Surgical History Past Surgical History: Yes: Amputation (tip of right first toe), CABG (in 12/31) - Alcohol/Substance Use Hx Alcohol Use: No History of Substance Use: reports: None - Smoking History Smoking history: Never smoked Have you smoked in the past 12 months: No Aproximately how many cigarettes per day: 80 If you are a former smoker, when did you quit?: years ago - Social History ADL: Independent History of Recent Travel: No Home Medications - Allergies Allergies/Adverse Reactions: Allergies Allergy/AdvReac Type Severity Reaction Status Date / Time Penicillins Allergy Swelling Verified 04/28/19 09:10 Sulfa (Sulfonamide Allergy Swelling Verified 04/28/19 09:10 Antibiotics) - Home Medications Home Medications: Ambulatory Orders Subcutaneous Insulin Pump [Insulin Pump] 1 each MC QID 07/21/11 Metoprolol Tartrate [Lopressor -] 25 mg PO BID 06/23/15 Cholecalciferol (Vitamin D3) [Vitamin D3] 50,000 unit PO WEEKLY 08/09/18 Aspirin/Dipyridamole [Aggrenox -] 1 combo PO BID #60 capsule 08/12/18 Atorvastatin Ca [Lipitor] 80 mg PO HS #30 tablet 08/12/18 Rosalee Chewable Aspirin 81 mg PO DAILY 04/29/19 Clopidogrel Bisulfate [Plavix -] 75 mg PO HS 04/29/19 Physical Exam-Neuro Vital Signs: Vital Signs Temperature 98.5 F 04/28/19 09:10 Pulse Rate 65 04/28/19 09:10 Respiratory Rate 17 04/28/19 09:10 Blood Pressure 137/60 04/28/19 09:10 O2 Sat by Pulse Oximetry (%) 100 04/28/19 09:10 Labs: CBC, BMP 04/28/19 09:55 04/28/19 09:55 INR, PTT INR 0.96 (0.83-1.09) 04/28/19 09:55 - Neuro Exam Level Of Consciousness: Yes: Oriented to Person, Oriented to Place, Oriented to Time Eyes: Yes: PERRLA Speech: WNL Dominant Hand: Right Cranial Nerves II-XII Intact: No Gag: Present DTR's: 0 Right Brachioradialis, 1+ Left Bicep, 1+ Right Bicep, 1+ Left Tricep, 1 + Right Tricep Babinski: Present Response to light touch: Abnormal Response to pain prick: Abnormal Response to temperature: Abnormal Motor Strength: 3/5: Left Arm, Right Arm, Left Leg, Right Leg Gait: Deferred Imaging - Results Cat Scan: Image Reviewed Problem List - Problems (1) Cerebrovascular accident (CVA) Code(s): I63.9 - CEREBRAL INFARCTION, UNSPECIFIED Assessment/Plan continue aspirin and Plavix. MRI of the brain without contrast. MRA of the head and neck. Fall precautions Henok Ferreira MD
--- NOTE | 2019-04-28 16:43 | HP ---
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 Patient was stabilized in the emergency room the patient decision was done to rule out posterior circulation CVA. 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 Cardiovascular: Yes: CAD (-S/P CABG), HTN, Hyperlipdemia, Other (pad) Endocrine: Yes: Diabetes Mellitus (on insulin pump) - Past Surgical History Past Surgical History: Yes: Amputation (tip of right first toe), CABG (in 12/31) - Smoking History Smoking history: Never smoked Have you smoked in the past 12 months: No Aproximately how many cigarettes per day: 80 If you are a former smoker, when did you quit?: years ago - Alcohol/Substance Use Hx Alcohol Use: No History of Substance Use: reports: None - Social History ADL: Independent History of Recent Travel: No Home Medications - Allergies Allergies/Adverse Reactions: Allergies Allergy/AdvReac Type Severity Reaction Status Date / Time Penicillins Allergy Swelling Verified 04/28/19 09:10 Sulfa (Sulfonamide Allergy Swelling Verified 04/28/19 09:10 Antibiotics) - Home Medications Home Medications: Ambulatory Orders Subcutaneous Insulin Pump [Insulin Pump] 1 each MC QID 07/21/11 Metoprolol Tartrate [Lopressor -] 25 mg PO BID 06/23/15 Cholecalciferol (Vitamin D3) [Vitamin D3] 50,000 unit PO WEEKLY 08/09/18 Aspirin/Dipyridamole [Aggrenox -] 1 combo PO BID #60 capsule 08/12/18 Atorvastatin Ca [Lipitor] 80 mg PO HS #30 tablet 08/12/18 Review of Systems - Review of Systems Constitutional: reports: No Symptoms Eyes: reports: No Symptoms HENT: reports: No Symptoms Neck: reports: No Symptoms Cardiovascular: reports: No Symptoms Respiratory: reports: No Symptoms Gastrointestinal: reports: No Symptoms Genitourinary: reports: No Symptoms Neurological: reports: Change in LOC, Headache Physical Examination Vital Signs: Vital Signs Temperature 98.5 F 04/28/19 09:10 Pulse Rate 65 04/28/19 09:10 Respiratory Rate 17 04/28/19 09:10 Blood Pressure 137/60 04/28/19 09:10 O2 Sat by Pulse Oximetry (%) 100 04/28/19 09:10 Constitutional: Yes: Mild Distress Cardiovascular: Yes: Regular Rate and Rhythm Respiratory: Yes: WNL Gastrointestinal: Yes: WNL Musculoskeletal: Yes: WNL Extremities: Yes: WNL Edema: No Integumentary: Yes: WNL Wound/Incision: Yes: Clean/Dry Neurological: Yes: WNL ...Motor Strength: WNL Psychiatric: Yes: WNL Labs: CBC, BMP 04/28/19 09:55 04/28/19 09:55 Imaging - Results Cat Scan: Report Reviewed Problem List - Problems (1) Arteriosclerotic heart disease (ASHD) Code(s): I25.10 - ATHSCL HEART DISEASE OF [place] CORONARY ARTERY W/O ANG PCTRS (2) Cerebrovascular accident (CVA) Code(s): I63.9 - CEREBRAL INFARCTION, UNSPECIFIED (3) Diabetes Code(s): E11.9 - TYPE 2 DIABETES MELLITUS WITHOUT COMPLICATIONS (4) Hx of CABG Code(s): Z95.1 - PRESENCE OF AORTOCORONARY BYPASS GRAFT (5) Hyperlipidemia Code(s): E78.5 - HYPERLIPIDEMIA, UNSPECIFIED Qualifiers: Hyperlipidemia type: unspecified hyperlipidemia (6) Hypertriglyceridemia Code(s): E78.1 - PURE HYPERGLYCERIDEMIA (7) Peripheral vascular disease Code(s): I73.9 - PERIPHERAL VASCULAR DISEASE, UNSPECIFIED (8) Type 2 diabetes mellitus treated with insulin Code(s): E11.9 - TYPE 2 DIABETES MELLITUS WITHOUT COMPLICATIONS; Z79.4 - SENIOR CARE (CURRENT) USE OF INSULIN Assessment/Plan CVA VERSUS TIA CT HEAD AND NECK CTA NEGATIVE MRI BRAIN IN MORNING NEURO CHECKS FALL RISKS PT EVAL DIABETIC DIET NEURO EVAL APPRECIATED
[2019-04-28] MEDS: ASPIRIN/DIPYRIDAMOLE 25 MG/200 MG CAPSULE PO SCH (22:47)
[2019-04-28] MEDS: ATORVASTATIN CA 80 MG TABLET (FP) PO SCH (22:47)
[2019-04-29 06:58] LABS: HEMATOCRIT 38.8 % (35.4-49); HEMOGLOBIN 13.3 GM/dL (11.7-16.9); MCH 29.5 pg (25.7-33.7); MCHC 34.4 g/dl (32.0-35.9); MEAN CELL VOLUME 85.9 fl (80-96); MEAN PLT VOLUME 9.1 fl (7.5-11.1); PLATELET COUNT 155 K/MM3 (134-434); RBC 4.51 M/mm3 (4.00-5.60); RDW 12.9 % (11.9-15.9); WHITE BLOOD COUNT 6.6 K/mm3 (4.0-10.0)
[2019-04-29 07:19] LABS: ALBUMIN 3.4 g/dl (3.4-5.0); BILIRUBIN,TOTAL 1.7 mg/dL (0.2-1); BLOOD UREA NITROGEN 22.2 mg/dL (7-18); CALCIUM 8.6 mg/dL (8.5-10.1); CREATININE 1.1 mg/dL (0.55-1.3); POTASSIUM 4.1 mmol/L (3.5-5.1); TOT PROT 6.3 g/dl (6.4-8.2)
--- NOTE | 2019-04-29 08:42 | PN ---
Progress Note, Physician Chief Complaint: AWAKE ALERT EATING BREAKFAST COMFORTABLE C/O MOSTLY LEFT ARM NUMBNESS AND PAIN DENIES SLURRED SPEECH AND IS SPEAKING CLEARLY AT THIS TIME NO CHANGE OF VISION +URINATIONS NO BLOOD - Current Medication List Current Medications: Active Medications Atorvastatin Calcium (Lipitor -) 80 mg PO HS [facility] Last Admin: 04/28/19 22:47 Dose: 80 mg Dipyridamole/Aspirin (Aggrenox -) 1 combo PO BID [facility] Last Admin: 04/28/19 22:47 Dose: 1 combo - Objective Vital Signs: Vital Signs Temperature 97.9 F 04/29/19 04:51 Pulse Rate 87 04/29/19 04:51 Respiratory Rate 20 04/29/19 04:51 Blood Pressure 124/59 L 04/29/19 04:51 O2 Sat by Pulse Oximetry (%) 98 04/28/19 22:00 Constitutional: Yes: Mild Distress Cardiovascular: Yes: Pulse Irregular Respiratory: Yes: CTA Bilaterally Gastrointestinal: Yes: Soft Genitourinary: Yes: WNL Edema: No Integumentary: Yes: WNL Wound/Incision: Yes: Clean/Dry Neurological: Yes: WNL ...Motor Strength: WNL Psychiatric: Yes: WNL Labs: CBC, BMP 04/29/19 05:35 04/29/19 05:35 INR, PTT INR 0.96 (0.83-1.09) 04/28/19 09:55 Problem List - Problems (1) Arteriosclerotic heart disease (ASHD) Code(s): I25.10 - ATHSCL HEART DISEASE OF [place] CORONARY ARTERY W/O ANG PCTRS (2) Cerebrovascular accident (CVA) Code(s): I63.9 - CEREBRAL INFARCTION, UNSPECIFIED Qualifiers: CVA mechanism: unspecified Qualified Code(s): I63.9 - Cerebral infarction, unspecified (3) Diabetes Code(s): E11.9 - TYPE 2 DIABETES MELLITUS WITHOUT COMPLICATIONS (4) Hx of CABG Code(s): Z95.1 - PRESENCE OF AORTOCORONARY BYPASS GRAFT (5) Hyperlipidemia Code(s): E78.5 - HYPERLIPIDEMIA, UNSPECIFIED Qualifiers: Hyperlipidemia type: unspecified hyperlipidemia (6) Hypertriglyceridemia Code(s): E78.1 - PURE HYPERGLYCERIDEMIA (7) Peripheral vascular disease Code(s): I73.9 - PERIPHERAL VASCULAR DISEASE, UNSPECIFIED (8) Type 2 diabetes mellitus treated with insulin Code(s): E11.9 - TYPE 2 DIABETES MELLITUS WITHOUT COMPLICATIONS; Z79.4 - LONGTERM (CURRENT) USE OF INSULIN Assessment/Plan SUBACUTE CVA NEUROLOGY F/U PT NEEDED OR EVAL LIPID PANEL REVIEWED ON STATIN THERAPY HTN CONTROLLED SNF 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
[2019-04-29] MEDS ORDERED: PT OWN MED DRAWER 7, Y5N ONE ×2 (09:19→22:11)
[2019-04-29] MEDS: ASPIRIN/DIPYRIDAMOLE 25 MG/200 MG CAPSULE PO SCH ×2 (09:23→22:43)
--- NOTE | 2019-04-29 10:44 | PN ---
Progress Note, Physician History of Present Illness: events noted Chart rviwed Alert Awake Oriented Follwos commands - Current Medication List Current Medications: Active Medications Atorvastatin Calcium (Lipitor -) 80 mg PO HS [facility] Last Admin: 04/28/19 22:47 Dose: 80 mg Dipyridamole/Aspirin (Aggrenox -) 1 combo PO BID [facility] Last Admin: 04/29/19 09:23 Dose: 1 combo - Objective Vital Signs: Vital Signs Temperature 97.9 F 04/29/19 04:51 Pulse Rate 87 04/29/19 04:51 Respiratory Rate 04/29/19 04:51 Blood Pressure 124/59 L 04/29/19 04:51 O2 Sat by Pulse Oximetry (%) 98 04/28/19 22:00 Constitutional: Yes: Well Nourished Eyes: Yes: WNL HENT: Yes: WNL Neurological: Yes: Alert, Oriented, Babinski negative ...Motor Strength: WNL Labs: CBC, BMP 04/29/19 05:35 04/29/19 05:35 INR, PTT INR 0.96 (0.83-1.09) 04/28/19 09:55 Problem List - Problems (1) Cerebrovascular accident (CVA) Assessment/Plan: MRI brain now ASA and Plavix B12 level Fall precautons Code(s): I63.9 - CEREBRAL INFARCTION, UNSPECIFIED
--- NOTE | 2019-04-29 10:48 | CON.CARD ---
Consult Consult Specialty:: Cardiology Referred by:: Dr. Luna Reason for Consultation:: primary team requested, possible CVA - History of Present Illness Chief Complaint: numbness unsteady gait History of Present Illness: 74 year old man with a pmh CVA on asa and plavix, htn, hld, dmii, CAD s/p CABG 2014 [facility], ILR implant admitted with neurologic symptoms with L sided neck pain radiating to the L arm with L arm numbness and weaknessand gait ataxia. pt in the process of neuro workup. MRI is pending. pt ambulatory in the hallway this am with PT. No chest pain, sob, palpitations. - History Source History Provided By: Patient, Medical Record Limitations to Obtaining History: No Limitations - Past Medical History MEDICAL COMMUNICATION SPECIALIST: Yes: CVA Cardio/Vascular: Yes: CAD (-S/P CABG), HTN, Hyperlipdemia, Other (pad) Endocrine: Yes: Diabetes Mellitus (on insulin pump) - Past Surgical History Past Surgical History: Yes: Amputation (tip of right first toe), CABG (in 12/31) - Alcohol/Substance Use Hx Alcohol Use: No History of Substance Use: reports: None - Smoking History Smoking history: Never smoked Have you smoked in the past 12 months: No Aproximately how many cigarettes per day: 80 If you are a former smoker, when did you quit?: years ago - Social History ADL: Independent History of Recent Travel: No Home Medications - Allergies Allergies/Adverse Reactions: Allergies Allergy/AdvReac Type Severity Reaction Status Date / Time Penicillins Allergy Swelling Verified 04/28/19 09:10 Sulfa (Sulfonamide Allergy Swelling Verified 04/28/19 09:10 Antibiotics) - Home Medications Home Medications: Ambulatory Orders Subcutaneous Insulin Pump [Insulin Pump] 1 each MC QID 07/21/11 Metoprolol Tartrate [Lopressor -] 25 mg PO BID 06/23/15 Cholecalciferol (Vitamin D3) [Vitamin D3] 50,000 unit PO WEEKLY 08/09/18 Aspirin/Dipyridamole [Aggrenox -] 1 combo PO BID #60 capsule 08/12/18 Atorvastatin Ca [Lipitor] 80 mg PO HS #30 tablet 08/12/18 Rosalee Chewable Aspirin 81 mg PO DAILY 04/29/19 Clopidogrel Bisulfate [Plavix -] 75 mg PO HS 04/29/19 Family Medical History Family History: Denies Review of Systems - Review of Systems Constitutional: reports: Weakness Eyes: denies: No Symptoms, Blind Spots, Blurred Vision, Double Vision, Eye Pain , Floaters, Photophobia, Recent Change in Vision, Other HENT: denies: No Symptoms, Difficult Swallowing, Ear Discharge, Ear Pain, Epistaxis, Gingival Bleeding, Hearing Loss, Mouth Swelling, Nasal Congestion, Ocular Prosthesis, Throat Pain, Toothache, Ringing in Ears, Other Neck: reports: Pain on Movement. denies: No Symptoms, Decreased ROM, Lumps, Stiffness, Swollen Glands, Tenderness, Other Cardiovascular: denies: No Symptoms, Chest Pain, Edema, Palpitations, Shortness of Breath, Other Respiratory: denies: No Symptoms, Cough, Exercise Intolerance, Hemoptysis, Orthopnea, PND, Snoring, SOB, SOB on Exertion, Wheezing, Other Gastrointestinal: denies: No Symptoms, Abdominal Pain, Bloating, Constipation, Diarrhea, Dysphagia, Indigestion, Melena, Nausea, Rectal Bleeding, Vomiting, Vomiting Blood, Other Genitourinary: denies: No Symptoms, Burning, Discharge, Dysuria, Flank Pain, Frequency, Hematuria, Incontinence, Lesions, Menses, Pain, Testicular Mass, Testicular Pain, Testicular Swelling, Urgency, Vaginal Bleeding, Other Breasts: denies: No Symptoms Reported, See HPI, Breast Implants, Discharge from Nipple, Lumps, Pain, Skin Changes, Other Musculoskeletal: reports: Muscle Weakness. denies: No Symptoms, Back Pain, Crepitus, Decreased ROM, Extremity Pain, Joint Pain, Joint Swelling, Muscle Pain , Muscle Cramps, Other Integumentary: denies: No Symptoms, Blister, Bruising, Change in Color, Eczema, Erythema, Incision, Lesions, Lump, Pallor, Pruritis, Rash, Wound, Other Neurological: reports: Numbness, Unsteady Gait, Weakness. denies: No Symptoms, Change in LOC, Change in Speech, Confusion, Dizziness, Headache, Incoordination , Parasthesia, Pre-Existing Deficit, Seizure, Syncope, Tremors, Other Endocrine: denies: No Symptoms, Excessive Sweating, Flushing, Increased Hunger, Increased Thirst, Intolerance to Cold, Intolerance to Heat, Unexplained Weight Gain, Unexplained Weight Loss, Other Hematology/Lymphatic: denies: No Symptoms, Easily Bruised, Excessive Bleeding, Swollen Glands, Other Psychiatric: denies: No Symptoms, Altered Sleep Pattern, Anxiety, Depression, Hallucinations, Panic, Paranoia, Suicidal, Other - Risk Factors Known Risk Factors: Yes: Age, Diabetes Mellitus, Hypercholesterolemia, Hypertension, Prior FL /Emb Stroke Vital Signs: Vital Signs Temperature 97.9 F 04/29/19 04:51 Pulse Rate 87 04/29/19 04:51 Respiratory Rate 04/29/19 04:51 Blood Pressure 124/59 L 04/29/19 04:51 O2 Sat by Pulse Oximetry (%) 98 04/28/19 22:00 Constitutional: Yes: No Distress, Calm Eyes: Yes: Conjunctiva Clear, EOM Intact HENT: Yes: Atraumatic, Normocephalic Neck: Yes: Supple, Trachea Midline Respiratory: Yes: Regular, CTA Bilaterally. No: Rales, Rhonchi, Wheezes Gastrointestinal: Yes: Normal Bowel Sounds, Soft Cardiovascular: Yes: Regular Rate and Rhythm. No: Bradycardia, Tachycardia, Pulse Irregular, Gallop, Rub, Varicosities JVD: No Carotid Bruit: No PMI: Non-Displaced Heart Sounds: Yes: S1, S2. No: Split S2, S3, S4, Clicks, Gallop, Rub, Bruit Murmur: No: Systolic Murmur, Diastolic Murmur Extremities: Yes: WNL Edema: No Peripheral Pulses WNL: Yes Peripheral Pulses: 2+ Left Doralis Pedis, 2+ Right Dorsalis Pedis Neurological: Yes: Alert, Oriented Psychiatric: Yes: Alert, Oriented - Other Data Labs, Other Data: CBC, BMP 04/29/19 05:35 04/29/19 05:35 INR, PTT INR 0.96 (0.83-1.09) 04/28/19 09:55 ekg-sinus elan 55bpm, possible septal infarct Imaging - Results Chest X-ray: Report Reviewed, Image Reviewed EKG: Report Reviewed, Image Reviewed Other: Report Reviewed, Image Reviewed (tele-no sig arrhythmias recorded) Assessment/Plan 74 year old man with a pmh CVA on asa and plavix, htn, hld, dmii, CAD s/p CABG 2014 [facility], ILR implant admitted with neurologic symptoms with L sided neck pain radiating to the L arm with L arm numbness and weaknessand gait ataxia. pt in the process of neuro workup. MRI is pending. pt ambulatory in the hallway this am with PT. No chest pain, sob, palpitations. Neuro -neuro workup in progress -MRI pending -etiology of symptoms not yet identified -no indication of cardiac source at this time -ekg sinus, tele sinus with no arrhythmias -if determined that pt does indeed have a CVA would recc to request ILR interrogation, can contact [facility] for details of device (medtronic vs biotronik) CVA -h/o CABG -ILR in place -follows with Dr. Anne at [facility] -no current cardiac issues identified -can contact Dr. Anne office to obtain further details of prior cardiac history
[2019-04-29] MEDS: ATORVASTATIN CA 80 MG TABLET (FP) PO SCH (22:44)
--- NOTE | 2019-04-30 08:18 | PN ---
Progress Note, Physician - Current Medication List Current Medications: Active Medications Atorvastatin Calcium (Lipitor -) 80 mg PO HS [facility] Last Admin: 04/29/19 22:44 Dose: 80 mg Dipyridamole/Aspirin (Aggrenox -) 1 combo PO BID [facility] Last Admin: 04/29/19 22:43 Dose: 1 combo - Objective Vital Signs: Vital Signs Temperature 97.7 F 04/30/19 01:47 Pulse Rate 63 04/30/19 01:47 Respiratory Rate 20 04/30/19 01:47 Blood Pressure 116/74 04/30/19 06:58 O2 Sat by Pulse Oximetry (%) 97 04/29/19 09:00 Cardiovascular: Yes: Regular Rate and Rhythm Respiratory: Yes: Regular, CTA Bilaterally Gastrointestinal: Yes: Normal Bowel Sounds, Soft Labs: CBC, BMP 04/29/19 05:35 04/29/19 05:35 INR, PTT INR 0.96 (0.83-1.09) 04/28/19 09:55 Problem List - Problems (1) Cerebrovascular accident (CVA) Assessment/Plan: mri noted-subacute cva on statin b-blockers aggrenox Code(s): I63.9 - CEREBRAL INFARCTION, UNSPECIFIED Qualifiers: CVA mechanism: unspecified Qualified Code(s): I63.9 - Cerebral infarction, unspecified (2) Arteriosclerotic heart disease (ASHD) Assessment/Plan: same meds echo Code(s): I25.10 - ATHSCL HEART DISEASE OF [place] CORONARY ARTERY W/O ANG PCTRS (3) Diabetes Code(s): E11.9 - TYPE 2 DIABETES MELLITUS WITHOUT COMPLICATIONS (4) Hyperlipidemia Code(s): E78.5 - HYPERLIPIDEMIA, UNSPECIFIED Qualifiers: Hyperlipidemia type: unspecified hyperlipidemia
[2019-04-30] MEDS ORDERED: PT OWN MED DRAWER 7, Y5N ONE ×2 (09:14→20:55)
[2019-04-30] MEDS: ASPIRIN/DIPYRIDAMOLE 25 MG/200 MG CAPSULE PO SCH ×2 (11:25→21:00)
--- NOTE | 2019-04-30 12:16 | PN ---
Progress Note, Physician Chief Complaint: Neck pain and left arm numbness History of Present Illness: This is a 74 year old male with a PMH of a CVA (n Aggrenox), HTN, HLD, DM2, CAD s/p CABG 2014 at [facility], and an ILR implant. He was admitted with neurological symptoms with L sided neck pain radiating to the L arm with L arm numbness and weaknessand gait ataxia. Neuro eval in progress. No chest pain, sob, or palpitations. Echocardiogram 04/30/2019 Borderline asymmetric LVH Normal LV function, EF 60% Mild MR Mild TR RVSP 35 mmHg Mild AV thickening - Current Medication List Current Medications: Active Medications Atorvastatin Calcium (Lipitor -) 80 mg PO HS [facility] Last Admin: 04/29/19 22:44 Dose: 80 mg Dipyridamole/Aspirin (Aggrenox -) 1 combo PO BID [facility] Last Admin: 04/30/19 11:25 Dose: 1 combo Metoprolol Tartrate (Lopressor -) 25 mg PO BID [facility] - Objective Vital Signs: Vital Signs Temperature 97.7 F 04/30/19 01:47 Pulse Rate 63 04/30/19 01:47 Respiratory Rate 20 04/30/19 01:47 Blood Pressure 116/74 04/30/19 06:58 O2 Sat by Pulse Oximetry (%) 97 04/30/19 09:00 Constitutional: Yes: Well Nourished, No Distress Eyes: Yes: WNL HENT: Yes: WNL Neck: Yes: WNL Cardiovascular: Yes: Regular Rate and Rhythm, S1, S2 Respiratory: Yes: CTA Bilaterally Gastrointestinal: Yes: Soft Extremities: Yes: WNL Edema: No Neurological: Yes: Alert, Oriented Labs: CBC, BMP 04/29/19 05:35 04/29/19 05:35 INR, PTT INR 0.96 (0.83-1.09) 04/28/19 09:55 Assessment/Plan 74 year old male with a PMH of a CVA (on Aggrenox), HTN, HLD, DM2, CAD s/p CABG 2014 at [facility], and an ILR implant. He was admitted with neurological symptoms with L sided neck pain radiating to the L arm with L arm numbness and weakness and gait ataxia. Neuro eval in progress. No chest pain, sob, or palpitations. MRI showed sub acute infarcts -EKG sinus, tele sinus with no arrhythmias -Will look into getting the ILR interrogated Cardiovascular -h/o CABG -Continue statin therapy -follows with Dr. Anne at [facility]
--- NOTE | 2019-04-30 12:21 | ECHO ---
Version: 1 Name: MATILDA [place] Exam: Adult Echocardiogram Study Date: 04/30/2019, 9:41 AM Age: 74 Years MMode/2D Measurements & Calculations IVSd: 1.48 cm LVIDs: 2.8 cm LVIDd: 4.1 cm LVPWd: 1.10 cm ACS: 1.98 cm Ao root diam: 2.38 cm LVOT diam: 2.00 cm LA dimension: 4.0 cm Doppler Measurements & Calculations MV E max antonio: 59.7 cm/sec Med E/e': 10.5 MV A max antonio: 81.9 cm/sec Med Peak E' Antonio: 5.7 cm/sec MV E/A: 0.73 Lat E/e': 8.3 Lat Peak E' Antonio: 7.2 cm/sec MR max P.9 mmHg Ao max P.8 mmHg JAYA(I,D): 2.6 cm Ao mean P.15 mmHg LV V1 mean: 54.9 cm/sec Ao V2 max: 97.1 cm/sec LV V1 mean P.29 mmHg TR max antonio: 213.6 cm/sec TR max P.9 mmHg Procedure A complete two-dimensional transthoracic echocardiogram was performed (2D, M-mode, Doppler and color flow Doppler). The patient was in normal sinus rhythm during the exam. Left Ventricle The left ventricle is normal in size. There is borderline asymmetric left ventricular hypertrophy. T he left ventricular ejection fraction is normal. Ejection Fraction = 60%. E/A reversal consistent with but n ot diagnostic of poor LV compliance. The left ventricular wall motion is normal. Right Ventricle The right ventricle is normal in size and function. Atria Normal left and right atrial size and function. Mitral Valve There is mild mitral annular calcification. There is trace to mild mitral regurgitation. Tricuspid Valve The tricuspid valve is normal in structure and function. There is Trace to mild tricuspid regurgitat ion. Right ventricular systolic pressure is 35 mmhg. Assuming the RA pressure is 5 mmHg. Aortic Valve There is mild aortic valve thickening. Pulmonic Valve The pulmonic valve is not well visualized. Great Vessels The aortic root is normal size. Pericardium/Pleura There is no pericardial effusion. There is no pleural effusion. Summary Statements There is borderline asymmetric left ventricular hypertrophy. The left ventricular ejection fraction is normal. Ejection Fraction = 60%. There is mild mitral annular calcification. There is trace to mild mitral regurgitation. There is Trace to mild tricuspid regurgitation. Right ventricular systolic pressure is 35 mmhg. There is mild aortic valve thickening. MD Tiburcio Christianson 04/30/2019, 12:21 PM Ordering Physician: Henok Ferreira Performed By: Ann Velázquez
[2019-04-30] MEDS: ATORVASTATIN CA 80 MG TABLET (FP) PO SCH (21:00)
[2019-04-30] MEDS: METOPROLOL TARTRATE 25 MG TABLET (FP) PO SCH (21:00)
--- NOTE | 2019-05-01 08:49 | DS ---
Physical Examination Vital Signs: Vital Signs Temperature 97.5 F L 05/01/19 01:58 Pulse Rate 68 05/01/19 06:00 Respiratory Rate 20 05/01/19 06:00 Blood Pressure 134/48 L 05/01/19 06:00 O2 Sat by Pulse Oximetry (%) 97 04/30/19 21:00 Cardiovascular: Yes: Regular Rate and Rhythm Respiratory: Yes: Regular, CTA Bilaterally Gastrointestinal: Yes: Normal Bowel Sounds, Soft Labs: CBC, BMP 04/29/19 05:35 04/29/19 05:35 Discharge Summary Problems reviewed: Yes Reason For Visit: DM,HX OF CORONARY ARTERY BYPASS SURG,CVA Current Active Problems Cerebrovascular accident (CVA) (Acute) Hx of CABG (Acute) Paresthesias (Acute) Hospital Course: Problems (1) Cerebrovascular accident (CVA) Assessment/Plan: mri noted-subacute cva on statin b-blockers aggrenox Code(s): I63.9 - CEREBRAL INFARCTION, UNSPECIFIED Qualifiers: CVA mechanism: unspecified Qualified Code(s): I63.9 - Cerebral infarction, unspecified (2) Arteriosclerotic heart disease (ASHD) Assessment/Plan: same meds echo Code(s): I25.10 - ATHSCL HEART DISEASE OF [place] CORONARY ARTERY W/O ANG PCTRS (3) Diabetes Code(s): E11.9 - TYPE 2 DIABETES MELLITUS WITHOUT COMPLICATIONS (4) Hyperlipidemia Code(s): E78.5 - HYPERLIPIDEMIA, UNSPECIFIED Qualifiers: Hyperlipidemia type: unspecified hyperlipidemia d/w pt at length findings and plan close outpatient follow up Condition: Good - Instructions Diet, Activity, Other Instructions: follow up with cardiology and neurology in one week Referrals: Cas Rollins MD [Primary Care Provider] - 1 Week Hao Anne MD [Non Staff, Medical] - - Home Medications Comprehensive Discharge Medication List: Ambulatory Orders Subcutaneous Insulin Pump [Insulin Pump] 1 each [facility] QID 07/21/11 Metoprolol Tartrate [Lopressor -] 25 mg PO BID 06/23/15 Cholecalciferol (Vitamin D3) [Vitamin D3] 50,000 unit PO WEEKLY 08/09/18 Atorvastatin Ca [Lipitor] 80 mg PO HS #30 tablet 08/12/18 Aspirin/Dipyridamole [Aggrenox -] 1 combo PO BID #60 capsule 05/01/19 Metoprolol Tartrate [Lopressor -] 25 mg PO BID #60 tablet 05/01/19
[2019-05-01] MEDS ORDERED: PT OWN MED DRAWER 7, Y5N ONE ×2 (09:00→09:42)
[2019-05-01] MEDS: METOPROLOL TARTRATE 25 MG TABLET (FP) PO SCH (09:10)
[2019-05-01] MEDS: ASPIRIN/DIPYRIDAMOLE 25 MG/200 MG CAPSULE PO SCH (09:43)
[2019-05-01 09:56] VITALS: BP 159/79; PULSE 75; TEMP 97.8
== END 2019-05-01 09:55 | disposition home or self-care (01) | DRG 65 ==
LOC: JER 09:01 → INTOOBSV 14:27 → UNDOADMOB 14:27 → JERBED 14:27 → J4W 20:39 → JERBED 04-29 10:22 → OBSVTOIN 04-30 08:02
PROVIDERS: ADMIT Family Medicine; ATTEND Family Medicine
DX: I63.9 Cerebral infarction, unspecified (principal); G81.94 Hemiplegia, unspecified affecting left nondominant side; I25.10 Atherosclerotic heart disease of native coronary artery without angina pectoris; Z95.1 Presence of aortocoronary bypass graft; R20.2 Paresthesia of skin; E11.9 Type 2 diabetes mellitus without complications; E78.5 Hyperlipidemia, unspecified
CPT/HCPCS: 36415; 70496-TC; 70498-TC; 70551-TC; 80053; 80061; 82550; 83090; 83721; 84484; 85025; 85027; 85610; 85730; 86850; 86900; 86901; 93005; 93010; 93306-TC; 97116-GP; 97161-GP; 99285-25; G0378; Q9967

== ENCOUNTER 2020-07-30 14:27 | Inpatient (IN) | payer OTHER ==
[2020-07-30] MEDS ORDERED: CLINDAMYCIN 600MG PREMIX IVPB 600 MG/50 ML BAG IVPB ONE ×3 (15:02→22:31)
[2020-07-30 15:59] LABS: BASO % 0.5 % (0-2.0); EOS % 1.6 % (0-4.5); HEMATOCRIT 35.3 % (35.4-49); HEMOGLOBIN 12.2 GM/dL (11.7-16.9); LYMPH % 16.1 % (8-40); MCHC 34.7 g/dl (32.0-35.9); MEAN CELL VOLUME 86.3 fl (80-96); MEAN PLT VOLUME 8.7 fl (7.5-11.1); MONO % 7.5 % (3.8-10.2); NEUT % 74.3 % (42.8-82.8); PLATELET COUNT 221 K/MM3 (134-434); RBC 4.09 M/mm3 (4.00-5.60); RDW 12.2 % (11.9-15.9)
[2020-07-30 16:20] LABS: CALCIUM 8.9 mg/dL (8.5-10.1)
[2020-07-30 16:21] LABS: ALBUMIN 3.8 g/dl (3.4-5.0); BLOOD UREA NITROGEN 29.2 mg/dL (7-18)
[2020-07-30 16:24] LABS: CREATININE 1.2 mg/dL (0.55-1.3); INR 0.97 (0.83-1.09); PROTHROMBIN TIME (PATIENT) 11.9 SEC (9.7-13.0)
[2020-07-30 16:26] LABS: BILIRUBIN,TOTAL 1.5 mg/dL (0.2-1); TOT PROT 7.2 g/dl (6.4-8.2)
[2020-07-30] MEDS ORDERED: ERGOCALCIFEROL (VIT D2) 50,000 UNIT (1.25 MG) CAPSULE PO SCH (22:00)
[2020-07-30] MEDS ORDERED: PT OWN MED DRAWER 7, Y5N ONE (22:52)
[2020-07-30] MEDS: ATORVASTATIN CA 80 MG TABLET (FP) PO SCH (23:02)
[2020-07-30] MEDS ORDERED: PNEUMOC 13-VAL CONJ-DIP CRM/PF 0.5 ML DISP.SYRIN IM ONE (23:20)
[2020-07-30] MEDS: ASPIRIN/DIPYRIDAMOLE 25 MG/200 MG CAPSULE PO SCH (23:30)
[2020-07-30 23:34] VITALS: BMI 27.4
[2020-07-31] MEDS: INSULIN SLIDING SCALE (NOVOLOG) 1 VIAL SQ SCH ×4 (05:59→21:51)
[2020-07-31] MEDS ORDERED: INSULIN (NOVOLOG) ASPART 100 UNITS/ML 10ML VIAL ONE (06:47)
[2020-07-31 07:30] LABS: BASO % 0.7 % (0-2.0); EOS % 2.2 % (0-4.5); HEMATOCRIT 34.7 % (35.4-49); HEMOGLOBIN 12.1 GM/dL (11.7-16.9); LYMPH % 13.6 % (8-40); MCH 30.4 pg (25.7-33.7); MCHC 34.8 g/dl (32.0-35.9); MEAN CELL VOLUME 87.4 fl (80-96); MEAN PLT VOLUME 8.4 fl (7.5-11.1); MONO % 9.3 % (3.8-10.2); NEUT % 74.2 % (42.8-82.8); PLATELET COUNT 197 K/MM3 (134-434); RBC 3.97 M/mm3 (4.00-5.60); RDW 12.4 % (11.9-15.9); WHITE BLOOD COUNT 6.6 K/mm3 (4.0-10.0)
[2020-07-31 07:38] LABS: INR 0.95 (0.83-1.09); PROTHROMBIN TIME (PATIENT) 11.7 SEC (9.7-13.0)
[2020-07-31 07:40] LABS: ACTIVATED PTT 28.6 SECONDS (25.2-36.5)
[2020-07-31 07:56] LABS: BLOOD UREA NITROGEN 23.9 mg/dL (7-18); CALCIUM 8.9 mg/dL (8.5-10.1)
[2020-07-31] MEDS ORDERED: PT OWN MED DRAWER 7, Y5N ONE (08:53)
[2020-07-31] MEDS: ASPIRIN/DIPYRIDAMOLE 25 MG/200 MG CAPSULE PO SCH ×2 (10:14→21:46)
[2020-07-31] MEDS: ASCORBIC ACID 500 MG TABLET (FP) PO SCH (10:15)
[2020-07-31] MEDS: METOPROLOL TARTRATE 25 MG TABLET (FP) PO SCH (10:16)
[2020-07-31] MEDS ORDERED: AMMONIUM LACTATE 12% LOTION 225 GM BOTTLE TP PRN (10:24)
[2020-07-31] MEDS: TRIAMCINOLONE ACET 0.1% OINT 15 GM TUBE TP SCH (11:47)
[2020-07-31] MEDS: VANCOMYCIN 1 GRAM (PRE-DOCKED) 1,000 MG/250 ML BAG IVPB SCH (16:32)
[2020-07-31] MEDS: ATORVASTATIN CA 80 MG TABLET (FP) PO SCH (21:46)
[2020-08-01] MEDS: VANCOMYCIN 1 GRAM (PRE-DOCKED) 1,000 MG/250 ML BAG IVPB SCH ×2 (02:04→14:18)
[2020-08-01] MEDS: INSULIN SLIDING SCALE (NOVOLOG) 1 VIAL SQ SCH ×4 (06:02→21:41)
[2020-08-01] MEDS ORDERED: PT OWN MED DRAWER 7, Y5N ONE (10:31)
[2020-08-01] MEDS ORDERED: INSULIN (NOVOLOG) ASPART 100 UNITS/ML 10ML VIAL ONE (10:36)
[2020-08-01] MEDS: METOPROLOL TARTRATE 25 MG TABLET (FP) PO SCH (10:40)
[2020-08-01] MEDS: ASCORBIC ACID 500 MG TABLET (FP) PO SCH (10:40)
[2020-08-01] MEDS: TRIAMCINOLONE ACET 0.1% OINT 15 GM TUBE TP SCH (10:41)
[2020-08-01] MEDS: ASPIRIN/DIPYRIDAMOLE 25 MG/200 MG CAPSULE PO SCH ×2 (10:41→21:43)
[2020-08-01] MEDS: ATORVASTATIN CA 80 MG TABLET (FP) PO SCH (21:43)
[2020-08-02] MEDS: VANCOMYCIN 1 GRAM (PRE-DOCKED) 1,000 MG/250 ML BAG IVPB SCH ×2 (02:09→17:34)
[2020-08-02] MEDS: INSULIN SLIDING SCALE (NOVOLOG) 1 VIAL SQ SCH ×4 (06:00→21:41)
[2020-08-02] MEDS ORDERED: INSULIN (NOVOLOG) ASPART 100 UNITS/ML 10ML VIAL ONE ×3 (06:12→21:36)
[2020-08-02] MEDS ORDERED: PT OWN MED DRAWER 7, Y5N ONE ×2 (09:24→21:35)
[2020-08-02] MEDS: ASCORBIC ACID 500 MG TABLET (FP) PO SCH (09:27)
[2020-08-02] MEDS: TRIAMCINOLONE ACET 0.1% OINT 15 GM TUBE TP SCH (09:27)
[2020-08-02] MEDS: ASPIRIN/DIPYRIDAMOLE 25 MG/200 MG CAPSULE PO SCH ×2 (09:27→21:40)
[2020-08-02] MEDS: METOPROLOL TARTRATE 25 MG TABLET (FP) PO SCH (09:27)
[2020-08-02] MEDS ORDERED: INSULIN (LEVEMIR) 100 UNITS/ML UNITS SQ ONE (11:32)
[2020-08-02] MEDS: INSULIN (LEVEMIR) 100 UNITS/ML UNITS SQ SCH ×2 (11:36→21:40)
[2020-08-02] MEDS: ATORVASTATIN CA 80 MG TABLET (FP) PO SCH (21:40)
[2020-08-02] MEDS ORDERED: INSULIN (LEVEMIR) 100 UNITS/ML UNITS SQ SCH (22:18)
[2020-08-03] MEDS: VANCOMYCIN 1 GRAM (PRE-DOCKED) 1,000 MG/250 ML BAG IVPB SCH (04:00)
[2020-08-03] MEDS: INSULIN SLIDING SCALE (NOVOLOG) 1 VIAL SQ SCH ×2 (06:13→11:58)
[2020-08-03] MEDS ORDERED: INSULIN (LEVEMIR) 100 UNITS/ML UNITS SQ SCH (07:07)
[2020-08-03 10:57] LABS: CALCIUM 9.3 mg/dL (8.5-10.1)
[2020-08-03 10:59] LABS: BLOOD UREA NITROGEN 23.2 mg/dL (7-18)
[2020-08-03 11:02] LABS: CREATININE 1.1 mg/dL (0.55-1.3)
[2020-08-03] MEDS: ASPIRIN/DIPYRIDAMOLE 25 MG/200 MG CAPSULE PO SCH (11:59)
[2020-08-03] MEDS: ASCORBIC ACID 500 MG TABLET (FP) PO SCH (11:59)
[2020-08-03] MEDS: METOPROLOL TARTRATE 25 MG TABLET (FP) PO SCH (11:59)
[2020-08-03] MEDS: TRIAMCINOLONE ACET 0.1% OINT 15 GM TUBE TP SCH (12:02)
[2020-08-03 14:10] VITALS: BP 149/82; PULSE 64; TEMP 97.6
[2020-08-03] MEDS ORDERED: INSULIN (NOVOLOG) ASPART 100 UNITS/ML 10ML VIAL ONE (17:34)
== END 2020-08-03 17:33 | disposition home health service (06) | DRG 638 ==
LOC: JER 14:27 → JERBED 17:27 → J7W 22:20
PROVIDERS: ADMIT Internal Medicine; ATTEND Family Medicine
PROC: 02HV33Z Insertion of Infusion Device into Superior Vena Cava, Percutaneous Approach (ICD-10-PCS; principal; 2020-08-03)
PROC: B518ZZA Fluoroscopy of Superior Vena Cava, Guidance (ICD-10-PCS; 2020-08-03)
DX: E11.69 Type 2 diabetes mellitus with other specified complication (principal); M86.9 Osteomyelitis, unspecified; L97.528 Non-pressure chronic ulcer of other part of left foot with other specified severity; L03.116 Cellulitis of left lower limb; I10 Essential (primary) hypertension; E78.5 Hyperlipidemia, unspecified; I25.10 Atherosclerotic heart disease of native coronary artery without angina pectoris; E11.621 Type 2 diabetes mellitus with foot ulcer; H54.7 Unspecified visual loss; E11.51 Type 2 diabetes mellitus with diabetic peripheral angiopathy without gangrene; Z89.421 Acquired absence of other right toe(s); Z95.1 Presence of aortocoronary bypass graft; Z86.73 Personal history of transient ischemic attack (TIA), and cerebral infarction without residual deficits; Z88.1 Allergy status to other antibiotic agents; Z22.322 Carrier or suspected carrier of Methicillin resistant Staphylococcus aureus
CPT/HCPCS: 28043; 36415; 36569; 71046-TC-FY; 73590-TC-LT-FY; 73610-TC-LT-FY; 73630-TC-LT; 73718-TC-LT; 80048; 80053; 82962; 83605; 85025; 85610; 85651; 85730; 86140; 87040; 87070; 87186; 87205; 93005; 93010; 99285-25; C9803; G0463-25; G0480; U0003; U0005

== ENCOUNTER 2020-09-13 05:26 | Day surgery (SDC) | payer OTHER ==
[2020-09-10 15:14] VITALS: BMI 23.8
[2020-09-13] MEDS ORDERED: BUPIVACAINE HCL 50 ML ONE (11:28)
[2020-09-13] MEDS ORDERED: LIDOCAINE HCL 2% (20ML MULTI-DOSE VIAL) ONE (11:28)
[2020-09-13] MEDS ORDERED: LIDOCAINE HCL 1%, 10 MG/ML (20ML VIAL) ONE (11:28)
[2020-09-13] MEDS ORDERED: BUPIVACAINE HCL/PF 0.25% (2.5MG/ML) 10 ML VIAL ONE (11:28)
[2020-09-13] MEDS ORDERED: INSULIN SLIDING SCALE (NOVOLOG) 1 VIAL SQ ONE (11:39)
[2020-09-13] MEDS ORDERED: INSULIN (NOVOLOG) ASPART 100 UNITS/ML 10ML VIAL ONE (11:43)
[2020-09-13] MEDS ORDERED: LIDOCAINE HCL 1%, 10 MG/ML (50 mL VIAL) INF ONE (12:01)
[2020-09-13 14:00] VITALS: BP 130/70; PULSE 68; TEMP 97
== END 2020-09-13 13:30 | disposition home or self-care (01) ==
LOC: JASU-SURG 05:26
PROVIDERS: ATTEND Podiatrist Foot Surgery
PROC: 0HBRXZZ Excision of Toe Nail, External Approach (ICD-10-PCS; 2020-09-13)
PROC: 0Y6U0Z0 Detachment at Left 3rd Toe, Complete, Open Approach (ICD-10-PCS; 2020-09-13)
PROC: 0QBR0ZZ Excision of Left Toe Phalanx, Open Approach (ICD-10-PCS; principal; 2020-09-13 11:30)
DX: E11.69 Type 2 diabetes mellitus with other specified complication (principal); M86.8X7 Other osteomyelitis, ankle and foot; Z96.41 Presence of insulin pump (external) (internal); Z79.899 Other long term (current) drug therapy; Z79.4 Long term (current) use of insulin
CPT/HCPCS: 82962; 87070; 87075; 87186; 87205; 88305-TC; 88311-TC

== ENCOUNTER 2021-07-08 15:16 | Inpatient (IN) | payer OTHER ==
[2021-07-08 17:53] LABS: BASO % 0.8 % (0-2.0); EOS % 3.6 % (0-4.5); HEMATOCRIT 34.1 % (35.4-49); HEMOGLOBIN 11.7 GM/dL (11.7-16.9); MCH 29.4 pg (25.7-33.7); MCHC 34.1 g/dl (32.0-35.9); MEAN CELL VOLUME 86.3 fl (80-96); MEAN PLT VOLUME 7.9 fl (7.5-11.1); NEUT % 72.6 % (42.8-82.8); PLATELET COUNT 246 10^3/uL (134-434); RBC 3.96 M/mm3 (4.00-5.60); RDW 12.6 % (11.9-15.9); WHITE BLOOD COUNT 8.7 K/mm3 (4.0-10.0)
[2021-07-08 18:13] LABS: ALBUMIN 3.4 g/dl (3.4-5.0)
[2021-07-08 18:16] LABS: CREATININE 1.3 mg/dL (0.55-1.3)
[2021-07-08 18:18] LABS: BILIRUBIN,TOTAL 1.2 mg/dL (0.2-1); TOT PROT 7.1 g/dl (6.4-8.2)
[2021-07-08] MEDS ORDERED: VANCOMYCIN 1 GM in D5W (PRE-DOCKED) 1,000 MG/250 ML IVPB ONE (18:49)
[2021-07-08] MEDS ORDERED: VANCOMYCIN 1 GRAM (PRE-DOCKED) 1,000 MG/250 ML BAG IVPB ONE (19:08)
[2021-07-09] MEDS ORDERED: VANCOMYCIN/WATER FOR INJ (PEG) 1,000 MG/200 ML BAG IVPB SCH (07:00)
[2021-07-09] MEDS: ASCORBIC ACID 500 MG TABLET (FP) PO SCH (10:17)
[2021-07-09] MEDS: METOPROLOL TARTRATE 25 MG TABLET (FP) PO SCH (10:17)
[2021-07-09] MEDS: CHOLECALCIFEROL (VIT D3) 1,000 UNIT (25 MCG) TABLET PO SCH (10:17)
[2021-07-09] MEDS: HEPARIN NA (PORCINE) 5,000 UNITS/ML 1ML VIAL SQ SCH ×2 (10:17→22:32)
[2021-07-09] MEDS: ASPIRIN/DIPYRIDAMOLE 25 MG/200 MG CAPSULE PO SCH ×2 (10:17→22:32)
[2021-07-09 10:19] LABS: BASO % 0.8 % (0-2.0); EOS % 4.4 % (0-4.5); HEMATOCRIT 33.4 % (35.4-49); HEMOGLOBIN 11.5 GM/dL (11.7-16.9); LYMPH % 10.9 % (8-40); MCH 29.4 pg (25.7-33.7); MCHC 34.4 g/dl (32.0-35.9); MEAN CELL VOLUME 85.6 fl (80-96); MEAN PLT VOLUME 8.3 fl (7.5-11.1); MONO % 9.6 % (3.8-10.2); NEUT % 74.3 % (42.8-82.8); PLATELET COUNT 260 10^3/uL (134-434); RDW 12.1 % (11.9-15.9); WHITE BLOOD COUNT 7.3 K/mm3 (4.0-10.0)
[2021-07-09 10:25] LABS: CHLORIDE 101 mmol/L (98-107); SODIUM 132 mmol/L (136-145)
[2021-07-09 10:32] LABS: SGPT/ALT 14 U/L (13-61)
[2021-07-09 10:33] LABS: ALBUMIN 3.3 g/dl (3.4-5.0); ANION GAP 8 MMOL/L (8-16); BLOOD UREA NITROGEN 25.6 mg/dL (7-18); CALCIUM 8.7 mg/dL (8.5-10.1); CO2 23 mmol/L (21-32); CREATININE 1.3 mg/dL (0.55-1.3)
[2021-07-09 10:34] LABS: BILIRUBIN,TOTAL 1.7 mg/dL (0.2-1); TOT PROT 6.8 g/dl (6.4-8.2)
[2021-07-09 10:36] LABS: ALK PHOS 81 U/L (45-117); SGOT/AST 12 U/L (15-37)
[2021-07-09 11:06] LABS: GLUCOSE,RANDOM 422 mg/dL (74-106)
[2021-07-09] MEDS ORDERED: DEXTROSE 5%-WATER 100 ML IVPB ONE ×2 (12:29→17:17)
[2021-07-09] MEDS ORDERED: CEFEPIME HCL 1 GM VIAL (RESTRICTED TO ID) ONE ×2 (12:29→17:17)
[2021-07-09] MEDS ORDERED: INSULIN (NOVOLOG) ASPART 100 UNITS/ML 10ML VIAL SQ ONE (12:30)
[2021-07-09] MEDS: CEFEPIME 1 GM in DEXTROSE 5%-WATER 1 GM/100 ML BAG IVPB SCH ×2 (12:30→17:23)
[2021-07-09] MEDS: INSULIN SLIDING SCALE (NOVOLOG) 1 VIAL SQ SCH ×2 (16:34→22:32)
[2021-07-09] MEDS: VANCOMYCIN/WATER FOR INJ (PEG) 1,000 MG/200 ML BAG IVPB SCH (18:15)
[2021-07-09] MEDS: ATORVASTATIN CA 80 MG TABLET (FP) PO SCH (22:32)
[2021-07-10] MEDS ORDERED: CEFEPIME HCL 1 GM VIAL (RESTRICTED TO ID) ONE ×3 (01:05→16:38)
[2021-07-10] MEDS ORDERED: DEXTROSE 5%-WATER 100 ML IVPB ONE ×3 (01:06→16:38)
[2021-07-10] MEDS: CEFEPIME 1 GM in DEXTROSE 5%-WATER 1 GM/100 ML BAG IVPB SCH ×3 (01:51→17:08)
[2021-07-10] MEDS: VANCOMYCIN/WATER FOR INJ (PEG) 1,000 MG/200 ML BAG IVPB SCH ×2 (06:30→18:28)
[2021-07-10] MEDS: INSULIN SLIDING SCALE (NOVOLOG) 1 VIAL SQ SCH ×4 (06:30→21:29)
[2021-07-10] MEDS: HEPARIN NA (PORCINE) 5,000 UNITS/ML 1ML VIAL SQ SCH ×2 (09:27→21:29)
[2021-07-10] MEDS: ASCORBIC ACID 500 MG TABLET (FP) PO SCH (09:27)
[2021-07-10] MEDS: CHOLECALCIFEROL (VIT D3) 1,000 UNIT (25 MCG) TABLET PO SCH (09:27)
[2021-07-10] MEDS: METOPROLOL TARTRATE 25 MG TABLET (FP) PO SCH (09:27)
[2021-07-10] MEDS: ASPIRIN/DIPYRIDAMOLE 25 MG/200 MG CAPSULE PO SCH ×2 (09:28→21:30)
[2021-07-10 09:29] LABS: BASO % 0.6 % (0-2.0); EOS % 6.1 % (0-4.5); HEMOGLOBIN 10.8 GM/dL (11.7-16.9); LYMPH % 8.1 % (8-40); MCHC 33.7 g/dl (32.0-35.9); MEAN PLT VOLUME 8.3 fl (7.5-11.1); MONO % 9.9 % (3.8-10.2); NEUT % 75.3 % (42.8-82.8); PLATELET COUNT 236 10^3/uL (134-434); RBC 3.72 M/mm3 (4.00-5.60); RDW 12.2 % (11.9-15.9); WHITE BLOOD COUNT 6.5 K/mm3 (4.0-10.0)
[2021-07-10 10:03] LABS: CALCIUM 8.6 mg/dL (8.5-10.1)
[2021-07-10 10:04] LABS: BLOOD UREA NITROGEN 30.1 mg/dL (7-18)
[2021-07-10 10:06] LABS: CREATININE 1.3 mg/dL (0.55-1.3)
[2021-07-10 10:07] LABS: BILIRUBIN,TOTAL 1.3 mg/dL (0.2-1); TOT PROT 6.3 g/dl (6.4-8.2)
[2021-07-10] MEDS: OMEGA-3 ACID ETHYL ESTERS (FATTY-ACIDS) 1 GM CAPSULE (FP) PO SCH (14:25)
[2021-07-10] MEDS: ATORVASTATIN CA 80 MG TABLET (FP) PO SCH (21:28)
[2021-07-11] MEDS ORDERED: CEFEPIME HCL 1 GM VIAL (RESTRICTED TO ID) ONE ×3 (01:13→18:54)
[2021-07-11] MEDS ORDERED: DEXTROSE 5%-WATER 100 ML IVPB ONE ×3 (01:14→18:54)
[2021-07-11] MEDS: CEFEPIME 1 GM in DEXTROSE 5%-WATER 1 GM/100 ML BAG IVPB SCH ×3 (01:34→19:52)
[2021-07-11] MEDS: VANCOMYCIN/WATER FOR INJ (PEG) 1,000 MG/200 ML BAG IVPB SCH ×2 (06:20→21:51)
[2021-07-11] MEDS: INSULIN SLIDING SCALE (NOVOLOG) 1 VIAL SQ SCH ×4 (06:21→21:36)
[2021-07-11 09:33] LABS: BASO % 0.5 % (0-2.0); EOS % 6.1 % (0-4.5); HEMOGLOBIN 11.3 GM/dL (11.7-16.9); LYMPH % 9.4 % (8-40); MCHC 34.3 g/dl (32.0-35.9); MEAN CELL VOLUME 84.7 fl (80-96); MEAN PLT VOLUME 8.3 fl (7.5-11.1); PLATELET COUNT 256 10^3/uL (134-434); RDW 12.1 % (11.9-15.9); WHITE BLOOD COUNT 6.7 K/mm3 (4.0-10.0)
[2021-07-11 09:52] LABS: BLOOD UREA NITROGEN 26.2 mg/dL (7-18); CALCIUM 8.9 mg/dL (8.5-10.1)
[2021-07-11 09:53] LABS: ALBUMIN 3.1 g/dl (3.4-5.0)
[2021-07-11 09:56] LABS: CREATININE 1.2 mg/dL (0.55-1.3)
[2021-07-11 09:57] LABS: TOT PROT 6.5 g/dl (6.4-8.2)
[2021-07-11] MEDS: METOPROLOL TARTRATE 25 MG TABLET (FP) PO SCH (10:07)
[2021-07-11] MEDS: HEPARIN NA (PORCINE) 5,000 UNITS/ML 1ML VIAL SQ SCH ×2 (10:07→21:36)
[2021-07-11] MEDS: OMEGA-3 ACID ETHYL ESTERS (FATTY-ACIDS) 1 GM CAPSULE (FP) PO SCH (10:07)
[2021-07-11] MEDS: ASCORBIC ACID 500 MG TABLET (FP) PO SCH (10:07)
[2021-07-11] MEDS: CHOLECALCIFEROL (VIT D3) 1,000 UNIT (25 MCG) TABLET PO SCH (10:07)
[2021-07-11] MEDS: ASPIRIN/DIPYRIDAMOLE 25 MG/200 MG CAPSULE PO SCH ×2 (10:08→21:35)
[2021-07-11] MEDS: ATORVASTATIN CA 80 MG TABLET (FP) PO SCH (21:35)
[2021-07-12] MEDS ORDERED: CEFEPIME HCL 1 GM VIAL (RESTRICTED TO ID) ONE ×3 (00:49→17:19)
[2021-07-12] MEDS ORDERED: DEXTROSE 5%-WATER 100 ML IVPB ONE ×3 (00:49→17:20)
[2021-07-12] MEDS: CEFEPIME 1 GM in DEXTROSE 5%-WATER 1 GM/100 ML BAG IVPB SCH ×3 (02:11→17:30)
[2021-07-12] MEDS: INSULIN (LEVEMIR) 100 UNITS/ML UNITS SQ SCH (06:55)
[2021-07-12] MEDS: INSULIN SLIDING SCALE (NOVOLOG) 1 VIAL SQ SCH ×4 (06:56→21:34)
[2021-07-12] MEDS ORDERED: VANCOMYCIN/WATER FOR INJ (PEG) 1,000 MG/200 ML BAG IVPB SCH (10:00)
[2021-07-12] MEDS: METOPROLOL TARTRATE 25 MG TABLET (FP) PO SCH (10:12)
[2021-07-12] MEDS: CHOLECALCIFEROL (VIT D3) 1,000 UNIT (25 MCG) TABLET PO SCH (10:12)
[2021-07-12] MEDS: ASCORBIC ACID 500 MG TABLET (FP) PO SCH (10:12)
[2021-07-12] MEDS: OMEGA-3 ACID ETHYL ESTERS (FATTY-ACIDS) 1 GM CAPSULE (FP) PO SCH (10:12)
[2021-07-12] MEDS: HEPARIN NA (PORCINE) 5,000 UNITS/ML 1ML VIAL SQ SCH ×2 (10:12→21:34)
[2021-07-12] MEDS: ASPIRIN/DIPYRIDAMOLE 25 MG/200 MG CAPSULE PO SCH ×2 (10:18→21:32)
[2021-07-12 15:47] VITALS: BMI 26.8
[2021-07-12] MEDS ORDERED: AMMONIUM LACTATE 12% LOTION 225 GM BOTTLE TP PRN (16:34)
[2021-07-12] MEDS: ATORVASTATIN CA 80 MG TABLET (FP) PO SCH (21:33)
[2021-07-12] MEDS: MINERAL OIL/PET HY-PHL TOPICAL OINTMENT 454 GM JAR TP SCH (21:48)
[2021-07-12] MEDS: TRIAMCINOLONE ACET 0.1% 60 ML LOTION TP SCH (21:50)
[2021-07-13] MEDS ORDERED: CEFEPIME HCL 1 GM VIAL (RESTRICTED TO ID) ONE ×2 (01:15→10:05)
[2021-07-13] MEDS ORDERED: DEXTROSE 5%-WATER 100 ML IVPB ONE ×2 (01:16→10:05)
[2021-07-13] MEDS: CEFEPIME 1 GM in DEXTROSE 5%-WATER 1 GM/100 ML BAG IVPB SCH ×2 (01:32→10:26)
[2021-07-13] MEDS: INSULIN SLIDING SCALE (NOVOLOG) 1 VIAL SQ SCH ×4 (06:21→22:25)
[2021-07-13] MEDS: INSULIN (LEVEMIR) 100 UNITS/ML UNITS SQ SCH (06:22)
[2021-07-13] MEDS: OMEGA-3 ACID ETHYL ESTERS (FATTY-ACIDS) 1 GM CAPSULE (FP) PO SCH (10:27)
[2021-07-13] MEDS: METOPROLOL TARTRATE 25 MG TABLET (FP) PO SCH (10:28)
[2021-07-13] MEDS: ASCORBIC ACID 500 MG TABLET (FP) PO SCH (10:28)
[2021-07-13] MEDS: ASPIRIN/DIPYRIDAMOLE 25 MG/200 MG CAPSULE PO SCH ×2 (10:28→23:13)
[2021-07-13] MEDS: CHOLECALCIFEROL (VIT D3) 1,000 UNIT (25 MCG) TABLET PO SCH (10:28)
[2021-07-13] MEDS: HEPARIN NA (PORCINE) 5,000 UNITS/ML 1ML VIAL SQ SCH ×2 (10:29→23:06)
[2021-07-13] MEDS: VANCOMYCIN/WATER BAGS 1,250 MG/250 ML BAG IVPB SCH (12:13)
[2021-07-13] MEDS: MINERAL OIL/PET HY-PHL TOPICAL OINTMENT 454 GM JAR TP SCH ×2 (14:10→23:07)
[2021-07-13] MEDS: TRIAMCINOLONE ACET 0.1% 60 ML LOTION TP SCH ×2 (14:10→23:07)
[2021-07-13] MEDS ORDERED: INSULIN (LEVEMIR) 100 UNITS/ML UNITS SQ SCH (22:38)
[2021-07-13] MEDS: ATORVASTATIN CA 80 MG TABLET (FP) PO SCH (23:06)
[2021-07-14] MEDS: INSULIN SLIDING SCALE (NOVOLOG) 1 VIAL SQ SCH ×2 (06:36→11:50)
[2021-07-14] MEDS: ASCORBIC ACID 500 MG TABLET (FP) PO SCH (10:02)
[2021-07-14] MEDS: OMEGA-3 ACID ETHYL ESTERS (FATTY-ACIDS) 1 GM CAPSULE (FP) PO SCH (10:02)
[2021-07-14] MEDS: CHOLECALCIFEROL (VIT D3) 1,000 UNIT (25 MCG) TABLET PO SCH (10:02)
[2021-07-14] MEDS: METOPROLOL TARTRATE 25 MG TABLET (FP) PO SCH (10:03)
[2021-07-14] MEDS: VANCOMYCIN/WATER BAGS 1,250 MG/250 ML BAG IVPB SCH (10:04)
[2021-07-14] MEDS: HEPARIN NA (PORCINE) 5,000 UNITS/ML 1ML VIAL SQ SCH (11:00)
[2021-07-14] MEDS: ASPIRIN/DIPYRIDAMOLE 25 MG/200 MG CAPSULE PO SCH (11:00)
[2021-07-14] MEDS: TRIAMCINOLONE ACET 0.1% 60 ML LOTION TP SCH (12:17)
[2021-07-14] MEDS: MINERAL OIL/PET HY-PHL TOPICAL OINTMENT 454 GM JAR TP SCH (12:18)
[2021-07-14 13:12] VITALS: BP 100/64; PULSE 64; TEMP 98.5
[2021-07-15] MEDS ORDERED: INSULIN (LEVEMIR) 100 UNITS/ML UNITS SQ SCH (07:00)
== END 2021-07-14 15:05 | disposition home health service (06) | DRG 638 ==
LOC: JER 15:16 → JERBED 19:19 → J5S 07-09 02:20
PROVIDERS: ADMIT Internal Medicine; ATTEND Family Medicine
PROC: 02HV33Z Insertion of Infusion Device into Superior Vena Cava, Percutaneous Approach (ICD-10-PCS; principal; 2021-07-12)
PROC: B518ZZA Fluoroscopy of Superior Vena Cava, Guidance (ICD-10-PCS; 2021-07-12)
DX: E11.69 Type 2 diabetes mellitus with other specified complication (principal); M86.8X7 Other osteomyelitis, ankle and foot; L97.518 Non-pressure chronic ulcer of other part of right foot with other specified severity; L02.611 Cutaneous abscess of right foot; E11.621 Type 2 diabetes mellitus with foot ulcer; I25.10 Atherosclerotic heart disease of native coronary artery without angina pectoris; I48.91 Unspecified atrial fibrillation; E11.51 Type 2 diabetes mellitus with diabetic peripheral angiopathy without gangrene; E78.5 Hyperlipidemia, unspecified; J45.909 Unspecified asthma, uncomplicated; H54.62 Unqualified visual loss, left eye, normal vision right eye; B95.61 Methicillin susceptible Staphylococcus aureus infection as the cause of diseases classified elsewhere; B95.1 Streptococcus, group B, as the cause of diseases classified elsewhere; Z89.421 Acquired absence of other right toe(s); Z95.1 Presence of aortocoronary bypass graft; Z88.0 Allergy status to penicillin
CPT/HCPCS: 36415; 36569; 71045-TC-FY; 73630-TC-RT-FY; 73718-TC-RT; 77001-TC-FY; 80053; 82962; 83036; 85025; 86140; 87040; 87070; 87077; 87186; 87205; 93005; 93010; 93922; 93925-TC; 93971; 97116-GP; 97162-GP; 99285-25; C1751; C9803-CS; G0463-25; G0480; J1644; U0003; U0005

== ENCOUNTER 2021-08-11 04:08 | Day surgery (SDC) | payer OTHER ==
[2021-08-09 14:40] VITALS: BMI 28.2
[2021-08-11] MEDS ORDERED: INSULIN (NOVOLOG) ASPART 100 UNITS/ML 10ML VIAL SQ ONE (11:30)
[2021-08-11] MEDS ORDERED: LIDOCAINE HCL 2% (20ML MULTI-DOSE VIAL) ONE (11:54)
[2021-08-11] MEDS ORDERED: MIDAZOLAM HCL 2 MG/2 ML SINGLE DOSE VIAL ONE (12:41)
[2021-08-11] MEDS ORDERED: PROPOFOL 20 ML ONE (12:42)
[2021-08-11] MEDS ORDERED: FENTANYL CITRATE/PF 50 MCG/ML VIAL ONE (12:48)
[2021-08-11 15:12] VITALS: BP 129/68; PULSE 68; TEMP 97.2
== END 2021-08-11 15:35 | disposition home or self-care (01) ==
LOC: JASU-SURG 04:08
PROVIDERS: ATTEND Podiatrist Foot & Ankle Surgery
PROC: 0HTRXZZ Resection of Toe Nail, External Approach (ICD-10-PCS; 2021-08-11)
PROC: 0QBQ0ZZ Excision of Right Toe Phalanx, Open Approach (ICD-10-PCS; principal; 2021-08-11 14:00)
DX: M86.8X7 Other osteomyelitis, ankle and foot (principal); E11.621 Type 2 diabetes mellitus with foot ulcer; L97.518 Non-pressure chronic ulcer of other part of right foot with other specified severity
CPT/HCPCS: 82962; 87070; 87186; 88305-TC; 88311-TC

== ENCOUNTER 2022-07-31 08:38 | Inpatient (IN) | payer OTHER ==
[2022-07-31 10:26] LABS: BASO % 0.6 % (0-2.0); HEMOGLOBIN 12.6 GM/dL (11.7-16.9); LYMPH % 17.2 % (8-40); MCH 29.3 pg (25.7-33.7); MCHC 34.9 g/dl (32.0-35.9); MEAN CELL VOLUME 83.9 fl (80-96); MEAN PLT VOLUME 8.8 fl (7.5-11.1); NEUT % 69.2 % (42.8-82.8); PLATELET COUNT 162 10^3/uL (134-434); RDW 12.5 % (11.9-15.9); WHITE BLOOD COUNT 6.7 K/mm3 (4.0-10.0)
[2022-07-31 10:34] LABS: INR 0.97 (0.83-1.09); PROTHROMBIN TIME (PATIENT) 11.3 SEC (9.7-13.0)
[2022-07-31 10:37] LABS: ACTIVATED PTT 30.7 SECONDS (25.2-36.5)
[2022-07-31 10:40] LABS: POTASSIUM 4.8 mmol/L (3.5-5.1)
[2022-07-31 10:41] LABS: CALCIUM 8.7 mg/dL (8.5-10.1)
[2022-07-31 10:42] LABS: ALBUMIN 3.8 g/dl (3.4-5.0)
[2022-07-31 10:43] LABS: BLOOD UREA NITROGEN 26.6 mg/dL (7-18)
[2022-07-31 10:46] LABS: CREATININE 1.2 mg/dL (0.55-1.3)
[2022-07-31 10:47] LABS: TOT PROT 6.8 g/dl (6.4-8.2)
[2022-07-31 10:48] LABS: BILIRUBIN,TOTAL 1.7 mg/dL (0.2-1)
[2022-07-31] MEDS ORDERED: ASPIRIN 325 MG ENTERIC COATED TABLET (FP) PO ONE (11:26)
[2022-07-31] MEDS ORDERED: ASPIRIN 325 MG ENTERIC COATED TABLET (FP) ONE (11:35)
[2022-07-31 11:51] LABS: PH,URINE 6.5 (5.0-8.0); URINE APPEARANCE CLEAR; URINE BILIRUBIN NEGATIVE (NEGATIVE); URINE COLOR YELLOW; URINE GLUCOSE (UA) 1+ (NEGATIVE); URINE KETONE NEGATIVE (NEGATIVE); URINE LEUK ESTERASE NEGATIVE (NEGATIVE); URINE NITRITE NEGATIVE (NEGATIVE); URINE PROTEIN NEGATIVE (NEGATIVE)
[2022-07-31 13:17] VITALS: BMI 27.5
[2022-07-31] MEDS: INSULIN SLIDING SCALE (NOVOLOG) 1 VIAL SQ SCH ×2 (16:46→21:28)
[2022-07-31 16:51] LABS: CHOLESTEROL 98 mg/dL (50-200)
[2022-07-31 16:53] LABS: LDL CHOLESTEROL (ONLY SJRH) 44 mg/dL (5-100)
[2022-07-31 16:54] LABS: HDL CHOLESTEROL 45 mg/dL (40-60)
[2022-07-31] MEDS: HEPARIN NA (PORCINE) 5,000 UNITS/ML 1ML VIAL SQ SCH (21:28)
[2022-07-31] MEDS: ATORVASTATIN CA 80 MG TABLET (FP) PO SCH (21:28)
[2022-08-01] MEDS: INSULIN SLIDING SCALE (NOVOLOG) 1 VIAL SQ SCH ×4 (06:21→22:05)
[2022-08-01 08:42] LABS: BASO % 0.8 % (0-2.0); EOS % 3.2 % (0-4.5); HEMATOCRIT 35.2 % (35.4-49); HEMOGLOBIN 12.3 GM/dL (11.7-16.9); LYMPH % 21.6 % (8-40); MCH 29.4 pg (25.7-33.7); MCHC 34.9 g/dl (32.0-35.9); MEAN CELL VOLUME 84.3 fl (80-96); MEAN PLT VOLUME 8.6 fl (7.5-11.1); MONO % 9.7 % (3.8-10.2); NEUT % 64.7 % (42.8-82.8); PLATELET COUNT 143 10^3/uL (134-434); RBC 4.18 M/mm3 (4.00-5.60); RDW 12.5 % (11.9-15.9); WHITE BLOOD COUNT 5.7 K/mm3 (4.0-10.0)
[2022-08-01 09:01] LABS: CALCIUM 8.8 mg/dL (8.5-10.1)
[2022-08-01 09:02] LABS: ALBUMIN 3.6 g/dl (3.4-5.0); BLOOD UREA NITROGEN 24.7 mg/dL (7-18); MAGNESIUM 2.1 mg/dL (1.8-2.4)
[2022-08-01 09:05] LABS: CREATININE 1.2 mg/dL (0.55-1.3)
[2022-08-01 09:07] LABS: TOT PROT 6.4 g/dl (6.4-8.2)
[2022-08-01] MEDS: CLOPIDOGREL BISULFATE 75 MG TABLET (FP) PO SCH (10:12)
[2022-08-01] MEDS: HEPARIN NA (PORCINE) 5,000 UNITS/ML 1ML VIAL SQ SCH ×2 (10:12→22:04)
[2022-08-01] MEDS: EZETIMIBE 10 MG TABLET (FP) PO SCH (10:12)
[2022-08-01] MEDS: LOSARTAN POTASSIUM 25 MG TABLET PO SCH (10:12)
[2022-08-01] MEDS: ASPIRIN 81 MG CHEWABLE TABLETS PO SCH (10:12)
[2022-08-01] MEDS: metoPROLOL SUCCINATE 25 MG TAB.SR.24H (FP) PO SCH (10:12)
[2022-08-01] MEDS: ATORVASTATIN CA 80 MG TABLET (FP) PO SCH (22:05)
[2022-08-02] MEDS: INSULIN SLIDING SCALE (NOVOLOG) 1 VIAL SQ SCH ×4 (06:07→21:03)
[2022-08-02] MEDS ORDERED: PARoxetine HCL 20 MG TABLET PO SCH (08:30)
[2022-08-02] MEDS ORDERED: PARoxetine HCL 20 MG TABLET PO ONE (08:30)
[2022-08-02] MEDS ORDERED: INSULIN (LEVEMIR) 100 UNITS/ML UNITS SQ SCH (10:00)
[2022-08-02] MEDS: EZETIMIBE 10 MG TABLET (FP) PO SCH (10:03)
[2022-08-02] MEDS: LOSARTAN POTASSIUM 25 MG TABLET PO SCH (10:03)
[2022-08-02] MEDS: ASPIRIN 81 MG CHEWABLE TABLETS PO SCH (10:04)
[2022-08-02] MEDS: CLOPIDOGREL BISULFATE 75 MG TABLET (FP) PO SCH (10:04)
[2022-08-02] MEDS: HEPARIN NA (PORCINE) 5,000 UNITS/ML 1ML VIAL SQ SCH ×2 (10:04→21:03)
[2022-08-02] MEDS: metoPROLOL SUCCINATE 25 MG TAB.SR.24H (FP) PO SCH (10:05)
[2022-08-02] MEDS: INSULIN (LEVEMIR) 100 UNITS/ML UNITS SQ SCH (21:03)
[2022-08-02] MEDS: ATORVASTATIN CA 80 MG TABLET (FP) PO SCH (21:03)
[2022-08-03] MEDS: INSULIN SLIDING SCALE (NOVOLOG) 1 VIAL SQ SCH ×2 (06:18→11:25)
[2022-08-03 09:03] VITALS: PULSE 58; RESP 18; TEMP 98.5
[2022-08-03] MEDS: EZETIMIBE 10 MG TABLET (FP) PO SCH (09:10)
[2022-08-03] MEDS: metoPROLOL SUCCINATE 25 MG TAB.SR.24H (FP) PO SCH (09:10)
[2022-08-03] MEDS: CLOPIDOGREL BISULFATE 75 MG TABLET (FP) PO SCH (09:10)
[2022-08-03] MEDS: LOSARTAN POTASSIUM 25 MG TABLET PO SCH (09:10)
[2022-08-03] MEDS: HEPARIN NA (PORCINE) 5,000 UNITS/ML 1ML VIAL SQ SCH (09:10)
[2022-08-03] MEDS ORDERED: ASPIRIN 325 MG ENTERIC COATED TABLET (FP) PO SCH (10:00)
[2022-08-03 10:19] VITALS: BP 124/58
[2022-08-03] MEDS: INSULIN (LEVEMIR) 100 UNITS/ML UNITS SQ SCH (11:23)
[2022-08-03] MEDS ORDERED: INSULIN (LEVEMIR) 100 UNITS/ML UNITS SQ ONE (11:42)
== END 2022-08-03 13:12 | disposition home health service (06) | DRG 66 ==
LOC: JER 08:38 → JERBED 11:30 → J4S 12:44
PROVIDERS: ADMIT Family Medicine; ATTEND Family Medicine
DX: I63.89 Other cerebral infarction (principal); E78.5 Hyperlipidemia, unspecified; E11.9 Type 2 diabetes mellitus without complications; I48.91 Unspecified atrial fibrillation; I10 Essential (primary) hypertension; R47.81 Slurred speech; H54.40 Blindness, one eye, unspecified eye; R29.702 NIHSS score 2; I25.10 Atherosclerotic heart disease of native coronary artery without angina pectoris; Z95.1 Presence of aortocoronary bypass graft; Z22.322 Carrier or suspected carrier of Methicillin resistant Staphylococcus aureus; Z89.421 Acquired absence of other right toe(s)
CPT/HCPCS: 0241U-QW; 36415; 70450-TC; 70551-TC; 71045-TC-FY; 80053; 80061; 81003; 82550; 82962; 83036; 83735; 84443; 84484; 85025; 85610; 85730; 86850; 86900; 86901; 87077; 87081; 87086; 93005; 93010; 93306-TC; 93880-TC; 97116-GP; 97161-GP; 99291; J1644

== ENCOUNTER 2023-03-28 12:20 | Inpatient (IN) | payer OTHER ==
[2023-03-28] MEDS ORDERED: SODIUM CHLORIDE 0.9% 500 ML INFUS.BAG IV ONE ×2 (13:45→14:59)
[2023-03-28] MEDS ORDERED: INSULIN REGULAR HUMAN 100 UNITS/ML *VIAL IVPUSH ONE (13:45)
[2023-03-28 14:27] LABS: BASO % 0.7 % (0-2.0); EOS % 0.9 % (0-4.5); HEMATOCRIT 40.1 % (35.4-49); LYMPH % 14.6 % (8-40); MCH 28.2 pg (25.7-33.7); MCHC 32.4 g/dl (32.0-35.9); MEAN PLT VOLUME 8.9 fl (7.5-11.1); MONO % 5.4 % (3.8-10.2); NEUT % 78.4 % (42.8-82.8); PLATELET COUNT 237 10^3/uL (134-434); RBC 4.61 M/mm3 (4.00-5.60); WHITE BLOOD COUNT 8.5 K/mm3 (4.0-10.0)
[2023-03-28 14:38] LABS: VENOUS BASE EXCESS -0.2 mmol/L (-2-2); VENOUS PCO2 54.8 mmHg (38-52); VENOUS PH 7.309 (7.310-7.410)
[2023-03-28 14:47] LABS: CHLORIDE 95 mmol/L (98-107); POTASSIUM 5.6 mmol/L (3.5-5.1); SODIUM 130 mmol/L (136-145)
[2023-03-28 14:50] LABS: ANION GAP 8 mmol/L (4-13); CALCIUM 8.7 mg/dL (8.5-10.1); CO2 26 mmol/L (21-32)
[2023-03-28 14:53] LABS: SGOT/AST 23 U/L (15-37)
[2023-03-28 14:54] LABS: CREATININE 1.4 mg/dL (0.55-1.3); SGPT/ALT 28 U/L (13-61)
[2023-03-28 14:55] LABS: BILIRUBIN,TOTAL 1.1 mg/dL (0.2-1); TOT PROT 7.2 g/dl (6.4-8.2)
[2023-03-28 14:56] LABS: ALBUMIN 3.6 g/dl (3.4-5.0); ALK PHOS 90 U/L (45-117); BLOOD UREA NITROGEN 27.2 mg/dL (7-18); GLUCOSE,RANDOM 567 mg/dL (74-106)
[2023-03-28 15:04] LABS: THROAT:GRP A STREP NOT DETECTED (NOTDETECTED)
[2023-03-28 16:28] LABS: PH,URINE 6.5 (5.0-8.0); URINE APPEARANCE CLEAR; URINE BILIRUBIN NEGATIVE (NEGATIVE); URINE COLOR YELLOW; URINE GLUCOSE (UA) 3+ (NEGATIVE); URINE KETONE NEGATIVE (NEGATIVE); URINE LEUK ESTERASE NEGATIVE (NEGATIVE); URINE NITRITE NEGATIVE (NEGATIVE); URINE PROTEIN NEGATIVE (NEGATIVE); URINE UROBILINOGEN 0.2 mg/dL (0.2-1.0)
[2023-03-28] MEDS ORDERED: PARoxetine HCL 20 MG TABLET PO SCH (18:15)
[2023-03-28] MEDS ORDERED: CLOPIDOGREL BISULFATE 75 MG TABLET (FP) PO SCH (18:15)
[2023-03-28] MEDS: SODIUM CHLORIDE 1,000 ML IV SCH (19:31)
[2023-03-28] MEDS ORDERED: INSULIN ASPART SLIDING SCALE (NOVOLOG) 1 VIAL SQ SCH (22:00)
[2023-03-28] MEDS ORDERED: INSULIN (LEVEMIR) 100 UNITS/ML UNITS SQ ONE ×2 (22:07→23:13)
[2023-03-28] MEDS ORDERED: ATORVASTATIN CA 80 MG TABLET (FP) ONE (22:07)
[2023-03-28] MEDS: ATORVASTATIN CA 80 MG TABLET (FP) PO SCH (22:15)
[2023-03-28] MEDS: INSULIN ASPART SLIDING SCALE (NOVOLOG) 1 VIAL SQ SCH (22:19)
[2023-03-28] MEDS: INSULIN (LEVEMIR) 100 UNITS/ML UNITS SQ SCH (22:20)
[2023-03-29 03:45] VITALS: BMI 26.8
[2023-03-29] MEDS ORDERED: INSULIN (NOVOLOG) ASPART 100 UNITS/ML 10ML VIAL ONE ×4 (05:24→21:55)
[2023-03-29] MEDS: INSULIN (LEVEMIR) 100 UNITS/ML UNITS SQ SCH ×2 (06:43→22:00)
[2023-03-29] MEDS: INSULIN ASPART SLIDING SCALE (NOVOLOG) 1 VIAL SQ SCH ×4 (06:45→22:00)
[2023-03-29] MEDS: LOSARTAN POTASSIUM 25 MG TABLET PO SCH (09:24)
[2023-03-29] MEDS: EZETIMIBE 10 MG TABLET (FP) PO SCH (09:24)
[2023-03-29] MEDS: CLOPIDOGREL BISULFATE 75 MG TABLET (FP) PO SCH (09:24)
[2023-03-29] MEDS: ASPIRIN 325 MG ENTERIC COATED TABLET (FP) PO SCH (09:24)
[2023-03-29] MEDS ORDERED: METOPROLOL TARTRATE 25 MG TABLET (FP) PO SCH (10:00)
[2023-03-29 11:11] LABS: BASO % 0.9 % (0-2.0); EOS % 2.3 % (0-4.5); HEMATOCRIT 35.4 % (35.4-49); HEMOGLOBIN 11.9 GM/dL (11.7-16.9); LYMPH % 19.2 % (8-40); MCH 28.5 pg (25.7-33.7); MCHC 33.6 g/dl (32.0-35.9); MEAN CELL VOLUME 84.9 fl (80-96); MEAN PLT VOLUME 8.9 fl (7.5-11.1); MONO % 8.4 % (3.8-10.2); NEUT % 69.2 % (42.8-82.8); PLATELET COUNT 210 10^3/uL (134-434); RBC 4.17 M/mm3 (4.00-5.60); RDW 13.2 % (11.9-15.9); WHITE BLOOD COUNT 5.9 K/mm3 (4.0-10.0)
[2023-03-29 11:21] LABS: POTASSIUM 4.2 mmol/L (3.5-5.1)
[2023-03-29 11:32] LABS: ALBUMIN 3.2 g/dl (3.4-5.0)
[2023-03-29 11:35] LABS: BLOOD UREA NITROGEN 20.8 mg/dL (7-18); CALCIUM 8.5 mg/dL (8.5-10.1); CREATININE 1.1 mg/dL (0.55-1.3)
[2023-03-29 11:36] LABS: MAGNESIUM 1.7 mg/dL (1.8-2.4)
[2023-03-29 11:37] LABS: BILIRUBIN,TOTAL 1.1 mg/dL (0.2-1); TOT PROT 6.3 g/dl (6.4-8.2)
[2023-03-29] MEDS: SODIUM CHLORIDE 1,000 ML IV SCH (20:56)
[2023-03-29] MEDS: ATORVASTATIN CA 80 MG TABLET (FP) PO SCH (21:59)
[2023-03-30] MEDS: SODIUM CHLORIDE 1,000 ML IV SCH ×3 (00:38→21:53)
[2023-03-30] MEDS ORDERED: INSULIN (NOVOLOG) ASPART 100 UNITS/ML 10ML VIAL ONE (06:23)
[2023-03-30] MEDS: INSULIN (NOVOLOG) ASPART 100 UNITS/ML 10ML VIAL SQ SCH ×3 (06:26→17:36)
[2023-03-30] MEDS: INSULIN ASPART SLIDING SCALE (NOVOLOG) 1 VIAL SQ SCH ×4 (06:26→21:49)
[2023-03-30] MEDS: INSULIN (LEVEMIR) 100 UNITS/ML UNITS SQ SCH (06:27)
[2023-03-30] MEDS ORDERED: INSULIN (LEVEMIR) 100 UNITS/ML UNITS SQ SCH (07:00)
[2023-03-30] MEDS: CLOPIDOGREL BISULFATE 75 MG TABLET (FP) PO SCH (09:45)
[2023-03-30] MEDS: LOSARTAN POTASSIUM 25 MG TABLET PO SCH (09:45)
[2023-03-30] MEDS: EZETIMIBE 10 MG TABLET (FP) PO SCH (09:45)
[2023-03-30] MEDS: ASPIRIN 325 MG ENTERIC COATED TABLET (FP) PO SCH (09:45)
[2023-03-30 10:42] LABS: POTASSIUM 4.2 mmol/L (3.5-5.1)
[2023-03-30 10:43] LABS: CALCIUM 8.8 mg/dL (8.5-10.1)
[2023-03-30 10:44] LABS: BLOOD UREA NITROGEN 18.5 mg/dL (7-18)
[2023-03-30 10:47] LABS: CREATININE 0.9 mg/dL (0.55-1.3)
[2023-03-30 10:49] LABS: BILIRUBIN,TOTAL 0.7 mg/dL (0.2-1); TOT PROT 5.8 g/dl (6.4-8.2)
[2023-03-30] MEDS: ATORVASTATIN CA 80 MG TABLET (FP) PO SCH (21:49)
[2023-03-31] MEDS: SODIUM CHLORIDE 1,000 ML IV SCH ×2 (06:21→20:59)
[2023-03-31] MEDS: INSULIN (LEVEMIR) 100 UNITS/ML UNITS SQ SCH (06:25)
[2023-03-31] MEDS: INSULIN ASPART SLIDING SCALE (NOVOLOG) 1 VIAL SQ SCH ×4 (06:25→21:04)
[2023-03-31] MEDS: INSULIN (NOVOLOG) ASPART 100 UNITS/ML 10ML VIAL SQ SCH ×3 (06:25→17:31)
[2023-03-31] MEDS: CLOPIDOGREL BISULFATE 75 MG TABLET (FP) PO SCH (10:13)
[2023-03-31] MEDS: LOSARTAN POTASSIUM 25 MG TABLET PO SCH (10:13)
[2023-03-31] MEDS: EZETIMIBE 10 MG TABLET (FP) PO SCH (10:13)
[2023-03-31] MEDS: ASPIRIN 325 MG ENTERIC COATED TABLET (FP) PO SCH (10:14)
[2023-03-31] MEDS ORDERED: INSULIN (LEVEMIR) 100 UNITS/ML UNITS SQ SCH (15:07)
[2023-03-31] MEDS: ATORVASTATIN CA 80 MG TABLET (FP) PO SCH (20:59)
[2023-04-01] MEDS: INSULIN (NOVOLOG) ASPART 100 UNITS/ML 10ML VIAL SQ SCH ×2 (06:50→11:31)
[2023-04-01] MEDS: INSULIN ASPART SLIDING SCALE (NOVOLOG) 1 VIAL SQ SCH ×2 (06:52→11:33)
[2023-04-01] MEDS: LOSARTAN POTASSIUM 25 MG TABLET PO SCH (10:03)
[2023-04-01] MEDS: EZETIMIBE 10 MG TABLET (FP) PO SCH (10:03)
[2023-04-01] MEDS: CLOPIDOGREL BISULFATE 75 MG TABLET (FP) PO SCH (10:03)
[2023-04-01] MEDS: ASPIRIN 325 MG ENTERIC COATED TABLET (FP) PO SCH (10:07)
[2023-04-01 11:52] VITALS: RESP 19
[2023-04-01 11:59] VITALS: BP 125/61; PULSE 78; TEMP 97.8
== END 2023-04-01 02:30 | DRG 639 ==
LOC: JER 12:20 → JERBED 15:06 → J8W 03-29 00:38
PROVIDERS: ADMIT Internal Medicine; ATTEND Internal Medicine
DX: E11.65 Type 2 diabetes mellitus with hyperglycemia (principal); E11.621 Type 2 diabetes mellitus with foot ulcer; E11.51 Type 2 diabetes mellitus with diabetic peripheral angiopathy without gangrene; E78.5 Hyperlipidemia, unspecified; E11.319 Type 2 diabetes mellitus with unspecified diabetic retinopathy without macular edema; I10 Essential (primary) hypertension; I25.10 Atherosclerotic heart disease of native coronary artery without angina pectoris; Z95.1 Presence of aortocoronary bypass graft
CPT/HCPCS: 0241U-QW; 36415; 71045-TC-FY; 80053; 81003; 82010; 82803; 82962; 83036; 83735; 84443; 84484; 85025; 87086; 87651; 93005; 93010; 97116-GP; 97161-GP; 99285-25

== ENCOUNTER 2023-10-22 10:33 | Observation (INO) | payer OTHER ==
[2023-10-22 13:14] LABS: BASO % 0.4 % (0-2.0); EOS % 4.2 % (0-4.5); HEMATOCRIT 28.2 % (35.4-49); HEMOGLOBIN 9.7 GM/dL (11.7-16.9); LYMPH % 19.6 % (8-40); MCH 30.6 pg (25.7-33.7); MCHC 34.6 g/dl (32.0-35.9); MEAN CELL VOLUME 88.7 fl (80-96); MEAN PLT VOLUME 8.9 fl (7.5-11.1); NEUT % 65.8 % (42.8-82.8); PLATELET COUNT 144 10^3/uL (134-434); RBC 3.18 M/mm3 (4.00-5.60); RDW 13.5 % (11.9-15.9); WHITE BLOOD COUNT 5.7 K/mm3 (4.0-10.0)
[2023-10-22 13:33] LABS: POTASSIUM 5.3 mmol/L (3.5-5.1)
[2023-10-22 13:35] LABS: ALBUMIN 3.8 g/dl (3.4-5.0); CALCIUM 9.3 mg/dL (8.5-10.1)
[2023-10-22 13:36] LABS: BLOOD UREA NITROGEN 38.8 mg/dL (7-18)
[2023-10-22] MEDS: SODIUM CHLORIDE 0.9% 500 ML INFUS.BAG IV ONE (13:36)
[2023-10-22 13:39] LABS: CREATININE 1.7 mg/dL (0.55-1.3)
[2023-10-22 13:40] LABS: BILIRUBIN,TOTAL 2.2 mg/dL (0.2-1)
[2023-10-22 13:41] LABS: TOT PROT 6.9 g/dl (6.4-8.2)
[2023-10-22 15:36] LABS: RETICULOCYTES 0.72 % (0.5-1.5)
[2023-10-22 15:42] LABS: BILIRUBIN,DIRECT 0.4 mg/dL (0.0-0.2)
[2023-10-22] MEDS: INSULIN ASPART SLIDING SCALE (NOVOLOG) 1 VIAL SQ SCH (19:28)
[2023-10-22] MEDS: SODIUM CHLORIDE 1,000 ML IV SCH (19:51)
[2023-10-22 19:58] LABS: PH,URINE 5.5 (5.0-8.0); URINE APPEARANCE CLEAR; URINE BILIRUBIN NEGATIVE (NEGATIVE); URINE COLOR YELLOW; URINE GLUCOSE (UA) NEGATIVE (NEGATIVE); URINE KETONE NEGATIVE (NEGATIVE); URINE LEUK ESTERASE NEGATIVE (NEGATIVE); URINE NITRITE NEGATIVE (NEGATIVE); URINE PROTEIN NEGATIVE (NEGATIVE); URINE UROBILINOGEN 0.2 mg/dL (0.2-1.0)
[2023-10-22] MEDS ORDERED: ATORVASTATIN CA 80 MG TABLET (FP) ONE (22:33)
[2023-10-22] MEDS ORDERED: METOPROLOL TARTRATE 25 MG TABLET (FP) ONE (22:33)
[2023-10-22] MEDS ORDERED: LOPERAMIDE HCL 2 MG CAPSULE ONE (22:33)
[2023-10-22] MEDS: LOPERAMIDE HCL 2 MG CAPSULE PO SCH (22:58)
[2023-10-22] MEDS: ATORVASTATIN CA 80 MG TABLET (FP) PO SCH (22:58)
[2023-10-22] MEDS: METOPROLOL TARTRATE 25 MG TABLET (FP) PO SCH (22:59)
[2023-10-23 00:02] VITALS: BMI 26.6
[2023-10-23 07:06] LABS: BASO % 0.4 % (0-2.0); EOS % 4.6 % (0-4.5); HEMATOCRIT 25.5 % (35.4-49); HEMOGLOBIN 8.8 GM/dL (11.7-16.9); LYMPH % 24.8 % (8-40); MCH 30.6 pg (25.7-33.7); MCHC 34.7 g/dl (32.0-35.9); MEAN CELL VOLUME 88.1 fl (80-96); MEAN PLT VOLUME 9.1 fl (7.5-11.1); MONO % 10.1 % (3.8-10.2); NEUT % 60.1 % (42.8-82.8); PLATELET COUNT 126 10^3/uL (134-434); RBC 2.89 M/mm3 (4.00-5.60); RDW 13.4 % (11.9-15.9); WHITE BLOOD COUNT 4.8 K/mm3 (4.0-10.0)
[2023-10-23 07:22] LABS: CALCIUM 8.3 mg/dL (8.5-10.1)
[2023-10-23 07:23] LABS: ALBUMIN 3.4 g/dl (3.4-5.0); MAGNESIUM 1.4 mg/dL (1.8-2.4)
[2023-10-23 07:26] LABS: PHOSPHOROUS 2.2 mg/dL (2.5-4.9)
[2023-10-23 07:28] LABS: BILIRUBIN,TOTAL 2.1 mg/dL (0.2-1)
[2023-10-23] MEDS: ENOXAPARIN NA (PORCINE) 40 MG/0.4 ML DISP.SYRIN SQ SCH (09:04)
[2023-10-23] MEDS: CLOPIDOGREL BISULFATE 75 MG TABLET (FP) PO SCH (09:04)
[2023-10-23] MEDS: PARoxetine HCL 20 MG TABLET PO SCH (09:04)
[2023-10-23] MEDS: ASPIRIN COATED 81 MG TABLET.EC PO SCH (09:06)
[2023-10-23] MEDS: LOSARTAN POTASSIUM 25 MG TABLET PO SCH (09:06)
[2023-10-23] MEDS: MAGNESIUM SULFATE IN WATER 2 GM/50 ML IVPB IVPB ONE (14:48)
[2023-10-23] MEDS: PANTOPRAZOLE 40 MG TABLET PO SCH (14:48)
[2023-10-23 15:22] VITALS: RESP 18
[2023-10-23] MEDS: MIDODRINE HCL 2.5 MG TABLET PO SCH (17:20)
[2023-10-23] MEDS: INSULIN ASPART SLIDING SCALE (NOVOLOG) 1 VIAL SQ SCH (21:17)
[2023-10-23] MEDS: ATORVASTATIN CA 80 MG TABLET (FP) PO SCH (21:17)
[2023-10-24] MEDS: METOPROLOL TARTRATE 25 MG TABLET (FP) PO SCH (01:14)
[2023-10-24] MEDS: SODIUM CHLORIDE 1,000 ML IV SCH (06:48)
[2023-10-24 09:31] LABS: BASO % 0.7 % (0-2.0); EOS % 4.8 % (0-4.5); HEMATOCRIT 26.1 % (35.4-49); HEMOGLOBIN 9.1 GM/dL (11.7-16.9); LYMPH % 21.4 % (8-40); MCHC 34.7 g/dl (32.0-35.9); MEAN CELL VOLUME 86.2 fl (80-96); MEAN PLT VOLUME 9.1 fl (7.5-11.1); NEUT % 61.1 % (42.8-82.8); PLATELET COUNT 138 10^3/uL (134-434); RBC 3.03 M/mm3 (4.00-5.60); RDW 13.4 % (11.9-15.9); WHITE BLOOD COUNT 4.3 K/mm3 (4.0-10.0)
[2023-10-24 09:45] LABS: POTASSIUM 4.5 mmol/L (3.5-5.1)
[2023-10-24 09:54] LABS: BLOOD UREA NITROGEN 15.7 mg/dL (7-18); CALCIUM 8.7 mg/dL (8.5-10.1)
[2023-10-24 09:55] LABS: MAGNESIUM 1.8 mg/dL (1.8-2.4)
[2023-10-24 10:20] VITALS: BP 149/63; PULSE 62; TEMP 98.8
[2023-10-24] MEDS: ASPIRIN COATED 81 MG TABLET.EC PO SCH (10:57)
[2023-10-24] MEDS: CLOPIDOGREL BISULFATE 75 MG TABLET (FP) PO SCH (10:57)
[2023-10-24] MEDS: PANTOPRAZOLE 40 MG TABLET PO SCH (10:57)
[2023-10-24] MEDS: LOSARTAN POTASSIUM 25 MG TABLET PO SCH (10:58)
[2023-10-24] MEDS: PARoxetine HCL 20 MG TABLET PO SCH (10:59)
== END 2023-10-24 15:11 | disposition home or self-care (01) ==
LOC: JER 10:33 → JERBED 15:10 → J4W 23:21 → J5S 10-23 17:38
PROVIDERS: ADMIT Internal Medicine; ATTEND Internal Medicine
PROC: 3E013VG Introduction of Insulin into Subcutaneous Tissue, Percutaneous Approach (ICD-10-PCS; principal; 2023-10-22)
PROC: 3E033GC Introduction of Other Therapeutic Substance into Peripheral Vein, Percutaneous Approach (ICD-10-PCS; 2023-10-22)
PROC: 3E0337Z Introduction of Electrolytic and Water Balance Substance into Peripheral Vein, Percutaneous Approach (ICD-10-PCS; 2023-10-22)
PROC: 3E023GC Introduction of Other Therapeutic Substance into Muscle, Percutaneous Approach (ICD-10-PCS; 2023-10-22)
DX: N17.9 Acute kidney failure, unspecified (principal); I95.1 Orthostatic hypotension; M62.81 Muscle weakness (generalized); R26.81 Unsteadiness on feet; E11.9 Type 2 diabetes mellitus without complications; Z79.4 Long term (current) use of insulin; Z96.41 Presence of insulin pump (external) (internal); I10 Essential (primary) hypertension; E78.5 Hyperlipidemia, unspecified; Z95.1 Presence of aortocoronary bypass graft; I69.898 Other sequelae of other cerebrovascular disease; Z88.0 Allergy status to penicillin; Z88.2 Allergy status to sulfonamides; Z87.891 Personal history of nicotine dependence
CPT/HCPCS: 0241U-QW; 36415; 72192-TC; 76705-TC; 80048; 80053; 81003; 82248; 82607; 82728; 82746; 82962; 83036; 83540; 83550; 83615; 83735; 84100; 84484; 85025; 85045; 87635; 93005; 93010; 96361; 96365; 96372; 97116-GP; 97162-GP; 99285-25; G0378

== ENCOUNTER 2024-08-08 12:30 | Inpatient (IN) | payer OTHER ==
[2024-08-08 14:49] LABS: ABSOLUTE IMMATURE GRANULOCYTES 0.03 x10^3/uL (0.0-0.031); BASOPHILS # 0.03 x10^3/uL (0.01-0.08); EOSINOPHIL % 1.3 % (0.8-7.0); HEMATOCRIT 27.7 % (40.1-51.0); HEMOGLOBIN 8.8 g/dL (13.7-17.5); MCHC 31.8 g/dl (32.3-36.5); MEAN CELL VOLUME 91.1 fl (79.0-92.2); MEAN PLT VOLUME 9.9 fl (9.4-12.4); MONOCYTE # 0.73 x10^3/uL (0.30-0.82); MONOCYTE % 9.5 % (5.3-12.2); PLATELET COUNT 181 x10^3/uL (163-337); RDW 12.4 % (12.2-16.6)
[2024-08-08 14:56] LABS: INR 1.11 (0.83-1.09); PROTHROMBIN TIME (PATIENT) 12.1 SEC (9.7-13.0)
[2024-08-08 14:59] LABS: ACTIVATED PTT 31.4 SECONDS (25.2-36.5)
[2024-08-08 15:13] LABS: POTASSIUM 5.2 mmol/L (3.5-5.1)
[2024-08-08 15:17] LABS: CALCIUM 9.2 mg/dL (8.5-10.1)
[2024-08-08 15:18] LABS: ALBUMIN 3.6 g/dl (3.4-5.0); BLOOD UREA NITROGEN 28.6 mg/dL (7-18)
[2024-08-08 15:20] LABS: CREATININE 1.5 mg/dL (0.55-1.3)
[2024-08-08 15:22] LABS: BILIRUBIN,TOTAL 1.3 mg/dL (0.2-1); TOT PROT 6.7 g/dl (6.4-8.2)
[2024-08-08 15:29] LABS: ERYTHROCYTE SEDIMENTATION RATE 64 mm/hr (0-20)
[2024-08-08 16:05] LABS: BILIRUBIN,DIRECT 0.4 mg/dL (0.0-0.2)
[2024-08-08] MEDS: INSULIN (NOVOLOG) ASPART 100 UNITS/ML 10ML VIAL SQ ONE (16:28)
[2024-08-08] MEDS ORDERED: INSULIN ASPART SLIDING SCALE (NOVOLOG) 1 VIAL SQ SCH (16:30)
[2024-08-08] MEDS: INSULIN ASPART SLIDING SCALE (NOVOLOG) 1 VIAL SQ SCH (17:22)
[2024-08-08] MEDS ORDERED: INSULIN ASPART SLIDING SCALE (NOVOLOG) 1 VIAL SQ ONE (17:23)
[2024-08-08] MEDS ORDERED: ACETAMINOPHEN 325 MG TABLET (FP) PO PRN (20:11)
[2024-08-08] MEDS ORDERED: DOCUSATE SODIUM 100 MG CAPSULE (FP) PO PRN (20:11)
[2024-08-08] MEDS: SODIUM CHLORIDE 1,000 ML IV STA (22:03)
[2024-08-09] MEDS: SODIUM CHLORIDE 0.45% 1,000 ML IV SCH (01:53)
[2024-08-09] MEDS: PARoxetine HCL 20 MG TABLET PO SCH (06:40)
[2024-08-09] MEDS: CLOPIDOGREL BISULFATE 75 MG TABLET (FP) PO SCH ×2 (06:40→09:23)
[2024-08-09] MEDS: metFORMIN HCL 500 MG TABLET (FP) PO SCH (07:50)
[2024-08-09 08:27] LABS: ABSOLUTE IMMATURE GRANULOCYTES 0.02 x10^3/uL (0.0-0.031); BASOPHILS # 0.02 x10^3/uL (0.01-0.08); EOSINOPHIL % 2.4 % (0.8-7.0); EOSINOPHILS # 0.13 x10^3/uL (0.04-0.54); HEMOGLOBIN 9.2 g/dL (13.7-17.5); MCHC 32.9 g/dl (32.3-36.5); MEAN PLT VOLUME 10.9 fl (9.4-12.4); MONOCYTE # 0.64 x10^3/uL (0.30-0.82); MONOCYTE % 11.8 % (5.3-12.2); PLATELET COUNT 184 x10^3/uL (163-337); RDW 12.2 % (12.2-16.6)
[2024-08-09 08:39] LABS: POTASSIUM 4.6 mmol/L (3.5-5.1)
[2024-08-09 08:44] LABS: CALCIUM 8.9 mg/dL (8.5-10.1)
[2024-08-09 08:45] LABS: BLOOD UREA NITROGEN 24.4 mg/dL (7-18); MAGNESIUM 1.4 mg/dL (1.8-2.4)
[2024-08-09 08:48] LABS: CREATININE 1.3 mg/dL (0.55-1.3); PHOSPHOROUS 2.2 mg/dL (2.5-4.9)
[2024-08-09] MEDS: EZETIMIBE 10 MG TABLET (FP) PO SCH (09:22)
[2024-08-09] MEDS: METOPROLOL TARTRATE 25 MG TABLET (FP) PO SCH (09:22)
[2024-08-09] MEDS: LOSARTAN POTASSIUM 25 MG TABLET PO SCH (09:23)
[2024-08-09] MEDS: MIDODRINE HCL 2.5 MG TABLET PO SCH (09:23)
[2024-08-09] MEDS: ASPIRIN COATED 81 MG TABLET.EC PO SCH (09:23)
[2024-08-09] MEDS: PANTOPRAZOLE 20 MG TABLET PO SCH (09:23)
[2024-08-09] MEDS: ATORVASTATIN CA 80 MG TABLET (FP) PO SCH (21:29)
[2024-08-09] MEDS: INSULIN GLARGINE (LANTUS) 100 UNITS/ML UNITS SQ SCH (21:29)
[2024-08-10 08:57] LABS: ABSOLUTE IMMATURE GRANULOCYTES 0.02 x10^3/uL (0.0-0.031); BASOPHILS # 0.03 x10^3/uL (0.01-0.08); EOSINOPHIL % 3.1 % (0.8-7.0); HEMATOCRIT 27.7 % (40.1-51.0); HEMOGLOBIN 8.9 g/dL (13.7-17.5); MCHC 32.1 g/dl (32.3-36.5); MEAN CELL VOLUME 88.2 fl (79.0-92.2); MEAN PLT VOLUME 10.4 fl (9.4-12.4); MONOCYTE # 0.59 x10^3/uL (0.30-0.82); MONOCYTE % 9.2 % (5.3-12.2); PLATELET COUNT 207 x10^3/uL (163-337); RDW 12.1 % (12.2-16.6)
[2024-08-10 09:25] LABS: POTASSIUM 4.5 mmol/L (3.5-5.1)
[2024-08-10 09:35] LABS: CALCIUM 9.2 mg/dL (8.5-10.1)
[2024-08-10 09:36] LABS: BLOOD UREA NITROGEN 17.4 mg/dL (7-18)
[2024-08-10] MEDS: CEFEPIME 1 GM in DEXTROSE 5%-WATER 100 ML IVPB SCH (14:03)
[2024-08-10] MEDS: VANCOMYCIN 1 GM PREMIX (F) 1 GM/200 ML BAG IVPB SCH (15:03)
[2024-08-11 09:40] LABS: ABSOLUTE IMMATURE GRANULOCYTES 0.03 x10^3/uL (0.0-0.031); BASOPHILS # 0.03 x10^3/uL (0.01-0.08); EOSINOPHIL % 3.4 % (0.8-7.0); EOSINOPHILS # 0.18 x10^3/uL (0.04-0.54); HEMATOCRIT 28.1 % (40.1-51.0); HEMOGLOBIN 9.1 g/dL (13.7-17.5); MCHC 32.4 g/dl (32.3-36.5); MEAN CELL VOLUME 88.6 fl (79.0-92.2); MEAN PLT VOLUME 10.8 fl (9.4-12.4); MONOCYTE # 0.49 x10^3/uL (0.30-0.82); MONOCYTE % 9.2 % (5.3-12.2); PLATELET COUNT 193 x10^3/uL (163-337); RDW 12.2 % (12.2-16.6)
[2024-08-11 10:14] LABS: POTASSIUM 4.4 mmol/L (3.5-5.1)
[2024-08-11 10:27] LABS: BLOOD UREA NITROGEN 16.5 mg/dL (7-18); CALCIUM 8.9 mg/dL (8.5-10.1)
[2024-08-11 10:30] LABS: CREATININE 1.1 mg/dL (0.55-1.3)
[2024-08-11] MEDS: MIDODRINE HCL 2.5 MG TABLET PO SCH (10:56)
[2024-08-12 07:42] LABS: ABSOLUTE IMMATURE GRANULOCYTES 0.02 x10^3/uL (0.0-0.031); BASOPHILS # 0.04 x10^3/uL (0.01-0.08); EOSINOPHIL % 4.1 % (0.8-7.0); EOSINOPHILS # 0.18 x10^3/uL (0.04-0.54); HEMATOCRIT 26.6 % (40.1-51.0); HEMOGLOBIN 8.6 g/dL (13.7-17.5); MCHC 32.3 g/dl (32.3-36.5); MEAN CELL VOLUME 88.7 fl (79.0-92.2); MEAN PLT VOLUME 10.4 fl (9.4-12.4); MONOCYTE # 0.48 x10^3/uL (0.30-0.82); PLATELET COUNT 175 x10^3/uL (163-337)
[2024-08-12 07:59] LABS: POTASSIUM 4.1 mmol/L (3.5-5.1)
[2024-08-12 08:00] LABS: CALCIUM 8.6 mg/dL (8.5-10.1)
[2024-08-12 08:01] LABS: BLOOD UREA NITROGEN 15.3 mg/dL (7-18)
[2024-08-12 08:04] LABS: CREATININE 1.2 mg/dL (0.55-1.3)
[2024-08-13 08:46] LABS: ABSOLUTE IMMATURE GRANULOCYTES 0.02 x10^3/uL (0.0-0.031); BASOPHILS # 0.03 x10^3/uL (0.01-0.08); EOSINOPHIL % 5.1 % (0.8-7.0); EOSINOPHILS # 0.22 x10^3/uL (0.04-0.54); HEMATOCRIT 29.3 % (40.1-51.0); HEMOGLOBIN 9.7 g/dL (13.7-17.5); MCHC 33.1 g/dl (32.3-36.5); MEAN PLT VOLUME 10.2 fl (9.4-12.4); MONOCYTE # 0.41 x10^3/uL (0.30-0.82); MONOCYTE % 9.4 % (5.3-12.2); PLATELET COUNT 209 x10^3/uL (163-337); RDW 12.1 % (12.2-16.6)
[2024-08-13 09:08] LABS: POTASSIUM 3.9 mmol/L (3.5-5.1)
[2024-08-13 09:29] LABS: CALCIUM 9.4 mg/dL (8.5-10.1)
[2024-08-13 09:30] LABS: BLOOD UREA NITROGEN 16.3 mg/dL (7-18)
[2024-08-13 09:33] LABS: CREATININE 1.2 mg/dL (0.55-1.3)
[2024-08-14 09:53] LABS: ABSOLUTE IMMATURE GRANULOCYTES 0.04 x10^3/uL (0.0-0.031); BASOPHILS # 0.04 x10^3/uL (0.01-0.08); EOSINOPHIL % 3.5 % (0.8-7.0); EOSINOPHILS # 0.19 x10^3/uL (0.04-0.54); HEMATOCRIT 28.3 % (40.1-51.0); HEMOGLOBIN 9.2 g/dL (13.7-17.5); MCHC 32.5 g/dl (32.3-36.5); MEAN CELL VOLUME 88.2 fl (79.0-92.2); MEAN PLT VOLUME 10.4 fl (9.4-12.4); MONOCYTE # 0.52 x10^3/uL (0.30-0.82); MONOCYTE % 9.6 % (5.3-12.2); PLATELET COUNT 202 x10^3/uL (163-337); RDW 12.1 % (12.2-16.6)
[2024-08-14 10:17] LABS: POTASSIUM 4.2 mmol/L (3.5-5.1)
[2024-08-14 10:23] LABS: BLOOD UREA NITROGEN 17.9 mg/dL (7-18); CALCIUM 9.4 mg/dL (8.5-10.1)
[2024-08-14 10:58] LABS: CREATININE 1.2 mg/dL (0.55-1.3)
[2024-08-14] MEDS: INSULIN GLARGINE (LANTUS) 100 UNITS/ML UNITS SQ SCH (15:40)
[2024-08-14] MEDS ORDERED: INSULIN GLARGINE (LANTUS) 100 UNITS/ML UNITS SQ SCH (16:00)
[2024-08-14 17:12] LABS: INR 1.06 (0.83-1.09); PROTHROMBIN TIME (PATIENT) 11.6 SEC (9.7-13.0)
[2024-08-15] MEDS ORDERED: PATIENT'S OWN MEDICATION (NON-FORMULARY) (Insulin Glargine,Hum.Rec.Anlog [Basaglar Kwikpen SQ SCH (07:00)
[2024-08-15] MEDS ORDERED: ONDANSETRON 4 MG/2 ML VIAL IVPUSH PRN ×2 (07:33→09:29)
[2024-08-15] MEDS ORDERED: LIDOCAINE HCL 1%, 10 MG/ML (20ML VIAL) ONE (08:13)
[2024-08-15] MEDS ORDERED: BUPIVACAINE HCL/PF 0.5% (5MG/ML) 10 ML VIAL ONE (08:13)
[2024-08-15 08:28] LABS: ABSOLUTE IMMATURE GRANULOCYTES 0.05 x10^3/uL (0.0-0.031); BASOPHILS # 0.04 x10^3/uL (0.01-0.08); EOSINOPHIL % 3.8 % (0.8-7.0); EOSINOPHILS # 0.24 x10^3/uL (0.04-0.54); HEMATOCRIT 30.7 % (40.1-51.0); HEMOGLOBIN 10.2 g/dL (13.7-17.5); MCHC 33.2 g/dl (32.3-36.5); MEAN CELL VOLUME 88.2 fl (79.0-92.2); MEAN PLT VOLUME 10.3 fl (9.4-12.4); MONOCYTE # 0.48 x10^3/uL (0.30-0.82); MONOCYTE % 7.6 % (5.3-12.2); PLATELET COUNT 219 x10^3/uL (163-337); RDW 12.4 % (12.2-16.6)
[2024-08-15] MEDS ORDERED: GENTAMICIN SO4 80 MG/2 ML VIAL ONE (08:39)
[2024-08-15] MEDS ORDERED: MIDAZOLAM HCL 2 MG/2 ML SINGLE DOSE VIAL ONE (08:47)
[2024-08-15 08:50] LABS: POTASSIUM 4.1 mmol/L (3.5-5.1)
[2024-08-15 08:56] LABS: ALBUMIN 3.5 g/dl (3.4-5.0); BLOOD UREA NITROGEN 18.7 mg/dL (7-18); CALCIUM 9.6 mg/dL (8.5-10.1)
[2024-08-15 08:59] LABS: CREATININE 1.3 mg/dL (0.55-1.3)
[2024-08-15 09:01] LABS: BILIRUBIN,TOTAL 1.1 mg/dL (0.2-1)
[2024-08-15] MEDS ORDERED: DOCUSATE SODIUM 100 MG CAPSULE (FP) PO PRN (09:29)
[2024-08-15] MEDS ORDERED: LACTATED RINGERS SOLUTION 1,000 ML IV SCH (09:29)
[2024-08-15 10:02] LABS: ABSOLUTE IMMATURE GRANULOCYTES 0.04 x10^3/uL (0.0-0.031); BASOPHILS # 0.04 x10^3/uL (0.01-0.08); EOSINOPHIL % 3.8 % (0.8-7.0); EOSINOPHILS # 0.21 x10^3/uL (0.04-0.54); HEMATOCRIT 27.1 % (40.1-51.0); HEMOGLOBIN 8.9 g/dL (13.7-17.5); MCHC 32.8 g/dl (32.3-36.5); MEAN CELL VOLUME 87.1 fl (79.0-92.2); MEAN PLT VOLUME 10.4 fl (9.4-12.4); MONOCYTE # 0.56 x10^3/uL (0.30-0.82); PLATELET COUNT 185 x10^3/uL (163-337); RDW 12.3 % (12.2-16.6)
[2024-08-15] MEDS: METOPROLOL TARTRATE 25 MG TABLET (FP) PO SCH (11:04)
[2024-08-15] MEDS: LOSARTAN POTASSIUM 25 MG TABLET PO SCH (11:04)
[2024-08-15] MEDS: PANTOPRAZOLE 20 MG TABLET PO SCH (11:05)
[2024-08-15] MEDS: MIDODRINE HCL 2.5 MG TABLET PO SCH (11:05)
[2024-08-15] MEDS: EZETIMIBE 10 MG TABLET (FP) PO SCH (11:05)
[2024-08-15] MEDS: CEFEPIME HCL/D5W 1 GM/50 ML BAG IVPB SCH (11:06)
[2024-08-15] MEDS: INSULIN ASPART SLIDING SCALE (NOVOLOG) 1 VIAL SQ SCH (11:23)
[2024-08-15] MEDS: LACTATED RINGERS SOLUTION 1,000 ML IV SCH (13:17)
[2024-08-15] MEDS: INSULIN GLARGINE (LANTUS) 100 UNITS/ML UNITS SQ SCH (16:48)
[2024-08-15] MEDS: ATORVASTATIN CA 80 MG TABLET (FP) PO SCH (21:01)
[2024-08-16 09:38] LABS: ABSOLUTE IMMATURE GRANULOCYTES 0.05 x10^3/uL (0.0-0.031); BASOPHILS # 0.04 x10^3/uL (0.01-0.08); EOSINOPHIL % 3.7 % (0.8-7.0); EOSINOPHILS # 0.23 x10^3/uL (0.04-0.54); HEMATOCRIT 30.1 % (40.1-51.0); HEMOGLOBIN 9.9 g/dL (13.7-17.5); MCHC 32.9 g/dl (32.3-36.5); MEAN CELL VOLUME 88.3 fl (79.0-92.2); MEAN PLT VOLUME 10.4 fl (9.4-12.4); MONOCYTE # 0.66 x10^3/uL (0.30-0.82); MONOCYTE % 10.5 % (5.3-12.2); PLATELET COUNT 213 x10^3/uL (163-337); RDW 12.5 % (12.2-16.6)
[2024-08-16 09:56] LABS: POTASSIUM 3.9 mmol/L (3.5-5.1)
[2024-08-16 10:13] LABS: CALCIUM 9.3 mg/dL (8.5-10.1)
[2024-08-16 10:14] LABS: ALBUMIN 3.5 g/dl (3.4-5.0); BLOOD UREA NITROGEN 19.1 mg/dL (7-18)
[2024-08-16 10:17] LABS: CREATININE 1.2 mg/dL (0.55-1.3)
[2024-08-16 10:19] LABS: BILIRUBIN,TOTAL 1.4 mg/dL (0.2-1)
[2024-08-16 10:42] LABS: TOT PROT 6.8 g/dl (6.4-8.2)
[2024-08-16] MEDS: INSULIN GLARGINE (LANTUS) 100 UNITS/ML UNITS SQ SCH (16:33)
[2024-08-17] MEDS: VANCOMYCIN/WATER FOR INJ (PEG) 1,000 MG/200 ML BAG IVPB SCH (08:24)
[2024-08-17 09:20] LABS: ABSOLUTE IMMATURE GRANULOCYTES 0.03 x10^3/uL (0.0-0.031); BASOPHILS # 0.04 x10^3/uL (0.01-0.08); EOSINOPHIL % 3.7 % (0.8-7.0); HEMATOCRIT 29.1 % (40.1-51.0); HEMOGLOBIN 9.4 g/dL (13.7-17.5); MCHC 32.3 g/dl (32.3-36.5); MEAN CELL VOLUME 88.7 fl (79.0-92.2); MEAN PLT VOLUME 10.3 fl (9.4-12.4); MONOCYTE # 0.67 x10^3/uL (0.30-0.82); MONOCYTE % 12.5 % (5.3-12.2); PLATELET COUNT 193 x10^3/uL (163-337); RDW 12.4 % (12.2-16.6)
[2024-08-17] MEDS: CLOPIDOGREL BISULFATE 75 MG TABLET (FP) PO SCH (09:42)
[2024-08-17 09:43] LABS: POTASSIUM 4.6 mmol/L (3.5-5.1)
[2024-08-17 09:55] LABS: ALBUMIN 3.3 g/dl (3.4-5.0); BLOOD UREA NITROGEN 18.7 mg/dL (7-18); CALCIUM 9.1 mg/dL (8.5-10.1)
[2024-08-17 09:56] LABS: BILIRUBIN,TOTAL 1.3 mg/dL (0.2-1); CREATININE 1.2 mg/dL (0.55-1.3)
[2024-08-17 09:58] LABS: TOT PROT 6.5 g/dl (6.4-8.2)
[2024-08-17] MEDS: INSULIN GLARGINE (LANTUS) 100 UNITS/ML UNITS SQ SCH (21:00)
[2024-08-18] MEDS ORDERED: LABETALOL HCL 20 MG/4 ML VIAL ONE (11:01)
[2024-08-18] MEDS: TENECTEplase 50 MG VIAL IVPUSH ONE ×2 (11:41→11:47)
[2024-08-18 11:50] LABS: ABSOLUTE IMMATURE GRANULOCYTES 0.04 x10^3/uL (0.0-0.031); BASOPHILS # 0.03 x10^3/uL (0.01-0.08); EOSINOPHIL % 1.7 % (0.8-7.0); HEMATOCRIT 28.6 % (40.1-51.0); HEMOGLOBIN 9.5 g/dL (13.7-17.5); MCHC 33.2 g/dl (32.3-36.5); MEAN CELL VOLUME 87.5 fl (79.0-92.2); MEAN PLT VOLUME 10.4 fl (9.4-12.4); MONOCYTE # 0.57 x10^3/uL (0.30-0.82); MONOCYTE % 9.7 % (5.3-12.2); PLATELET COUNT 199 x10^3/uL (163-337); RDW 12.7 % (12.2-16.6)
[2024-08-18 11:58] LABS: INR 1.06 (0.83-1.09); PROTHROMBIN TIME (PATIENT) 11.6 SEC (9.7-13.0)
[2024-08-18 12:01] LABS: ACTIVATED PTT 29.8 SECONDS (25.2-36.5)
[2024-08-18 12:16] LABS: POTASSIUM 4.5 mmol/L (3.5-5.1)
[2024-08-18 12:19] LABS: ALBUMIN 3.5 g/dl (3.4-5.0); CALCIUM 9.1 mg/dL (8.5-10.1)
[2024-08-18 12:21] LABS: BLOOD UREA NITROGEN 18.4 mg/dL (7-18)
[2024-08-18 12:23] LABS: CREATININE 1.2 mg/dL (0.55-1.3)
[2024-08-18 12:25] LABS: TOT PROT 6.6 g/dl (6.4-8.2)
[2024-08-18 12:26] LABS: BILIRUBIN,TOTAL 1.4 mg/dL (0.2-1)
[2024-08-18] MEDS: INSULIN (NOVOLOG) ASPART 100 UNITS/ML 10ML VIAL SQ ONE (12:44)
[2024-08-18] MEDS ORDERED: LABETALOL HCL 20 MG/4 ML VIAL IVPUSH PRN (12:49)
[2024-08-18 13:40] LABS: EPI CELLS 3 /uL (0-25.1); HYALINE CASTS 0 /uL (0-3.1); PH,URINE 6.5 (5.0-8.0); URINE APPEARANCE CLEAR; URINE BACTERIA 1 /uL (0-1359); URINE BILIRUBIN NEGATIVE (NEGATIVE); URINE COLOR YELLOW; URINE GLUCOSE (UA) 2+ (NEGATIVE); URINE KETONE NEGATIVE (NEGATIVE); URINE LEUK ESTERASE NEGATIVE (NEGATIVE); URINE NITRITE NEGATIVE (NEGATIVE); URINE PROTEIN 1+ (NEGATIVE); URINE RBC 15 /uL (0-23.9); URINE UROBILINOGEN 0.2 mg/dL (0.2-1.0); URINE WBC 2 /uL (0-25.8)
[2024-08-18] MEDS: ACETAMINOPHEN 325 MG TABLET (FP) PO PRN (18:43)
[2024-08-18] MEDS: MUPIROCIN 2% TOPICAL OINTMENT FOR DECOLONIZATION NS SCH (22:10)
[2024-08-18] MEDS: CHLORHEXIDINE GLUCONATE 4% CLEANSER FOR DECOLONIZATION TP SCH (22:10)
[2024-08-18] MEDS: METOPROLOL TARTRATE 25 MG TABLET (FP) PO SCH (22:15)
[2024-08-18] MEDS: INSULIN GLARGINE (LANTUS) 100 UNITS/ML UNITS SQ SCH (22:15)
[2024-08-19] MEDS: LABETALOL HCL 20 MG/4 ML VIAL IVPUSH PRN (03:10)
[2024-08-19 07:13] LABS: HEMATOCRIT 28.1 % (40.1-51.0); MEAN CELL VOLUME 88.4 fl (79.0-92.2); MEAN PLT VOLUME 10.7 fl (9.4-12.4); PLATELET COUNT 178 x10^3/uL (163-337); RDW 12.8 % (12.2-16.6)
[2024-08-19 07:24] LABS: POTASSIUM 3.7 mmol/L (3.5-5.1)
[2024-08-19 07:28] LABS: ALBUMIN 3.4 g/dl (3.4-5.0); BLOOD UREA NITROGEN 18.2 mg/dL (7-18); CALCIUM 9.4 mg/dL (8.5-10.1)
[2024-08-19 07:31] LABS: CREATININE 1.1 mg/dL (0.55-1.3)
[2024-08-19 07:32] LABS: BILIRUBIN,TOTAL 1.6 mg/dL (0.2-1); PHOSPHOROUS 3.2 mg/dL (2.5-4.9)
[2024-08-19 07:33] LABS: TOT PROT 6.3 g/dl (6.4-8.2)
[2024-08-19 14:55] VITALS: BMI 25.9
[2024-08-19 19:46] LABS: Reticulocyte % 2.67 % (0.51-1.81)
[2024-08-19] MEDS: INSULIN GLARGINE (LANTUS) 100 UNITS/ML UNITS SQ SCH (21:46)
[2024-08-20 07:38] LABS: ABSOLUTE IMMATURE GRANULOCYTES 0.03 x10^3/uL (0.0-0.031); BASOPHILS # 0.03 x10^3/uL (0.01-0.08); EOSINOPHIL % 3.8 % (0.8-7.0); EOSINOPHILS # 0.22 x10^3/uL (0.04-0.54); MCHC 32.1 g/dl (32.3-36.5); MEAN CELL VOLUME 88.9 fl (79.0-92.2); MEAN PLT VOLUME 10.4 fl (9.4-12.4); MONOCYTE # 0.81 x10^3/uL (0.30-0.82); MONOCYTE % 13.9 % (5.3-12.2); PLATELET COUNT 172 x10^3/uL (163-337); RDW 12.9 % (12.2-16.6)
[2024-08-20 07:45] LABS: POTASSIUM 4.3 mmol/L (3.5-5.1)
[2024-08-20 07:50] LABS: BLOOD UREA NITROGEN 19.5 mg/dL (7-18)
[2024-08-20 07:51] LABS: CALCIUM 9.6 mg/dL (8.5-10.1)
[2024-08-20 07:54] LABS: CREATININE 1.2 mg/dL (0.55-1.3)
[2024-08-20] MEDS: ASPIRIN COATED 81 MG TABLET.EC PO SCH (09:00)
[2024-08-20] MEDS: CLOPIDOGREL BISULFATE 75 MG TABLET (FP) PO SCH (09:01)
[2024-08-20] MEDS: ASPIRIN 81 MG CHEWABLE TABLETS PO SCH (13:54)
[2024-08-20 18:12] VITALS: RESP 16
[2024-08-21] MEDS ORDERED: ACETAMINOPHEN 500 MG TABLET (FP) PO PRN (07:07)
[2024-08-21] MEDS ORDERED: DOCUSATE SODIUM 100 MG CAPSULE (FP) PO PRN (07:07)
[2024-08-21] MEDS: METOPROLOL TARTRATE 25 MG TABLET (FP) PO SCH (09:51)
[2024-08-21] MEDS: CLOPIDOGREL BISULFATE 75 MG TABLET (FP) PO SCH (09:51)
[2024-08-21] MEDS: EZETIMIBE 10 MG TABLET (FP) PO SCH (09:52)
[2024-08-21] MEDS: PANTOPRAZOLE 20 MG TABLET PO SCH (09:52)
[2024-08-21 10:31] VITALS: TEMP 98.2
[2024-08-21] MEDS: LOSARTAN POTASSIUM 25 MG TABLET PO SCH (10:37)
[2024-08-21] MEDS: INSULIN ASPART SLIDING SCALE (NOVOLOG) 1 VIAL SQ SCH (10:37)
[2024-08-21 12:13] LABS: ABSOLUTE IMMATURE GRANULOCYTES 0.04 x10^3/uL (0.0-0.031); BASOPHILS # 0.05 x10^3/uL (0.01-0.08); EOSINOPHIL % 4.2 % (0.8-7.0); EOSINOPHILS # 0.29 x10^3/uL (0.04-0.54); HEMATOCRIT 30.8 % (40.1-51.0); MCHC 32.5 g/dl (32.3-36.5); MEAN CELL VOLUME 88.5 fl (79.0-92.2); MEAN PLT VOLUME 10.6 fl (9.4-12.4); MONOCYTE # 0.71 x10^3/uL (0.30-0.82); MONOCYTE % 10.2 % (5.3-12.2); PLATELET COUNT 209 x10^3/uL (163-337); RDW 13.1 % (12.2-16.6)
[2024-08-21 12:32] LABS: POTASSIUM 4.8 mmol/L (3.5-5.1)
[2024-08-21 12:34] LABS: BLOOD UREA NITROGEN 24.3 mg/dL (7-18)
[2024-08-21 12:37] LABS: CREATININE 1.2 mg/dL (0.55-1.3)
[2024-08-21] MEDS ORDERED: RAPID SEQUENCE INTUBATION KIT NR ONE (13:38)
[2024-08-21] MEDS ORDERED: SODIUM BICARBONATE 8.4% 50 MEQ/50 ML DISP.SYRIN ONE (14:03)
[2024-08-21 15:30] VITALS: BP 115/58; PULSE 67
[2024-08-21] MEDS ORDERED: ATORVASTATIN CA 80 MG TABLET (FP) PO SCH (22:00)
[2024-08-21] MEDS ORDERED: INSULIN GLARGINE (LANTUS) 100 UNITS/ML UNITS SQ SCH (22:00)
== END 2024-08-21 17:30 | DRG 616 ==
LOC: JER 12:30 → JERBED 14:11 → J5S 21:10 → JICU 08-18 10:56 → J2W 08-20 21:43
PROVIDERS: ADMIT Student in an Organized Health Care Education/Training Program; ATTEND Internal Medicine
PROC: 0Y6R0Z0 Detachment at Right 2nd Toe, Complete, Open Approach (ICD-10-PCS; principal; 2024-08-15 08:30)
DX: E11.69 Type 2 diabetes mellitus with other specified complication (principal); I63.9 Cerebral infarction, unspecified; M86.8X7 Other osteomyelitis, ankle and foot; R47.01 Aphasia; L03.115 Cellulitis of right lower limb; E11.65 Type 2 diabetes mellitus with hyperglycemia; E11.621 Type 2 diabetes mellitus with foot ulcer; E11.51 Type 2 diabetes mellitus with diabetic peripheral angiopathy without gangrene; I10 Essential (primary) hypertension; E78.5 Hyperlipidemia, unspecified; I25.10 Atherosclerotic heart disease of native coronary artery without angina pectoris; L97.509 Non-pressure chronic ulcer of other part of unspecified foot with unspecified severity; N17.9 Acute kidney failure, unspecified
CPT/HCPCS: 36415; 70450-TC; 70496-TC; 70498-TC; 70551-TC; 73630-TC-RT-FY; 73718-TC-RT; 80048; 80053; 80061; 81003; 82248; 82550; 82728; 82962; 83036; 83540; 83550; 83735; 84100; 84484; 85025; 85027; 85610; 85651; 85730; 86140; 86850; 86900; 86901; 87040; 88305-TC; 88311-TC; 93005; 93010; 93306-TC; 93922; 93925-TC; 94760; 97116-GP; 97162-GP; 99285-25; G0480; J3101; Q9967